=== PATIENT | male | born 1995 | race Caucasian/White ===

== ENCOUNTER 2017-12-13 14:23 | Emergency (ER) | payer OTHER ==
--- OUTSIDE RECORDS SUMMARY | 2017-12-13 14:25 | XMS REPORT ---
:1995 Author Organization eClinicalWorks Care Team Providers Name Role Phone Inna Herring Provider Role Unavailable Allergies No Known Allergies Problems Problem Type Condition Code Onset Dates Condition Status Problem Aspergers' syndrome F84.5 Active Problem Memory deficit R41.3 Active Medications Medication Code System Code Instructions Start End Date Status Dosage Date walking boot [facility] [place] [address] short walking December 12, Active as directed 04-03 boot for ankle 2018 foot fx while up Results No Known Results Summary Purpose [employer]D Submission
--- OUTSIDE RECORDS SUMMARY | 2017-12-13 14:25 | XMS REPORT ---
:1995 Author Organization eClinicalWorks Care Team Providers Name Role Phone Inna Herring Provider Role Unavailable Allergies, Adverse Reactions, Alerts Substance Reaction Event Type N.K.D.A. Info Not Available Non Drug Allergy Problems Problem Type Condition Code Onset Dates Condition Status Problem Aspergers' syndrome F84.5 Active Assessment Memory deficit R41.3 Active Problem Memory deficit R41.3 Active Assessment Arthralgia, unspecified joint M25.50 Active Assessment Aspergers' syndrome F84.5 Active Medications Medication Code System Code Instructions Start End Date Status Dosage Date Benadryl [facility] [address] 25 MG Orally Active 1 tablet Allergy 8-25 every 8 hrs as needed Results No Known Results Summary Purpose eClinicalWorks Submission
--- OUTSIDE RECORDS SUMMARY | 2017-12-13 14:25 | XMS REPORT ---
:1995 Author Organization eClinicalWorks Care Team Providers Name Role Phone Inna Herring Provider Role Unavailable Allergies, Adverse Reactions, Alerts Substance Reaction Event Type N.K.D.A. Info Not Available Non Drug Allergy Problems Problem Type Condition Code Onset Dates Condition Status Assessment Pain in right hand M79.641 Active Problem Aspergers' syndrome F84.5 Active Assessment Memory deficit R41.3 Active Problem Memory deficit R41.3 Active Assessment Pain in right foot M79.671 Active Assessment Pain of left hand M79.642 Active Assessment Aspergers' syndrome F84.5 Active Assessment Pain of left foot M79.672 Active Medications Medication Code Code Instructions Start End Status Dosage System Date Date Benadryl [facility] 57574222112 25 MG Orally Active 1 tablet Allergy every 8 hrs as needed Gabapentin ND 24043742884 300 MG Orally December 05, Active 1 capsule Twice a day 2018 before bedtime Results No Known Results Summary Purpose eClinicalWorks Submission
--- NOTE | 2017-12-13 16:47 | RAD REPORT ---
EXAM DESCRIPTION: RAD - Abdomen 1 View (KUB) - 12/13/2017 4:37 pm CLINICAL HISTORY: Abdominal pain. COMPARISON: None. FINDINGS: The bowel gas pattern is non-obstructive. No evidence of free air or pneumatosis. No suspi cious calcifications. No significant bony findings. Fecal retention in the transverse colon noted. IMPRESSION: Fecal retention in the transverse colon noted.
--- NOTE | 2017-12-13 16:49 | ER ---
Nurse's Notes [facility] Name: iWcho Adams Age: 22 yrs Sex: Male : 1995 Arrival Date: 12/13/2017 Time: 14:27 Bed 27 Private MD: Diagnosis: Constipation Presentation: 12/13 14:28 Presenting complaint: Patient states: i had constipation for days and i had series of hj diarrhea; now my tummy hurts, reports nausea and denies vomiting;. Transition of care: patient was not received from another setting of care. Onset of symptoms was December 13, 2017. Initial Sepsis Screen: Does the patient meet any 2 criteria? No. Patient's initial sepsis screen is negative. Does the patient have a suspected source of infection? No. Patient's initial sepsis screen is negative. Care prior to arrival: None. 14:28 Method Of Arrival: Ambulatory 14:28 Acuity: TAN 3 hj Triage Assessment: 14:31 General: Appears in no apparent distress. uncomfortable, Behavior is calm, cooperative, hj appropriate for age. Pain: Complains of pain in abdomen. GI: Reports lower abdominal pain, upper abdominal pain, nausea. Historical: - Allergies: 14:30 No Known Allergies; hj - Home Meds: 14:30 None [Active]; hj - PMHx: 14:30 None; hj - PSHx: 14:30 None; hj - Immunization history:: Adult Immunizations up to date. - Social history:: Smoking status: Patient/guardian denies using tobacco. Screenin:40 Abuse screen: Denies threats or abuse. Denies injuries from another. Nutritional lk1 screening: No deficits noted. Tuberculosis screening: No symptoms or risk factors identified. Fall Risk None identified. Assessment: 14:31 GI: Bowel sounds present X 4 quads. Abd is soft Abdomen is tender to palpation. hj 16:00 General: Appears in no apparent distress. Behavior is calm, cooperative, appropriate lk1 for age. Pain: Complains of pain in abdomen Pain currently is 4 out of 10 on a pain scale. GI: Bowel sounds present X 4 quads. Abd is soft and non tender. Vital Signs: 14:31 BP 111 / 76; Pulse 104; Resp 18; Temp 97.9(O); Pulse Ox 96% on R/A; Weight 96.16 kg; hj Height 5 ft. 10 in. (177.80 cm); Pain 3/10; 16:00 BP 117 / 72; Pulse 92; Resp 15; Pulse Ox 100% on R/A; lk1 17:00 BP 114 / 72; Pulse 88; Resp 16; Pulse Ox 99% on R/A; lk1 14:31 Body Mass Index 30.42 (96.16 kg, 177.80 cm) ED Course: 14:27 Patient arrived in ED. mr 14:30 Triage completed. hj 14:31 Arm band placed on right wrist. hj 14:52 En Muñoz PA is PHCP. jr8 14:52 Luisito Perdue MD is Attending Physician. jr8 15:17 Lakesha Reeder, RN is Primary Nurse. lk1 15:34 EKG done, by ordnance engineering technician. reviewed by En DIAS. dt2 16:37 XRAY KUB In Process Unspecified. EDMS 17:41 Placed in gown. Bed in low position. Call light in reach. lk1 17:41 No provider procedures requiring assistance completed. Patient did not have IV access lk1 during this emergency room visit. Administered Medications: No medications were administered Outcome: 16:49 Discharge ordered by . jr8 17:41 Discharged to home ambulatory. lk1 17:41 Condition: good 17:41 Discharge instructions given to patient, Instructed on discharge instructions, follow up and referral plans. medication usage, safety practices, Demonstrated understanding of instructions, follow-up care, medications, Prescriptions given X 1. 17:42 Patient left the ED. lk1 Signatures: Dispatcher [employer] EDOK ShyamRadha mr En Muñoz PA PA jr8 Santino Medrano RN RN Lakesha Reeder, RN RN lk1 Karyn Snowden dt2 Corrections: (The following items were deleted from the chart) 14:33 14:31 Pulse 110bpm; Resp 18bpm; Pulse Ox 96% RA; Temp 97.9F Oral; 96.16 kg; Height 5 hj ft. 10 in.; BMI: 30.4; Pain 3/10; hj
--- NOTE | 2017-12-13 16:50 | EDPHYS ---
Physician Documentation [facility] Name: Wicho Adams Age: 22 yrs Sex: Male : 1995 Arrival Date: 12/13/2017 Time: 14:27 Bed 27 Private MD: ED Physician Luisito Perdue HPI: 12/13 15:25 This 22 yrs old Male presents to ER via Ambulatory with complaints of jr8 Constipation. 15:25 Onset: The symptoms/episode began/occurred acutely, 4 day(s) ago. Associated signs and jr8 symptoms: The patient has no apparent associated signs or symptoms. Modifying factors: The patient symptoms are alleviated by nothing, the patient symptoms are aggravated by nothing. The patient has not experienced similar symptoms in the past. The patient has not recently seen a physician. Historical: - Allergies: 14:30 No Known Allergies; hj - Home Meds: 14:30 None [Active]; hj - PMHx: 14:30 None; hj - PSHx: 14:30 None; hj - Immunization history:: Adult Immunizations up to date. - Social history:: Smoking status: Patient/guardian denies using tobacco. ROS: 15:25 Eyes: Negative for injury, pain, redness, and discharge, ENT: Negative for injury, jr8 pain, and discharge, Neck: Negative for injury, pain, and swelling, Cardiovascular: Negative for chest pain, palpitations, and edema, Respiratory: Negative for shortness of breath, cough, wheezing, and pleuritic chest pain, Back: Negative for injury and pain, MS/Extremity: Negative for injury and deformity, Skin: Negative for injury, rash, and discoloration, Neuro: Negative for headache, weakness, numbness, tingling, and seizure. 15:25 Abdomen/GI: Positive for constipation, abdominal cramps, Negative for nausea and vomiting, abdominal distension, anorexia, dysphagia, hematemesis, black/tarry stool, rectal pain, rectal bleeding, bowel incontinence, flatulence. Exam: 15:25 Eyes: Pupils equal round and reactive to light, extra-ocular motions intact. Lids and jr8 lashes normal. Conjunctiva and sclera are non-icteric and not injected. Cornea within normal limits. Periorbital areas with no swelling, redness, or edema. ENT: Nares patent. No nasal discharge, no septal abnormalities noted. Tympanic membranes are normal and external auditory canals are clear. Oropharynx with no redness, swelling, or masses, exudates, or evidence of obstruction, uvula midline. Mucous membranes moist. Neck: Trachea midline, no thyromegaly or masses palpated, and no cervical lymphadenopathy. Supple, full range of motion without nuchal rigidity, or vertebral point tenderness. No Meningismus. Cardiovascular: Regular rate and rhythm with a normal S1 and S2. No gallops, murmurs, or rubs. Normal PMI, no JVD. No pulse deficits. Respiratory: Lungs have equal breath sounds bilaterally, clear to auscultation and percussion. No rales, rhonchi or wheezes noted. No increased work of breathing, no retractions or nasal flaring. Abdomen/GI: Soft, non-tender, with normal bowel sounds. No distension or tympany. No guarding or rebound. No evidence of tenderness throughout. Back: No spinal tenderness. No costovertebral tenderness. Full range of motion. Skin: Warm, dry with normal turgor. Normal color with no rashes, no lesions, and no evidence of cellulitis. MS/ Extremity: Pulses equal, no cyanosis. Neurovascular intact. Full, normal range of motion. Neuro: Awake and alert, GCS 15, oriented to person, place, time, and situation. Cranial nerves II-XII grossly intact. Motor strength 5/5 in all extremities. Sensory grossly intact. Cerebellar exam normal. Normal gait. Vital Signs: 14:31 BP 111 / 76; Pulse 104; Resp 18; Temp 97.9(O); Pulse Ox 96% on R/A; Weight 96.16 kg; hj Height 5 ft. 10 in. (177.80 cm); Pain 3/10; 16:00 BP 117 / 72; Pulse 92; Resp 15; Pulse Ox 100% on R/A; lk1 17:00 BP 114 / 72; Pulse 88; Resp 16; Pulse Ox 99% on R/A; lk1 14:31 Body Mass Index 30.42 (96.16 kg, 177.80 cm) MDM: 14:52 Patient medically screened. jr8 16:48 Data reviewed: vital signs, nurses notes, radiologic studies, plain films, and as a jr8 result, I will discharge patient. Data interpreted: Pulse oximetry: on room air is 96 %. Interpretation: normal. Counseling: I had a detailed discussion with the patient and/or guardian regarding: the historical points, exam findings, and any diagnostic results supporting the discharge/admit diagnosis, radiology results, the need for outpatient follow up, a family practitioner, to return to the emergency department if symptoms worsen or persist or if there are any questions or concerns that arise at home. 12/13 15:13 Order name: LINDY HO; Complete Time: 16:48 jr8 12/13 16:38 Order name: EKG Electrocardiogram EDMS Administered Medications: No medications were administered Disposition: 12/14 06:49 Co-signature as Attending Physician, Luisito Perdue MD I agree with the assessment and wa plan of care. Disposition: 12/13/17 16:49 Discharged to Home. Impression: Constipation. - Condition is Stable. - Discharge Instructions: Constipation, Adult. - Prescriptions for Miralax 17 gram/dose Oral - take 1 packet by ORAL route once daily dilute powder in 8 ounces of water or juice; 1 box. - Medication Reconciliation Form, Thank You Letter, Antibiotic Education, Prescription Opioid Use form. - Follow up: Private Physician; When: 2 - 3 days; Reason: Recheck today's complaints, Continuance of care, Re-evaluation by your physician. - Problem is new. - Symptoms have improved. Signatures: Dispatcher [employer] EDMS En Muñoz PA PA jr8 Santino Medrano RN RN Lakesha Reeder RN RN lk1 Luisito Perdue MD MD wa Corrections: (The following items were deleted from the chart) 12/13 17:42 16:49 12/13/2017 16:49 Discharged to Home. Impression: Constipation. Condition is lk1 Stable. Forms are Medication Reconciliation Form, Thank You Letter, Antibiotic Education, Prescription Opioid Use. Follow up: Private Physician; When: 2 - 3 days; Reason: Recheck today's complaints, Continuance of care, Re-evaluation by your physician. Problem is new. Symptoms have improved. jr8
--- NOTE | 2017-12-14 06:46 | EKG ---
Test Date: 2017-12-13 Test Time: 15:06:27 Podiatric Medicine Professor: NEELAM MEASUREMENT RESULTS: Intervals: Rate: 81 AK: 142 QRSD: 90 QT: 366 QTc: 425 [place]: P: 54 AK: 142 QRS: 46 T: 29 INTERPRETIVE STATEMENTS: Normal sinus rhythm with sinus arrhythmia Normal ECG No previous ECG available for comparison Electronically Signed On 12-14-17 06:45:34 CDT by Pete Butt
== END 2017-12-13 17:42 | disposition home or self-care (01) ==
LOC: ER 14:23
DX: K59.00 Constipation, unspecified (principal)
CPT/HCPCS: 74018; 93005; 99283

== ENCOUNTER 2018-04-22 13:13 | Emergency (ER) | payer OTHER ==
--- OUTSIDE RECORDS SUMMARY | 2018-04-22 13:18 | XMS REPORT ---
[...] Start End Date Status Dosage Date Benadryl [facility] [address] 25 MG Orally Active 1 tablet Allergy 8-25 every 8 hrs as needed Results No Known Results Summary Purpose eClinicalWorks Submission
--- OUTSIDE RECORDS SUMMARY | 2018-04-22 13:18 | XMS REPORT ---
:1995 Author Organization eClinicalWorks Care Team Providers Name Role Phone Inna Herring Provider Role Unavailable Allergies No Known Allergies Problems Problem Type Condition Code Onset Dates Condition Status Problem Aspergers' syndrome F84.5 Active Problem Memory deficit R41.3 Active Medications No Known Medications Results No Known Results Summary Purpose eClinicalWorks Submission
--- OUTSIDE RECORDS SUMMARY | 2018-04-22 13:18 | XMS REPORT ---
:1995 Author Organization eClinicalWorks Care Team Providers Name Role Phone Inna Herring Provider Role Unavailable Allergies No Known Allergies Problems Problem Type Condition Code Onset Dates Condition Status Problem Aspergers' syndrome F84.5 Active Problem Memory deficit R41.3 Active Medications Medication Code System Code Instructions Start End Date Status Dosage Date walking boot [facility] [address] short walking December 12, Active as directed 04-03 boot for ankle 2018 foot fx while up Results No Known Results Summary Purpose [employer] Submission
--- OUTSIDE RECORDS SUMMARY | 2018-04-22 13:18 | XMS REPORT ---
[...] End Status Dosage System Date Date Benadryl [facility] 17445983944 25 MG Orally Active 1 tablet Allergy every 8 hrs as needed Gabapentin ND 53107981935 300 MG Orally December 05, Active 1 capsule Twice a day 2018 before bedtime Results No Known Results Summary Purpose eClinicalWorks Submission
[2018-04-22 14:06] LABS: Absolute Lymphocytes (CBC) 1.4 K/uL (0.7-4.9); Absolute Monocytes 0.5 K/uL (0.1-1.3); Basophils % 0.1 % (0-1.3); Eosinophils % 0.7 % (0-4.4); Lymphocytes % 10.1 % (15.3-44.8); MCH 28.1 pg (27.0-35.0); MCV 81.7 fL (80-100); Monocytes % 3.4 % (3.3-12.3); RBC Red Blood Cell Count 5.62 M/uL (4.33-5.43)
--- NOTE | 2018-04-22 14:29 | RAD REPORT ---
EXAM DESCRIPTION: US - Extremity Venous Uni Ltd - 04/22/2018 2:10 pm CLINICAL HISTORY: SWELLING Leg swelling and edema. COMPARISON: No comparisons FINDINGS: There is excessive skin or subcutaneous tissue shadowing seen throughout the right lower e xtremity, cause uncertain, with nonvisualization of the vessels. Air could be present in the subcutan eous tissues. The submitted study is considered nondiagnostic.
[2018-04-22 14:43] LABS: C-Reactive Protein 27.3 mg/L (<3.00); Potassium 3.6 mmol/L (3.5-5.1)
--- NOTE | 2018-04-22 14:46 | RAD REPORT ---
EXAM DESCRIPTION: RAD - Chest Pa And Lat (2 Views) - 04/22/2018 2:36 pm CLINICAL HISTORY: DYSPNEA Chest pain. COMPARISON: Abdomen 1 View (KUB) dated 12/13/2017 FINDINGS: Significant subcutaneous emphysema is present in the chest. Pneumomediastinum is also pres ent. Pneumoperitoneum is also likely present. No pneumothorax. The heart is normal in size. No displa matt fractures. The findings were discussed with Dr. Upton in the ER 2:42 p.m. 04/22/2018 by telephone.
[2018-04-22] MEDS ORDERED: PIPER/TAZO/NS 3.375gm 3.375 GM/100 ML BAG ONE (15:21)
--- NOTE | 2018-04-22 16:03 | RAD REPORT ---
EXAM DESCRIPTION: CT - Lower Extremity W/ Cont - 04/22/2018 3:52 pm CLINICAL HISTORY: Leg pain and swelling. Subcutaneous air. COMPARISON: Chest Abdomen Pelvis W Cont dated 04/22/2018 FINDINGS: Air is present within the retroperitoneum as well as along the fascial planes of the right lower extremity extending throughout the subcutaneous fat along the soft tissues of the entire right lower including the foot. No vascular compromise is seen. No soft tissue mass or hematoma seen. No s kin thickening or seen. No overt findings of an soft tissue infection are present. No bony abnormalit y discerned. No localized fluid collections. All CT scans are performed using dose optimization technique as appropriate and may include automated exposure control or mA/KV adjustment according to patient size. IMPRESSION: A large amount of subcutaneous and intrafascial air is seen throughout the right lower e xtremity. Air is seen extending into the right retroperitoneal cyst spaces as well. There is no clear evidence of soft tissue infection or other readily identifiable etiology for this abnormality.
--- NOTE | 2018-04-22 16:09 | RAD REPORT ---
EXAM DESCRIPTION: CT - Chest Abdomen Pelvis W Cont - 04/22/2018 3:52 pm CLINICAL HISTORY: Chest and abdomen pain. subcutaneous air COMPARISON: No comparisons TECHNIQUE: Approximately 100 mL nonionic IV contrast was administered to the patient. All CT scans are performed using dose optimization technique as appropriate and may include automated exposure control or mA/KV adjustment according to patient size. FINDINGS: A large amount of subcutaneous emphysema is seen bilaterally in the neck as well as in the right aspect of the chest.Moderate pneumomediastinum is present. A small to moderate inferior left p neumothorax is seen estimated at 20% of lung volume. Mild pneumoperitoneum is present along with a re troperitoneal air. Air seen tracking inferiorly into the right lower extremity. No acute solid organ finding is identified. No bowel obstruction, free fluid or abscess. No worrisome bony finding. IMPRESSION: Extensive subcutaneous emphysema, pneumomediastinum, left inferior pneumothorax (20% of lung volume), pneumoperitoneum, retroperitoneal air and right lower extremity soft tissue air as deta iled.No clear identifiable etiology for this finding is identified. Findings were discussed with Dr. Upton in the emergency room 4:05 p.m. 04/22/2018 by telephone.
[2018-04-22] MEDS ORDERED: D5 0.45 NS 1,000 ML IV ONE (16:17)
[2018-04-22 16:31] LABS: Blood Morphology Comment NOT SEEN (NOT SEEN); Platelet Estimate ADEQ; Platelets, Giant FEW; Urine White Blood Cell Casts OK
--- NOTE | 2018-04-22 17:01 | ER ---
Nurse's Notes [facility] Name: Wicho Adams Age: 22 yrs Sex: Male : 1995 Arrival Date: 04/22/2018 Time: 13:19 Bed 5 Private MD: Diagnosis: Pneumomediastinum;Pneumoperitoneum;Pneumothorax, unspecified Presentation: 04/22 13:22 Presenting complaint: Patient states: right thigh swelling that began last night. Pt aa5 states "my leg was hurting but it quit a few hours ago". Pt also reports SOB. Transition of care: patient was not received from another setting of care. Onset of symptoms was April 2018. Risk Assessment: Do you want to hurt yourself or someone else? Patient reports no desire to harm self or others. Initial Sepsis Screen: Does the patient meet any 2 criteria? No. Patient's initial sepsis screen is negative. Does the patient have a suspected source of infection? No. Patient's initial sepsis screen is negative. Care prior to arrival: None. 13:22 Method Of Arrival: Ambulatory aa5 13:22 Acuity: TAN 2 aa5 Historical: - Allergies: 13:24 No Known Allergies; aa5 - Home Meds: 13:24 None [Active]; aa5 - PMHx: 13:24 None; aa5 - PSHx: 13:24 None; aa5 - Immunization history:: Adult Immunizations up to date. - Social history:: Smoking status: Patient/guardian denies using tobacco. - Ebola Screening: : No symptoms or risks identified at this time. - Family history:: not pertinent. - Hospitalizations: : No recent hospitalization is reported. Screenin:40 Abuse screen: Denies threats or abuse. Denies injuries from another. Nutritional sv screening: No deficits noted. Tuberculosis screening: No symptoms or risk factors identified. Fall Risk No fall in past 12 months (0 pts). No secondary diagnosis (0 pts). IV access (20 points). Ambulatory Aid- None/Bed Rest/Nurse Assist (0 pts). Gait- Normal/Bed Rest/Wheelchair (0 pts) Mental Status- Oriented to own ability (0 pts). Total Barnes Fall Scale indicates No Risk (0-24 pts). Assessment: 13:40 General: Appears in no apparent distress. uncomfortable, well developed, Behavior is sv calm, cooperative, appropriate for age. Pain: Denies pain. Neuro: Level of Consciousness is awake, alert, obeys commands, Oriented to person, place, time, situation, Moves all extremities. Cardiovascular: Patient's skin is warm and dry. Respiratory: Reports shortness of breath on exertion cough that is dry, Airway is patent Respiratory effort is even, unlabored, Respiratory pattern is regular, symmetrical. Derm: Skin is pink, warm \\T\\ dry. Musculoskeletal: Range of motion: intact in all extremities, Swelling present in right leg Crepitus present in right leg and right side of neck. 15:00 Reassessment: Patient appears in no apparent distress at this time. No changes from sv previously documented assessment. Patient and/or family updated on plan of care and expected duration. Pain level reassessed. Patient is alert, oriented x 3, equal unlabored respirations, skin warm/dry/pink. 16:08 Reassessment: Patient appears in no apparent distress at this time. No changes from sv previously documented assessment. Patient and/or family updated on plan of care and expected duration. Pain level reassessed. Patient is alert, oriented x 3, equal unlabored respirations, skin warm/dry/pink. 17:26 Reassessment: report given to ALEXIA Lee of [facility]. mg2 Vital Signs: 13:24 BP 131 / 90; Pulse 133; Resp 18 S; Temp 98.2(TE); Pulse Ox 96% on R/A; Weight 96.16 kg aa5 (R); Height 5 ft. 11 in. (180.34 cm) (R); Pain 0/10; 15:00 BP 129 / 94; Pulse 118; Resp 25; Pulse Ox 99% ; sv 16:07 BP 124 / 82; Pulse 110; Resp 25; Pulse Ox 96% ; sv 16:16 Pulse Ox 100% on Non-rebreather mask; sv 17:00 BP 119 / 94; Pulse 103; Resp 20; Pulse Ox 100% on 10% Non-rebreather mask; mg2 18:32 BP 128 / 84; Pulse 93; Resp 18; Pulse Ox 100% on Non-rebreather mask; mg2 13:24 Body Mass Index 29.57 (96.16 kg, 180.34 cm) aa5 ED Course: 13:19 Patient arrived in ED. mr 13:23 Triage completed. aa5 13:23 Arm band placed on. aa5 13:27 Charisma Ruth RN is Primary Nurse. sv 13:27 Jae Upton MD is Attending Physician. rn 13:40 Patient has correct armband on for positive identification. Placed in gown. Bed in low sv position. Call light in reach. ekg monitor on. Pulse ox on. NIBP on. Door closed. Warm blanket given. Head of bed elevated. 13:40 Initial lab(s) drawn, by me, sent to lab. Inserted saline lock: 20 gauge in right sv antecubital area, using aseptic technique. Blood collected. Flushed right antecubital with 5 ml normal saline. 13:50 Patient taken to ultrasound. via wheelchair. sv 14:10 Ultrasound completed. Patient tolerated well. Patient moved back from ultrasound. aa4 14:10 Extremity Venous Uni Ltd US In Process Unspecified. EDMS 14:21 EKG done, by medical technologist clinical. reviewed by Jae Upton MD. sm3 14:36 XRAY Chest Pa And Lat (2 Views) In Process Unspecified. EDMS 15:[address] sw 15:54 CT Chest, Abdomen, Pelvis - W/Contrast In Process Unspecified. EDMS 15:54 Lower Extremity W/ Cont In Process Unspecified. EDMS 16:32 transfer approval from receiving facility. sv 16:46 Primary Nurse role handed off by Charisma Ruth RN sv 16:46 Report given to Yulissa HALE. sv 16:47 Junior Landrum, ALEXIA is Primary Nurse. mg2 18:33 No provider procedures requiring assistance completed. Patient transferred, IV remains mg2 in place. Administered Medications: 16:07 Drug: Zosyn 3.375 grams Route: IVPB; Infused Over: 60 mins; Site: right antecubital; sv 16:16 Drug: D5-1/2 NS 1000 ml Route: IV; Rate: 125 ml/hr; Site: right antecubital; sv Outcome: 17:00 ER care complete, transfer ordered by . rn 18:33 Transferred by ground EMS to [facility]. mg2 18:33 Condition: stable 18:33 Instructed on the need for transfer, Demonstrated understanding of instructions. 18:34 Patient left the ED. mg2 Signatures: Dispatcher [employer] EDMS Faraz, CharismaALEXIA antoine RN, Maria mr Sharma, Lauren aa4 Jae Upton MD MD rn Calderon, Audri, RN RN aa5 Joy Corbin Michele, RN RN mg2 Montes, Shakira 3 Corrections: (The following items were deleted from the chart) 15:36 13:22 Acuity: TAN 3 aa5 aa5
--- NOTE | 2018-04-22 17:01 | EDPHYS ---
Physician Documentation [facility] Name: Wicho Adams Age: 22 yrs Sex: Male : 1995 Arrival Date: 04/22/2018 Time: 13:19 Bed 5 Private MD: ED Physician Jae Upton HPI: 04/22 14:31 This 22 yrs old Male presents to ER via Ambulatory with complaints of rn Swelling of Lower Extremity. 14:31 The patient presents with swelling. The complaints affect the right leg. Onset: The rn symptoms/episode began/occurred this morning. Severity of symptoms: At their worst the symptoms were mild, in the emergency department the symptoms are unchanged. The patient has not experienced similar symptoms in the past. Reports noticed RLE swelling this AM, no trauma, no fever, had calf pain last night but no current pain, no hx of DVT/PE, + brief period of sob, but no longer has sob. No cough. No chest pain. No abd pain.. Historical: - Allergies: 13:24 No Known Allergies; aa5 - Home Meds: 13:24 None [Active]; aa5 - PMHx: 13:24 None; aa5 - PSHx: 13:24 None; aa5 - Immunization history:: Adult Immunizations up to date. - Social history:: Smoking status: Patient/guardian denies using tobacco. - Ebola Screening: : No symptoms or risks identified at this time. - Family history:: not pertinent. - Hospitalizations: : No recent hospitalization is reported. ROS: 14:31 Constitutional: Negative for fever, chills, and weight loss, Eyes: Negative for injury, rn pain, redness, and discharge, Neck: Negative for injury, pain, and swelling, Cardiovascular: Negative for chest pain, palpitations, and edema, Respiratory: Negative for shortness of breath, cough, wheezing, and pleuritic chest pain, Abdomen/GI: Negative for abdominal pain, nausea, vomiting, diarrhea, and constipation, Back: Negative for injury and pain, MS/Extremity: + swelling to RLE Skin: Negative for injury, rash, and discoloration, Neuro: Negative for headache, weakness, numbness, tingling, and seizure. Exam: 14:31 Constitutional: This is a well developed, well nourished patient who is awake, alert, rn and in no acute distress. Head/Face: Normocephalic, atraumatic. Eyes: Pupils equal round and reactive to light, extra-ocular motions intact. Lids and lashes normal. Conjunctiva and sclera are non-icteric and not injected. Cornea within normal limits. Periorbital areas with no swelling, redness, or edema. Neck: Trachea midline, no thyromegaly or masses palpated, and no cervical lymphadenopathy. Supple, full range of motion without nuchal rigidity, or vertebral point tenderness. No Meningismus. Chest/axilla: Normal chest wall appearance and motion. Nontender with no deformity. No lesions are appreciated. + mild crepitus palpated right chest wall Cardiovascular: Regular rate and rhythm with a normal S1 and S2. No gallops, murmurs, or rubs. Normal PMI, no JVD. No pulse deficits. Respiratory: Lungs have equal breath sounds bilaterally, clear to auscultation and percussion. No rales, rhonchi or wheezes noted. No increased work of breathing, no retractions or nasal flaring. Abdomen/GI: Soft, non-tender, with normal bowel sounds. No distension or tympany. No guarding or rebound. No evidence of tenderness throughout. Back: No spinal tenderness. No costovertebral tenderness. Full range of motion. MS/ Extremity: Pulses equal, no cyanosis. Neurovascular intact. Full, normal range of motion. RLE with 2cm greater circumference than LLE, + crepitus from RLE knee to right groin, no fluctuance, FROM. Neuro: Awake and alert, GCS 15, oriented to person, place, time, and situation. Cranial nerves II-XII grossly intact. Motor strength 5/5 in all extremities. Sensory grossly intact. Cerebellar exam normal. Normal gait. Vital Signs: 13:24 BP 131 / 90; Pulse 133; Resp 18 S; Temp 98.2(TE); Pulse Ox 96% on R/A; Weight 96.16 kg aa5 (R); Height 5 ft. 11 in. (180.34 cm) (R); Pain 0/10; 15:00 BP 129 / 94; Pulse 118; Resp 25; Pulse Ox 99% ; sv 16:07 BP 124 / 82; Pulse 110; Resp 25; Pulse Ox 96% ; sv 16:16 Pulse Ox 100% on Non-rebreather mask; sv 17:00 BP 119 / 94; Pulse 103; Resp 20; Pulse Ox 100% on 10% Non-rebreather mask; mg2 18:32 BP 128 / 84; Pulse 93; Resp 18; Pulse Ox 100% on Non-rebreather mask; mg2 13:24 Body Mass Index 29.57 (96.16 kg, 180.34 cm) aa5 MDM: 13:27 Patient medically screened. rn 16:57 Differential diagnosis: pneumomediastinum, pneumoperitoneum, myositis, infection. Data rn reviewed: vital signs, nurses notes, lab test result(s), EKG, radiologic studies, CT scan, doppler, plain films, and as a result, I will admit patient. Counseling: I had a detailed discussion with the patient and/or guardian regarding: the historical points, exam findings, and any diagnostic results supporting the discharge/admit diagnosis, lab results, radiology results, the need for further work-up and treatment in the hospital. Admission orders: after a detailed discussion of the patient's condition and case, the admit orders are written by me. ED course: Accepted for transfer to [facility] for higher level of care, given pneumomediastinum and pneumoperitoneum, zosyn given, no sob and small PTX that he was placed on non-rebreather. . 04/22 13:39 Order name: CBC with Diff; Complete Time: 16:32 rn 04/22 13:39 Order name: Basic Metabolic Panel; Complete Time: 14:48 rn 04/22 13:39 Order name: ESR; Complete Time: 16:32 rn 04/22 13:39 Order name: CRP; Complete Time: 14:48 rn 04/22 13:39 Order name: Procalcitonin; Complete Time: 14:38 rn 04/22 13:39 Order name: Blood Culture Adult (2) rn 04/22 13:39 Order name: Extremity Venous Uni Ltd US; Complete Time: 14:37 rn 04/22 13:39 Order name: XRAY Chest Pa And Lat (2 Views); Complete Time: 14:48 rn 04/22 13:39 Order name: CK; Complete Time: 14:48 rn 04/22 14:38 Order name: CT Chest, Abdomen, Pelvis - W/Contrast; Complete Time: 16:27 rn 04/22 14:46 Order name: Lower Extremity W/ Cont; Complete Time: 16:27 [facility] 04/22 16:31 Order name: CBC Smear Scan; Complete Time: 16:32 [facility] 04/22 13:39 Order name: IV Start; Complete Time: 13:47 rn 04/22 13:39 Order name: EKG; Complete Time: 13:40 rn 04/22 13:39 Order name: EKG - Nurse/Tech; Complete Time: 14:25 rn 04/22 16:10 Order name: Oxygen; Complete Time: 16:15 rn Administered Medications: 16:07 Drug: Zosyn 3.375 grams Route: IVPB; Infused Over: 60 mins; Site: right antecubital; sv 16:16 Drug: D5-1/2 NS 1000 ml Route: IV; Rate: 125 ml/hr; Site: right antecubital; sv Disposition: 04/22/18 17:00 Transfer ordered to [facility]. Diagnosis are Pneumomediastinum, Pneumoperitoneum, Pneumothorax, unspecified. - Reason for transfer: Higher level of care. - Accepting physician is . - Condition is Stable. - Problem is new. - Symptoms have improved. Signatures: Dispatcher [employer] [facility] Charisma Ruth RN RN sv Jae Upton MD MD rn Calderon, Audri, RN RN aa5 Junior Landrum RN RN mg2 Corrections: (The following items were deleted from the chart) 14:45 14:38 Chest Abdomen W/ Con+CT.RAD.BRZ ordered. [facility] 17:00 17:00 04/22/2018 17:00 Transfer ordered to [facility]. Diagnosis is rn Pneumomediastinum; Pneumoperitoneum. Reason for transfer: Higher level of care. Accepting physician is . Condition is Stable. Problem is new. Symptoms have improved. rn 18:34 17:00 04/22/2018 17:00 Transfer ordered to [facility]. Diagnosis is mg2 Pneumomediastinum; Pneumoperitoneum; Pneumothorax, unspecified. Reason for transfer: Higher level of care. Accepting physician is . Condition is Stable. Problem is new. Symptoms have improved. rn
--- NOTE | 2018-04-23 00:34 | EKG ---
Test Date: 2018-04-22 Test Time: 14:09:01 [employer] Director: MAKSIM MEASUREMENT RESULTS: Intervals: Rate: 104 RI: 146 QRSD: 94 QT: 320 QTc: 420 [place]: P: 52 RI: 146 QRS: 55 T: 37 INTERPRETIVE STATEMENTS: Sinus tachycardia Otherwise normal ECG Compared to ECG 12/13/2017 15:06:27 Sinus rhythm no longer present Sinus arrhythmia no longer present Electronically Signed On 04-23-18 00:32:09 CDT by Jose David Vitale
== END 2018-04-22 18:34 | disposition short-term general hospital (02) ==
LOC: ER 13:13
DX: J98.2 Interstitial emphysema (principal); J93.9 Pneumothorax, unspecified; K66.8 Other specified disorders of peritoneum
CPT/HCPCS: 36415; 71046; 71260; 73701; 74177; 80048; 82550; 84145; 85025; 85652; 86140; 87040; 93005; 93971; 96374; 99285; J2543; Q9967

== ENCOUNTER 2019-01-01 01:05 | Emergency (ER) | payer OTHER ==
--- OUTSIDE RECORDS SUMMARY | 2019-01-01 01:09 | XMS REPORT ---
[...] Start End Date Status Dosage Date Benadryl [facility] [address]772 25 MG Orally Active 1 tablet Allergy 8-25 every 8 hrs as needed Results No Known Results Summary Purpose [employer] Submission
--- OUTSIDE RECORDS SUMMARY | 2019-01-01 01:09 | XMS REPORT ---
:1995 Author Organization e[employer] Care Team Providers Name Role Phone Inna Herring Provider Role Unavailable Allergies No Known Allergies Problems Problem Type Condition Code Onset Dates Condition Status Problem Aspergers' syndrome F84.5 Active Problem Memory deficit R41.3 Active Medications Medication Code System Code Instructions Start End Date Status Dosage Date walking boot [facility] [address] short walking December 12, Active as directed 04-03 boot for ankle 2018 foot fx while up Results No Known Results Summary Purpose [employer] Submission
--- OUTSIDE RECORDS SUMMARY | 2019-01-01 01:09 | XMS REPORT ---
[...] End Status Dosage System Date Date Benadryl [facility] 49116025285 25 MG Orally Active 1 tablet Allergy every 8 hrs as needed Gabapentin ND 48804536509 300 MG Orally December 05, Active 1 capsule Twice a day 2018 before bedtime Results No Known Results Summary Purpose [employer] Submission
--- OUTSIDE RECORDS SUMMARY | 2019-01-01 01:09 | XMS REPORT ---
:1995 [facility] Address [address] [place] [address] Care Team Providers Name Role Phone ELSI MARTINEZ Unavailable Unavailable Problems This patient has no known problems. Allergies, Adverse Reactions, Alerts This patient has no known allergies or adverse reactions. Medications This patient has no known medications. Results Test Description Test Time Test Comments Text Results Atomic Results Result Comments RAD, CHEST, 2018-04-25 Reason for FINAL REPORT PATIENT ID: 1 VIEW, NON 09:24:00 exam:->pneumothoraxShould this [id number] Chest one view DEPT be performed at the INDICATION: Pneumothorax bedside?->Yes COMPARISON: 04/24/2018 IMPRESSION: Two frontal images of the chest are provided. Neck chest and abdominal wall subcutaneous emphysema, pneumomediastinum, and pneumopericardium are again noted. A small volume left pneumothorax appears mildly larger. Along with pleural fluid this is in keeping with a hydropneumothorax. There is upper abdominal pneumoretroperitoneum as on CT. There are low lung volumes with pulmonary vascular congestion and basilar lung opacities that may reflect atelectasis. Pneumonitis or aspiration cannot be excluded. Heart size is within normal limits. The bones appear intact. Signed: [facility] Verified Date/Time: 04/25/2018 09:24:12 Reading Location: [facility] Radiology Reading Room MIN B12 AND FOLATE 2018-04-25 02:48:00 Test Item Value Reference Range Comments VITAMIN B12 (BEAKER) (test yrak=340) < pg/mL 213-816 FOLATE (BEAKER) (test rulc=350) 2.4 ng/mL >=7.0 VANCOMYCIN LEVEL, [id number] 02:10:00 Test Item Value Reference Range Comments VANCOMYCIN TROUGH (DENNIS) (test qtcm=779) 8.6 ug/mL 10.0-20.0 CT, CHEST, WITH [id number] 12:29:00Left pneumothorax and pneumediastinum with pneumoperitoneum and air extending to RLE by outside CT, please f/u with repeat eval 04/24/18 in AM please eval with CT thorax/abd/ pelvisFINAL REPORT TECHNIQUE: CT of the chest, abdomen, and pelvis WITH intravenouscontrast and WITHOUT oral contrast. Dose modulation, iterative reconstruction, and/or weight-based adjustment of the mA/kV was utilized to reduce the radiation dose to as low as reasonably achievable. INDICATION: 22-year-old man with pneumothorax, pneumomediastinum, and pneumoperitoneum. COMPARISON: Chest radiograph from earlier same date. FINDINGS : LINES/TUBES: None. LUNGS AND AIRWAYS: Central airways are patent. Mild atelectasis in the left lung base. No consolidation or suspicious pulmonary nodule.PLEURA: Small basilar predominant hydropneumothorax on the left. Trace right pleural effusion.HEART AND MEDIASTINUM: The visualized thyroid gland is normal. No significant mediastinal, hilar, or axillary lymphadenopathy. The heart and pericardium are within normal limits. Pneumomediastinum. HEPATOBILIARY : No focal hepatic lesions. Gallbladder is unremarkable. No biliary ductal dilatation.SPLEEN: Nosplenomegaly.PANCREAS: No focal masses or ductal dilatation. ADRENALS: No adrenal nodules.KIDNEYS/URETERS: No hydronephrosis, stones, or solid mass lesions.PELVIC ORGANS/BLADDER: The bladder is underdistended, limiting its evaluation. Prostate and seminal vesicles are grossly unremarkable. PERITONEUM/RETROPERITONEUM: Moderate amount of free air in the retroperitoneum, particularly on the right. Small-moderate amount of intraperitoneal air, also concentrated on the right.LYMPH NODES: No lymphadenopathy.VESSELS: Unremarkable. GI TRACT: No distention or wall thickening. Normal appendix. BONES AND SOFTTISSUES: Bones are unremarkable. Air in the soft tissues of the lower neck right chest and abdominalwall, right groin , and visualized right thigh. IMPRESSION:Small left hydropneumothorax. Pneumomediastinum. Pneumoperitoneum and pneumoretroperitoneum, predominantly on the right. Subcutaneous emphysema in the lower neck and along the right side of the chest, abdomen, and visualized right thigh. Signed: Shemar Ramsey [facility] Verified Date/Time: 04/24/2018 12:29:48 Reading Location: [facility] B1 C013Y CT Body Reading Room CT, [id number] 12:29:00Left pneumothorax and pneumediastinum with pneumoperitoneum and air extending to RLE by outside CT, please f/u with repeat eval 04/24/18 in AM [address] thorax/abd/pelvisFINAL REPORT TECHNIQUE: CT of the chest, abdomen, and pelvis WITH intravenouscontrast and WITHOUT oral contrast. Dose modulation, iterative reconstruction, and/or weight-based adjustment of the mA/kV was utilized to reduce the radiation dose to as low as reasonably achievable. INDICATION: 22- year-old man with pneumothorax, pneumomediastinum, and pneumoperitoneum. COMPARISON: Chest radiograph from earlier same date. FINDINGS: LINES/TUBES: None. LUNGS AND AIRWAYS: Central airways are patent. Mild atelectasis in the left lung base. No consolidation or suspicious pulmonary nodule.PLEURA: Small basilar predominant hydropneumothorax on the left. Trace right pleural effusion.HEART AND MEDIASTINUM: The visualized thyroid gland is normal. No significant mediastinal, hilar, or axillary lymphadenopathy. The heart and pericardium are within normal limits. Pneumomediastinum. HEPATOBILIARY: No focal hepatic lesions. Gallbladder is unremarkable. No biliary ductal dilatation.SPLEEN: Nosplenomegaly.PANCREAS: No focal masses or ductal dilatation. ADRENALS: No adrenal nodules.KIDNEYS/URETERS: No hydronephrosis, stones, or solid mass lesions.PELVIC ORGANS/BLADDER: The bladder is underdistended, limiting its evaluation. Prostate and seminal vesicles are grossly unremarkable. PERITONEUM/RETROPERITONEUM: Moderate amount of free air in the retroperitoneum, particularly on the right. Small-moderate amount of intraperitoneal air, also concentrated on the right.LYMPH NODES: No lymphadenopathy.VESSELS: Unremarkable. GI TRACT: No distention or wall thickening. Normal appendix. BONES AND SOFTTISSUES: Bones are unremarkable. Air in the soft tissues of the lower neck right chest and abdominalwall, right groin , and visualized right thigh. IMPRESSION:Small left hydropneumothorax. Pneumomediastinum. Pneumoperitoneum and pneumoretroperitoneum, predominantly on the right. Subcutaneous emphysema in the lower neck and along the right side of the chest, abdomen, and visualized right thigh. Signed: Shemar Ramsey [facility] Verified Date/Time: 04/24/2018 12:29:48 Reading Location: [facility] B1 C013Y CT Body Reading Room RAD, CHEST, 1 VIEW, NON [id number] 07:33:00Reason for exam:->spontaneous PTX, pneumomediastinumShould this be performed at the bedside?->YesFINAL REPORT Chest one view INDICATION: Spontaneous pneumothorax, pneumomediastinum COMPARISON: 04/23/2018 IMPRESSION: Bilateral chest and lower neck subcutaneous emphysema, pneumomediastinum, and pneumopericardium are again noted. Small left apical pneumothorax appears decreased. Minimal right pneumothorax is suspected. Upper abdominal lucency is present which may reflect pneumoperitoneum or retroperitoneal gas. There are low lung volumes with pulmonary vascular prominent and basilar lung opacities that may reflect atelectasis. Pneumonitis or aspiration cannot be excluded, however. Heart size is within normal limits. The bones appear intact. Signed: Edvin Garcia [facility] Verified Date/Time: 04/24/2018 07:33:30 Reading Location: [facility] Radiology Reading Room HEPATIC FUNCTION [id number] 05:47:00 Test Item Value Reference Range Comments TOTAL PROTEIN (BEAKER) (test ifsd=380) 7.0 gm/dL 6.0-8.3 ALBUMIN (BEAKER) (test xdul=5284) 4.1 g/dL 3.5-5.0 BILIRUBIN TOTAL (BEAKER) (test fxte=375) 1.7 mg/dL 0.2-1.2 BILIRUBIN DIRECT (BEAKER) (test hmpe=823) 0.6 mg/dL 0.1-0.5 ALKALINE PHOSPHATASE (BEAKER) (test okgn=273) 46 U/L 40-150 AST (SGOT) (BEAKER) (test jstp=087) 12 U/L 5-34 ALT (SGPT) (BEAKER) (test bwoy=424) 15 U/L 6-55 BASIC METABOLIC [id number] 05:47:00 Test Item Value Reference Range Comments SODIUM (BEAKER) (test 137 meq/L 136-145 fivd=795) POTASSIUM (BEAKER) (test 4.1 meq/L 3.5-5.1 tkqr=501) CHLORIDE (BEAKER) (test 105 meq/L 98-107 gawc=615) CO2 (BEAKER) (test 25 meq/L 22-29 mjva=624) BLOOD UREA NITROGEN 8 mg/dL 7-21 (BEAKER) (test kgaa=877) CREATININE (BEAKER) (test 0.95 mg/dL 0.57-1.25 tjax=137) GLUCOSE RANDOM (BEAKER) 89 mg/dL 70-105 (test mpai=040) CALCIUM (BEAKER) (test 9.7 mg/dL 8.4-10.2 gcua=813) EGFR (BEAKER) (test 98 mL/min/1.73 sq m ESTIMATED GFR IS NOT vxxo=2644) ACCURATE CREATININE CLEARANCE IN PREDICTING GLOMERULAR FILTRATION RATE. ESTIMATED GFR IS NOT APPLICABLE FOR DIALYSIS PATIENTS. PROTHROMBIN TIME/[id number] 05:42:00 Test Item Value Reference Range Comments PROTIME (BEAKER) (test kqjs=510) 15.9 seconds 11.7-14.7 INR (BEAKER) (test ofhy=604) 1.3 <=5.9 RECOMMENDED COUMADIN/WARFARIN INR THERAPY RANGESSTANDARD DOSE: 2.0 - 3.0 Includes: PROPHYLAXIS forvenous thrombosis, systemic embolization; TREATMENT for venous thrombosis and/or pulmonary embolus.HIGH RISK: Target INR is 2.5-3.5 for patients with mechanical heart valves.CBC W/PLT COUNT & AUTO [id number] 05:28:00 Test Item Value Reference Range Comments WHITE BLOOD CELL COUNT (BEAKER) (test aycu=688) 7.7 K/ L 3.5-10.5 RED BLOOD CELL COUNT (BEAKER) (test jkby=732) 5.27 M/ L 4.63-6.08 HEMOGLOBIN (BEAKER) (test gksf=924) 14.5 GM/DL 13.7-17.5 HEMATOCRIT (BEAKER) (test tayj=803) 43.6 % 40.1-51.0 MEAN CORPUSCULAR VOLUME (BEAKER) (test jggi=822) 82.7 fL 79.0-92.2 MEAN CORPUSCULAR HEMOGLOBIN (BEAKER) (test 27.5 pg 25.7-32.2 rthk=397) MEAN CORPUSCULAR HEMOGLOBIN CONC (BEAKER) (test 33.3 GM/DL 32.3-36.5 mbkd=395) RED CELL DISTRIBUTION WIDTH (BEAKER) (test 13.1 % 11.6-14.4 ragw=799) PLATELET COUNT (BEAKER) (test ckhq=358) 216 K/CU MM 150-450 MEAN PLATELET VOLUME (BEAKER) (test rtms=775) 10.3 fL 9.4-12.4 NUCLEATED RED BLOOD CELLS (BEAKER) (test 0 /100 WBC 0-0 gypg=493) NEUTROPHILS RELATIVE PERCENT (BEAKER) (test 76 % lzml=543) LYMPHOCYTES RELATIVE PERCENT (BEAKER) (test 17 % kpbw=475) MONOCYTES RELATIVE PERCENT (BEAKER) (test 5 % nyzd=556) EOSINOPHILS RELATIVE PERCENT (BEAKER) (test 2 % fguj=213) BASOPHILS RELATIVE PERCENT (BEAKER) (test 0 % oegn=078) NEUTROPHILS ABSOLUTE COUNT (BEAKER) (test 5.83 K/ L 1.78-5.38 memm=144) LYMPHOCYTES ABSOLUTE COUNT (BEAKER) (test 1.30 K/ L 1.32-3.57 hvqd=837) MONOCYTES ABSOLUTE COUNT (BEAKER) (test 0.35 K/ L 0.30-0.82 glxa=084) EOSINOPHILS ABSOLUTE COUNT (BEAKER) (test 0.17 K/ L 0.04-0.54 hrcq=889) BASOPHILS ABSOLUTE COUNT (BEAKER) (test 0.02 K/ L 0.01-0.08 phlz=671) IMMATURE GRANULOCYTES-RELATIVE PERCENT (BEAKER) 0 % 0-1 (test dsci=1725) RAPID DRUG SCREEN, [id number] 13:53:00 Test Item Value Reference Range Comments BARBITURATE URINE (BEAKER) (test rxla=509) Negative Negative BENZODIAZEPINE SCREEN URINE (BEAKER) (test Negative Negative urjy=269) COCAINE (METAB.) SCREEN (BEAKER) (test ltje=9229) Negative Negative METHADONE SCREEN (BEAKER) (test qhut=9715) Negative Negative OPIATE SCREEN URINE (BEAKER) (test ctdw=517) Negative Negative CANNABINOID SCREEN URINE (BEAKER) (test ahbt=014) Negative Negative AMPH/METHAMPH SCREEN (BEAKER) (test cftm=7164) Negative Negative PHENCYCLIDINE SCREEN URINE (BEAKER) (test pvyi=850) Negative Negative OXYCODONE SCREEN URINE (BEAKER) (test eici=6448) Negative Negative DRUG CUTOFF CONC.Cocaine 300 ng/mL Cannabinoid 50 ng/mL Benzodiazepine 200 ng/mLBarbiturate 200 ng/ mLPhencyclidine 25 ng/mLOpiate 300 ng/mLMethadone 300 ng/mLAmphetamine/ 1000 ng/mL MethamphetamineOxycodone 300 ng/mLThis assay provides an unconfirmed qualitative test result for the clinical management of patients in emergency situations. Chain of custody not maintained. Some apos-bme-znpmqzj medications, as well as adulterants, may cause inaccurate results. Clinical correlation should be applied. A more comprehensive drug screen or confirmation of a detected drug may be performed upon request.[id number] 13:27:00 Test Item Value Reference Range Comments ALPHA-1 ANTITRYPSIN (BEAKER) 169.80 mg/dL 90.00-200.00 Specimen slightly hemolyzed (test pssi=734) [id number] 12:53:00 Test Item Value Reference Range Comments HOMOCYSTEINE (BEAKER) (test xabj=427) 40.2 umol/L 5.1-15.4 HEPATIC FUNCTION [id number] 12:38:00 Test Item Value Reference Range Comments TOTAL PROTEIN (BEAKER) (test oppk=431) 7.5 gm/dL 6.0-8.3 ALBUMIN (BEAKER) (test vxrs=6323) 4.5 g/dL 3.5-5.0 BILIRUBIN TOTAL (BEAKER) (test frqt=965) 1.8 mg/dL 0.2-1.2 BILIRUBIN DIRECT (BEAKER) (test kvbc=189) 0.8 mg/dL 0.1-0.5 ALKALINE PHOSPHATASE (BEAKER) (test ogbh=503) 52 U/L 40-150 AST (SGOT) (BEAKER) (test hhzf=780) 12 U/L 5-34 ALT (SGPT) (BEAKER) (test ekno=552) 14 U/L 6-55 RAD, CHEST, 1 VIEW, NON [id number] 09:53:00Reason for exam:-> pneumothoraxShould this be performed at the bedside?->YesFINAL REPORT Chest one view INDICATION: Pneumothorax COMPARISON: None available IMPRESSION: There is right greater than left chest and bilateral lower neck subcutaneous emphysemawith pneumomediastinum and pneumopericardium. A small volume left pneumothorax is present with apical pleural separation of 1.8 cm. Minimal right pneumothorax is suspected. Upper abdominal lucency is present for which pneumoperitoneum or retroperitoneal gas cannot be excluded. Advise abdominal series or CT as clinically warranted. Findings discussed with ALEXIA Valero for this patient on 10T at 9:50 AM. The above findings have been described on outside imaging studies. The physician will be notified.There are low lung volumes with pulmonary vascular congestion and central and basilar lung opacitieswith right sided asymmetry, most likely atelectasis although pneumonitis or aspiration cannot be excluded. Heart size is within normal limits. No acute osseous abnormality is identified. Signed: Edvin Garcia [facility] Verified Date/Time: 04/23/2018 09:53:45 Reading Location: [facility] Radiology Reading Room BASIC METABOLIC [id number] 05:54:00 Test Item Value Reference Range Comments SODIUM (BEAKER) (test 139 meq/L 136-145 rlpj=773) POTASSIUM (BEAKER) (test 4.0 meq/L 3.5-5.1 jutv=615) CHLORIDE (BEAKER) (test 106 meq/L 98-107 jkzt=045) CO2 (BEAKER) (test 26 meq/L 22-29 ctun=041) BLOOD UREA NITROGEN 6 mg/dL 7-21 (BEAKER) (test jieq=794) CREATININE (BEAKER) (test 0.90 mg/dL 0.57-1.25 pudo=352) GLUCOSE RANDOM (BEAKER) 102 mg/dL 70-105 (test jyda=607) CALCIUM (BEAKER) (test 9.5 mg/dL 8.4-10.2 tajq=954) EGFR (BEAKER) (test 105 mL/min/1.73 sq m ESTIMATED GFR IS NOT gvhu=2730) ACCURATE CREATININE CLEARANCE IN PREDICTING GLOMERULAR FILTRATION RATE. ESTIMATED GFR IS NOT APPLICABLE FOR DIALYSIS PATIENTS. CBC W/PLT COUNT & AUTO [id number] 23:44:00 Test Item Value Reference Range Comments WHITE BLOOD CELL COUNT (BEAKER) (test eiba=098) 10.3 K/ L 3.5-10.5 RED BLOOD CELL COUNT (BEAKER) (test fplt=403) 4.94 M/ L 4.63-6.08 HEMOGLOBIN (BEAKER) (test bkqn=243) 13.9 GM/DL 13.7-17.5 HEMATOCRIT (BEAKER) (test qnaj=680) 40.9 % 40.1-51.0 MEAN CORPUSCULAR VOLUME (BEAKER) (test hsum=938) 82.8 fL 79.0-92.2 MEAN CORPUSCULAR HEMOGLOBIN (BEAKER) (test 28.1 pg 25.7-32.2 aevf=298) MEAN CORPUSCULAR HEMOGLOBIN CONC (BEAKER) (test 34.0 GM/DL 32.3-36.5 lewn=867) RED CELL DISTRIBUTION WIDTH (BEAKER) (test 13.2 % 11.6-14.4 pxrd=340) PLATELET COUNT (BEAKER) (test uxxz=769) 238 K/CU MM 150-450 MEAN PLATELET VOLUME (BEAKER) (test alvs=583) 10.6 fL 9.4-12.4 NUCLEATED RED BLOOD CELLS (BEAKER) (test 0 /100 WBC 0-0 elrl=253) NEUTROPHILS RELATIVE PERCENT (BEAKER) (test 75 % itma=828) LYMPHOCYTES RELATIVE PERCENT (BEAKER) (test 19 % laec=911) MONOCYTES RELATIVE PERCENT (BEAKER) (test 4 % pjds=888) EOSINOPHILS RELATIVE PERCENT (BEAKER) (test 2 % rrro=362) BASOPHILS RELATIVE PERCENT (BEAKER) (test 0 % frrl=512) NEUTROPHILS ABSOLUTE COUNT (BEAKER) (test 7.74 K/ L 1.78-5.38 iqln=717) LYMPHOCYTES ABSOLUTE COUNT (BEAKER) (test 1.95 K/ L 1.32-3.57 vzqc=685) MONOCYTES ABSOLUTE COUNT (BEAKER) (test 0.37 K/ L 0.30-0.82 cmcn=957) EOSINOPHILS ABSOLUTE COUNT (BEAKER) (test 0.16 K/ L 0.04-0.54 xxdp=439) BASOPHILS ABSOLUTE COUNT (BEAKER) (test 0.04 K/ L 0.01-0.08 hhcf=324) IMMATURE GRANULOCYTES-RELATIVE PERCENT (BEAKER) 1 % 0-1 (test cuoo=6840) POCT-GLUCOSE [id number] 21:08:00 Test Item Value Reference Range Comments POC-GLUCOSE METER (BEAKER) 133 mg/dL 70-110 TESTED AT [facility] [address] (test rksy=7809) [facility] [address]
--- OUTSIDE RECORDS SUMMARY | 2019-01-01 01:09 | XMS REPORT | Clinical Summary ---
:1995 Author Organization [facility] Address [address] [place] [address] Care Team Providers Name Role Phone Unavailable Primary Care Provider Unavailable Allergies No Known Allergies Medications Medication Sig Dispensed Refills Start Date End Date Status cyanocobalamin 1000 Take 1 30 tablet 0 04/26/2018 04/25/2018 Discontinued MCG tablet tablet (1,000 mcg total) by mouth daily for 30 days. folic acid (FOLVITE) Take 1 0 04/26/2018 04/25/2018 Discontinued 1 MG tablet tablet (1 mg total) by mouth daily for 30 days. cyanocobalamin 1000 Take 1 30 tablet 0 04/26/2018 05/26/2018 MCG tablet tablet (1,000 mcg total) by mouth daily for 30 days. folic acid (FOLVITE) Take 1 30 tablet 0 04/26/2018 05/26/2018 1 MG tablet tablet (1 mg total) by mouth daily for 30 days. Active Problems Problem Noted Date Pneumothorax 04/22/2018 Encounters Date Type Specialty Care Team Description 04/22/2018 - Hospital Encounter Cardiology Wilberto Swann MD Primary spontaneous pneumothorax; 04/25/[address] Subcutaneous emphysema, subsequent encounter MD Isauro Freeman Titilola R., MD after 12/31/2017 Family History Medical History Relation Name Comments Arthritis Maternal Grandmother Cancer Maternal Grandmother Diabetes Maternal Grandmother Hypertension Maternal Grandmother Liver disease Maternal Grandmother Arthritis Mother Hypertension Mother Relation Name Status Comments Maternal Grandmother Mother Social History Tobacco Use Types Packs/Day Years Used Date Never Smoker Smokeless Tobacco: Never Used Alcohol Use Drinks/Week oz/Week Comments No Sex Assigned at Date Recorded Not on file Job Start Date Occupation Industry Not on file Not on file Not on file Travel History Travel Start Travel End No recent travel history available. Last Filed Vital Signs Vital Sign Reading Time Taken Blood Pressure 134/74 04/25/2018 7:37 AM CDT Pulse 96 04/25/2018 11:32 AM CDT Temperature 36.9 C (98.4 F) 04/25/2018 7:37 AM CDT Respiratory Rate 18 04/25/2018 11:32 AM CDT Oxygen Saturation 98% 04/25/2018 11:32 AM CDT Inhaled Oxygen Concentration - - Weight 95 kg (209 lb 8 oz) 04/22/2018 7:50 PM CDT Height 180.3 cm (5' 11") 04/22/2018 7:50 PM CDT Body Mass Index 29.22 04/22/2018 7:50 PM CDT Plan of Treatment Not on file Procedures Procedure Name Priority Date/Time Associated Comments Diagnosis RHYTHM STRIP - SCAN 12/12/2018 10:41 AM CDT RHYTHM STRIP - SCAN 04/26/2018 1:11 PM CDT XR CHEST 1 VIEW Routine 04/25/2018 8:57 Results for this PORTABLE/BEDSIDE AM CDT procedure are in the results section. VITAMIN B12 AND FOLATE Routine 04/25/2018 1:37 Results for this AM CDT procedure are in the results section. VANCOMYCIN LEVEL, Timed 04/25/2018 1:37 Results for this TROUGH AM CDT procedure are in the results section. MISCELLANEOUS LAB Routine 04/24/2018 2:[address] ABDOMEN/PELVIS WITH Routine 04/24/2018 10:23 Results for this IV CONTRAST AM CDT procedure are in the results section. CT CHEST WITH IV Routine 04/24/2018 10:23 Results for this CONTRAST AM CDT procedure are in the results section. XR CHEST 1 VIEW Routine 04/24/2018 7:09 Results for this PORTABLE/BEDSIDE AM CDT procedure are in the results section. CBC W/PLT COUNT & AUTO Routine 04/24/2018 5:19 Results for this DIFFERENTIAL AM CDT procedure are in the results section. PROTHROMBIN TIME/INR Routine 04/24/2018 5:19 Results for this AM CDT procedure are in the results section. BASIC METABOLIC PANEL Routine 04/24/2018 5:19 Results for this (7) AM CDT procedure are in the results section. CBC W/PLT COUNT & AUTO Routine 04/24/2018 5:19 Results for this DIFFERENTIAL AM CDT procedure are in the results section. HEPATIC FUNCTION PANEL Routine 04/24/2018 5:19 Results for this AM CDT procedure are in the results section. RAPID DRUG SCREEN, Routine 04/23/2018 1:12 Results for this URINE PM CDT procedure are in the results section. HEPATIC FUNCTION PANEL Routine 04/23/2018 11:59 Results for this AM CDT procedure are in the results section. [id number]\\, Routine 04/23/2018 11:59 Results for this SERUM AM CDT procedure are in the results section. HOMOCYSTEINE Routine 04/23/2018 11:59 Results for this AM CDT procedure are in the results section. XR CHEST 1 VIEW STAT 04/23/2018 9:32 Results for this PORTABLE/BEDSIDE AM CDT procedure are in the results section. BASIC METABOLIC PANEL Routine 04/23/2018 4:47 Results for this (7) AM CDT procedure are in the results section. CBC W/PLT COUNT & AUTO Routine 04/22/2018 11:36 Results for this DIFFERENTIAL PM CDT procedure are in the results section. CBC W/PLT COUNT & AUTO Routine 04/22/2018 11:36 Results for this DIFFERENTIAL PM CDT procedure are in the results section. POCT-GLUCOSE METER Routine 04/22/2018 9:03 Results for this PM CDT procedure are in the results section. after 12/31/2017 Results RHYTHM STRIP - SCAN (12/12/2018 10:41 AM CDT)Only the most recent of2 resultswithin the time period is included. Narrative Performed At XR chest 1 view portable / bedside (04/25/2018 8:57 AM CDT)Only the most recent of3 resultswithin the time period is included. Specimen Narrative Performed At FINAL REPORT [facility] Chest one view INDICATION: Pneumothorax COMPARISON: 04/24/2018 IMPRESSION: Two frontal images of [...] The bones appear intact. Signed: Edvin Garcia MD Report Verified Date/Time:04/25/2018 09:24:12 Reading Location: [facility] Radiology Reading Room Procedure Note Interface, External Ris In - 04/25/2018 9:46 AM CDT FINAL REPORT Chest one view INDICATION: Pneumothorax COMPARISON: 04/24/2018 IMPRESSION: Two frontal images of [...] The bones appear intact. Signed: Edvin Garcia MD Report Verified Date/Time: 04/25/2018 09:24:12 Reading Location: [facility] Radiology Reading Room Performing Organization Address City/[facility] Phone Number [facility] Vitamin B12 and Folate (04/25/2018 1:37 AM CDT) Vitamin B12 <146 (L) 213 - 816 pg/mL [facility] Folate 2.4 (L) >=7.0 ng/mL [facility] Specimen Blood Performing Organization Address City/[facility]/Zipcode Phone Number [address] [address] [phone] CENTER Vancomycin level, trough (04/25/2018 1:37 AM CDT) Vancomycin Tr 8.6 (L) 10.0 - 20.0 ug/mL [facility] Specimen Blood Performing Organization Address [facility] Phone Number [address] [address] CENTER urine homocysteine (04/24/2018 2:41 PM CDT) Scan Result [facility] Specimen Urine Narrative Performed At Performing Organization Address City/State/Zipcode Phone Number [facility] [address] [place], [place] CT abdomen/pelvis with IV contrast (04/24/2018 10:23 AM CDT) Specimen Narrative Performed At FINAL REPORT [facility] TECHNIQUE: CT of the chest, abdomen, and pelvis WITH intravenous contrast and WITHOUT oral contrast. Dose modulation, iterative [...] lung base. No consolidation or suspicious pulmonary nodule. PLEURA: Small basilar predominant hydropneumothorax on the left. Trace right pleural effusion. HEART AND MEDIASTINUM: The visualized thyroid gland is normal. No significant mediastinal, hilar, or axillary lymphadenopathy. The heart and pericardium are within normal limits. Pneumomediastinum. HEPATOBILIARY: No focal hepatic lesions. Gallbladder is unremarkable. No biliary ductal dilatation. SPLEEN: No splenomegaly. PANCREAS: No focal masses or ductal dilatation. ADRENALS: No adrenal nodules. KIDNEYS/URETERS: No hydronephrosis, stones, or solid mass lesions. PELVIC ORGANS/BLADDER: The bladder is underdistended, limiting its evaluation. Prostate and seminal vesicles are grossly unremarkable. PERITONEUM/RETROPERITONEUM: Moderate amount of free air in the retroperitoneum, particularly on the right. Small-moderate amount of intraperitoneal air, also concentrated on the right. LYMPH NODES: No lymphadenopathy. VESSELS: Unremarkable. GI TRACT: No distention or wall thickening. Normal appendix. BONES AND SOFT TISSUES: Bones are unremarkable. Air in the soft tissues of the lower neck right chest and abdominal wall, right groin, and visualized right thigh. IMPRESSION: Small left hydropneumothorax. Pneumomediastinum. Pneumoperitoneum and pneumoretroperitoneum, predominantly on the right. Subcutaneous emphysema in the lower neck and along the right side of the chest, abdomen, and visualized right thigh. Signed: Shemar Ramsey MD Report Verified Date/Time:04/24/2018 12:29:48 Reading Location: [facility] B1 C013Y CT Body Reading Room Procedure Note Interface, External Ris In - 04/24/2018 12:31 PM CDT FINAL REPORT TECHNIQUE: CT of the chest, abdomen, and pelvis WITH intravenous contrast and WITHOUT oral contrast. Dose modulation, iterative [...] lung base. No consolidation or suspicious pulmonary nodule. PLEURA: Small basilar predominant hydropneumothorax on the left. Trace right pleural effusion. HEART AND MEDIASTINUM: The visualized thyroid gland is normal. No significant mediastinal, hilar, or axillary lymphadenopathy. The heart and pericardium are within normal limits. Pneumomediastinum. HEPATOBILIARY: No focal hepatic lesions. Gallbladder is unremarkable. No biliary ductal dilatation. SPLEEN: No splenomegaly. PANCREAS: No focal masses or ductal dilatation. ADRENALS: No adrenal nodules. KIDNEYS/URETERS: No hydronephrosis, stones, or solid mass lesions. PELVIC ORGANS/BLADDER: The bladder is underdistended, limiting its evaluation. Prostate and seminal vesicles are grossly unremarkable. PERITONEUM/RETROPERITONEUM: Moderate amount of free air in the retroperitoneum, particularly on the right. Small-moderate amount of intraperitoneal air, also concentrated on the right. LYMPH NODES: No lymphadenopathy. VESSELS: Unremarkable. GI TRACT: No distention or wall thickening. Normal appendix. BONES AND SOFT TISSUES: Bones are unremarkable. Air in the soft tissues of the lower neck right chest and abdominal wall, right groin, and visualized right thigh. IMPRESSION: Small left hydropneumothorax. Pneumomediastinum. Pneumoperitoneum and pneumoretroperitoneum, predominantly on the right. Subcutaneous emphysema in the lower neck and along the right side of the chest, abdomen, and visualized right thigh. Signed: Shemar Ramsey MD Report Verified Date/Time: 04/24/2018 12:29:48 Reading Location: [facility] B1 C013Y CT Body Reading Room Performing Organization Address City/State/Zipcode Phone Number Be Spotted CT chest with IV contrast (04/24/2018 10:23 AM CDT) Specimen Narrative Performed At FINAL REPORT Be Spotted TECHNIQUE: CT of the chest, abdomen, and pelvis WITH intravenous contrast and WITHOUT oral contrast. Dose modulation, iterative [...] lung base. No consolidation or suspicious pulmonary nodule. PLEURA: Small basilar predominant hydropneumothorax on the left. Trace right pleural effusion. HEART AND MEDIASTINUM: The visualized thyroid gland is normal. No significant mediastinal, hilar, or axillary lymphadenopathy. The heart and pericardium are within normal limits. Pneumomediastinum. HEPATOBILIARY: No focal hepatic lesions. Gallbladder is unremarkable. No biliary ductal dilatation. SPLEEN: No splenomegaly. PANCREAS: No focal masses or ductal dilatation. ADRENALS: No adrenal nodules. KIDNEYS/URETERS: No hydronephrosis, stones, or solid mass lesions. PELVIC ORGANS/BLADDER: The bladder is underdistended, limiting its evaluation. Prostate and seminal vesicles are grossly unremarkable. PERITONEUM/RETROPERITONEUM: Moderate amount of free air in the retroperitoneum, particularly on the right. Small-moderate amount of intraperitoneal air, also concentrated on the right. LYMPH NODES: No lymphadenopathy. VESSELS: Unremarkable. GI TRACT: No distention or wall thickening. Normal appendix. BONES AND SOFT TISSUES: Bones are unremarkable. Air in the soft tissues of the lower neck right chest and abdominal wall, right groin, and visualized right thigh. IMPRESSION: Small left hydropneumothorax. Pneumomediastinum. Pneumoperitoneum and pneumoretroperitoneum, predominantly on the right. Subcutaneous emphysema in the lower neck and along the right side of the chest, abdomen, and visualized right thigh. Signed: Shemar Ramsey MD Report Verified Date/Time:04/24/2018 12:29:48 Reading Location: [facility] B1 C013Y CT Body Reading Room Procedure Note Interface, External Ris In - 04/24/2018 12:31 PM CDT FINAL REPORT TECHNIQUE: CT of the chest, abdomen, and pelvis WITH intravenous contrast and WITHOUT oral contrast. Dose modulation, iterative [...] lung base. No consolidation or suspicious pulmonary nodule. PLEURA: Small basilar predominant hydropneumothorax on the left. Trace right pleural effusion. HEART AND MEDIASTINUM: The visualized thyroid gland is normal. No significant mediastinal, hilar, or axillary lymphadenopathy. The heart and pericardium are within normal limits. Pneumomediastinum. HEPATOBILIARY: No focal hepatic lesions. Gallbladder is unremarkable. No biliary ductal dilatation. SPLEEN: No splenomegaly. PANCREAS: No focal masses or ductal dilatation. ADRENALS: No adrenal nodules. KIDNEYS/URETERS: No hydronephrosis, stones, or solid mass lesions. PELVIC ORGANS/BLADDER: The bladder is underdistended, limiting its evaluation. Prostate and seminal vesicles are grossly unremarkable. PERITONEUM/RETROPERITONEUM: Moderate amount of free air in the retroperitoneum, particularly on the right. Small-moderate amount of intraperitoneal air, also concentrated on the right. LYMPH NODES: No lymphadenopathy. VESSELS: Unremarkable. GI TRACT: No distention or wall thickening. Normal appendix. BONES AND SOFT TISSUES: Bones are unremarkable. Air in the soft tissues of the lower neck right chest and abdominal wall, right groin, and visualized right thigh. IMPRESSION: Small left hydropneumothorax. Pneumomediastinum. Pneumoperitoneum and pneumoretroperitoneum, predominantly on the right. Subcutaneous emphysema in the lower neck and along the right side of the chest, abdomen, and visualized right thigh. Signed: Shemar Ramsey MD Report Verified Date/Time: 04/24/2018 12:29:48 Reading Location: [facility] B1 C013Y CT Body Reading Room Performing Organization Address City/State/Zipcode Phone Number [facility] CBC with platelet count + automated diff (04/24/2018 5:19 AM CDT)Only the most recent of2 resultswithin the time period is included. WBC 7.7 3.5 - 10.5 K/L [facility] RBC 5.27 4.63 - 6.08 M/L [facility] Hemoglobin 14.5 13.7 - 17.5 GM/DL [facility] Hematocrit 43.6 40.1 - 51.0 % [facility] MCV 82.7 79.0 - 92.2 fL [facility] MCH 27.5 25.7 - 32.2 pg [facility] MCHC 33.3 32.3 - 36.5 GM/DL [facility] RDW 13.1 11.6 - 14.4 % [facility] Platelets 216 150 - 450 K/CU MM [facility] MPV 10.3 9.4 - 12.4 fL [facility] nRBC 0 0 - 0 /100 WBC [facility] % Neutros 76 % [facility] % Lymphs 17 % [facility] % Monos 5 % [facility] % Eos 2 % [facility] % Baso 0 % [facility] # Neutros 5.83 (H) 1.78 - 5.38 K/L [facility] # Lymphs 1.30 (L) 1.32 - 3.57 K/L [facility] # Monos 0.35 0.30 - 0.82 K/L [facility] # Eos 0.17 0.04 - 0.54 K/L [facility] # Baso 0.02 0.01 - 0.08 K/L [facility] Immature Granulocytes-Relative 0 0 - 1 % [facility] Specimen Blood Performing Organization Address City/[facility]/Zipcode Phone Number [address] [address] [place] Prothrombin time/INR (04/24/2018 5:19 AM CDT) Protime 15.9 (H) 11.7 - 14.7 seconds [facility] INR 1.3 <=5.9 [facility] Specimen Blood Narrative Performed At [facility] RECOMMENDED COUMADIN/WARFARIN INR THERAPY RANGES STANDARD DOSE: 2.0 - 3.0 Includes: PROPHYLAXIS for venous thrombosis, systemic embolization; TREATMENT for venous thrombosis and/or pulmonary embolus. HIGH RISK: Target INR is 2.5-3.5 for patients with mechanical heart valves. Performing Organization Address City/State/[facility] Phone Number [address] [address] [place] Hepatic function panel (04/24/2018 5:19 AM CDT)Only the most recent of2 resultswithin the time period is included. Protein, Total 7.0 6.0 - 8.3 gm/dL [facility] Albumin 4.1 3.5 - 5.0 g/dL [facility] Total Bilirubin 1.7 (H) 0.2 - 1.2 mg/dL [facility] Bilirubin, Direct 0.6 (H) 0.1 - 0.5 mg/dL [facility] Alkaline Phosphatase 46 40 - 150 U/L [facility] AST 12 5 - 34 U/L [facility] ALT 15 6 - 55 U/L [facility] Specimen Blood Performing Organization Address [facility]/Zipcode Phone Number [facility] [address] [place] [address] [place] Basic Metabolic Panel (04/24/2018 5:19 AM CDT)Only the most recent of2 resultswithin the time period is included. Sodium 137 136 - 145 meq/L [facility] Potassium 4.1 3.5 - 5.1 meq/L [facility] Chloride 105 98 - 107 meq/L [facility] CO2 25 22 - 29 meq/L [facility] BUN 8 7 - 21 mg/dL [facility] Creatinine 0.95 0.57 - 1.25 mg/dL [facility] Glucose 89 70 - 105 mg/dL [facility] Calcium 9.7 8.4 - 10.2 mg/dL [facility] EGFR 98Comment: ESTIMATED GFR IS mL/min/1.[address] [facility] NOT ACCURATE [facility] CLEARANCE IN PREDICTING GLOMERULAR FILTRATION RATE. ESTIMATED GFR IS NOT APPLICABLE FOR DIALYSIS PATIENTS. Specimen Blood Performing Organization Address City/[facility] Phone Number [facility] [address] [place] [address] [place] Rapid drug screen, urine (04/23/2018 1:12 PM CDT) Barbiturate Screen Negative Negative [facility] Benzodiazepine Screen Negative Negative [facility] Cocaine (Metab.) Screen Negative Negative [facility] Methadone Screen Negative Negative [facility] Opiate Screen Negative Negative [facility] Cannabinoid Screen Negative Negative [facility] Amph/Methamph Screen Negative Negative [facility] Phencyclidine Screen Negative Negative [facility] Oxycodone Screen Negative Negative [facility] Specimen Urine Narrative Performed At [facility] DRUGCUTOFF CONC. Cocaine 300 ng/mL Cnrkfdfodwh74 ng/mL Woheynclqttinb871 ng/mL Barbiturate 200 ng/mL Dvpsvpjnlpdxr21 ng/mL Qpuump007 ng/mL Methadone 300 ng/mL Amphetamine/ 1000 ng/mL Methamphetamine Oxycodone 300 ng/mL This assay provides an unconfirmed qualitative test result for the clinical management of patients in emergency situations. Chain of custody not maintained. Some [id number] medications, as well as adulterants, may cause inaccurate results. Clinical correlation should be applied. A more comprehensive drug screen or confirmation of a detected drug may be performed upon request. Performing Organization Address City/[facility] Phone Number [address] [address] CENTER [id number] (04/23/2018 11:59 AM CDT) A-1 Antitrypsin 169.80Comment: Specimen 90.00 - 200.00 mg/dL [facility] slightly hemolyzed [facility] Specimen Blood Performing Organization Address [facility] Phone Number [address] [address] [phone] CENTER Homocysteine (04/23/2018 11:59 AM CDT) Homocysteine 40.2 (H) 5.1 - 15.4 umol/L [facility] Specimen Blood Performing Organization Address [facility] Phone Number [address] [phone] CENTER POC-Glucose meter (04/22/2018 9:03 PM CDT) POC-Glucose Meter 133 (H)Comment: TESTED AT 70 - 110 mg/dL [facility] [address] [facility] [address] Specimen Blood Performing Organization Address City/State/Zipcode Phone Number [facility] [address] [place] [address] CENTER after 12/31/2017 Insurance Payer Benefit Plan / Subscriber ID Type Phone Address Group MEDICAID - MEDICAID [facility] [employer] xxxxxxxxx Medicaid Contracted MGD CARE PLAN Advance Directives For more information, please contact:[facility] [place] [address] [phone] Code Status Date Activated Date Inactivated Comments Full Code 04/22/2018 10:44 PM 04/25/2018 4:40 PM This code status was determined by: Patient
--- OUTSIDE RECORDS SUMMARY | 2019-01-01 01:10 | XMS REPORT ---
:1995 Author Organization [employer] Care Team Providers Name Role Phone Neha Herringy Provider Role Unavailable Allergies, Adverse Reactions, Alerts Substance Reaction Event Type N.K.D.A. Info Not Available Non Drug Allergy Problems Problem Type Condition Code Onset Dates Condition Status Problem Aspergers' syndrome F84.5 Active Problem Memory deficit R41.3 Active Assessment Pain in left hip M25.552 Active Assessment Aspergers' syndrome F84.5 Active Assessment Pain in right hip M25.551 Active Medications Medication Code Code Instructions Start End Status Dosage System Date Date Meloxicam [facility] [id number] 15 MG Orally Apr 30, Aug 28, Active 1 tablet Once a day 2017 2018 Gabapentin [place] [id number] 300 MG Orally November Active 1 capsule Twice a day 2017 before bedtime Benadryl [facility] [id number] 25 MG Orally Active 1 tablet as Allergy every 8 hrs needed walking boot [facility] [id number] short walking December 12, Active as directed boot for ankle 2018 foot fx while up Results No Known Results Summary Purpose eClinicalWorks Submission
--- NOTE | 2019-01-01 01:31 | ER ---
Nurse's Notes [facility] Name: Wicho Adams Age: 23 yrs Sex: Male : 1995 Arrival Date: 01/01/2019 Time: 01:10 Bed 24 Private MD: Diagnosis: Periapical abscess without sinus Presentation: 01/01 01:23 Presenting complaint: Patient states: tooth pain for 5 hours [employer] to right top back ak1 tooth. pt stated he has an appointment Sunday for the dentist. pt had 500mg tylenol at 2200 and 400mg Ibuprofen at 0020. Transition of care: patient was not received from another setting of care. Onset of symptoms is unknown. Risk Assessment: Do you want to hurt yourself or someone else? Patient reports no desire to harm self or others. Initial Sepsis Screen: Does the patient have a suspected source of infection?. Care prior to arrival: None. 01:23 Method Of Arrival: Ambulatory ak1 01:23 Acuity: TAN 4 ak1 01:27 Initial Sepsis Screen: Does the patient meet any 2 criteria? No. Patient's initial ak1 sepsis screen is negative. Triage Assessment: 01:25 General: Appears in no apparent distress. Behavior is cooperative, appropriate for age. ak1 Pain: Complains of pain in upper right first molar. 01:27 EENT: Reports pain right top back tooth for 5 hours [employer]. Neuro: No deficits noted. ak1 Cardiovascular: No deficits noted. Respiratory: No deficits noted. GI: No signs and/or symptoms were reported involving the gastrointestinal system. : No signs and/or symptoms were reported regarding the genitourinary system. Derm: No signs and/or symptoms reported regarding the dermatologic system. Musculoskeletal: No signs and/or symptoms reported regarding the musculoskeletal system. Historical: - Allergies: 01:25 No Known Allergies; ak1 - Home Meds: 01:25 meloxicam oral oral [Active]; ak1 - PMHx: 01:25 joint issues; asperger syndrome; ak1 - PSHx: 01:25 None; ak1 - Immunization history:: Adult Immunizations up to date. - Social history:: Smoking status: Patient/guardian denies using tobacco. - Ebola Screening: : No symptoms or risks identified at this time. Screenin:27 Abuse screen: Denies threats or abuse. Denies injuries from another. Nutritional ak1 screening: No deficits noted. Tuberculosis screening: No symptoms or risk factors identified. Fall Risk None identified. Assessment: 01:28 Reassessment: Patient appears in no apparent distress at this time. No changes from ak1 previously documented assessment. Patient is alert, oriented x 3, equal unlabored respirations, skin warm/dry/pink. see triage assessment. 01:39 EENT: Reports pain in upper right first molar. mg2 Vital Signs: 01:25 BP 132 / 87; Pulse 65; Resp 20; Temp 98.0; Pulse Ox 99% on R/A; Weight 90.72 kg (R); ak1 Height 5 ft. 11 in. (180.34 cm) (R); Pain 8/10; 01:25 Body Mass Index 27.89 (90.72 kg, 180.34 cm) ak1 ED Course: 01:10 Patient arrived in ED. es 01:16 En Muñoz PA is PHCP. jr8 01:16 Carlos Negrete MD is Attending Physician. jr8 01:24 Triage completed. ak1 01:25 Arm band placed on Patient placed in an exam room, on a stretcher, on pulse oximetry, ak1 Patient notified of wait time. 01:26 Patient has correct armband on for positive identification. Bed in low position. Call ak1 light in reach. Side rails up X 1. Pulse ox on. NIBP on. 01:31 Junior Landrum RN is Primary Nurse. mg2 01:39 No provider procedures requiring assistance completed. Patient did not have IV access mg2 during this emergency room visit. Administered Medications: 01:39 Drug: TORadol - Ketorolac 15 mg Route: IM; Site: left gluteus; mg2 01:39 Follow up: Response: No adverse reaction; Medication administered at discharge. mg2 Outcome: :31 Discharge ordered by . jr8 01:40 Discharged to home ambulatory. mg2 01:40 Condition: stable 01:40 Discharge instructions given to patient, Instructed on discharge instructions, follow up and referral plans. medication usage, Demonstrated understanding of instructions, follow-up care, medications, Prescriptions given X 2. 01:40 Patient left the ED. mg2 Signatures: Marita Al es En Muñoz PA PA jr8 Andreea Hall RN RN ak1 Junior Landrum, RN RN mg2
--- NOTE | 2019-01-01 01:31 | EDPHYS ---
Physician Documentation [facility] Name: Wicho Adams Age: 23 yrs Sex: Male : 1995 Arrival Date: 01/01/2019 Time: 01:10 Bed 24 Private MD: ED Physician Carlos Negrete HPI: 01/01 01:28 This 23 yrs old Male presents to ER via Ambulatory with complaints of jr8 Toothache. 01:28 Onset: The symptoms/episode began/occurred acutely, today. Duration: The symptoms are jr8 continuous. Modifying factors: The symptoms are alleviated by nothing, the symptoms are aggravated by air, chewing, talking. Associated signs and symptoms: The patient has no apparent associated signs or symptoms. Severity of symptoms: At their worst the symptoms were mild, in the emergency department the symptoms are unchanged. The patient has experienced a previous episode. The patient has not recently seen a physician. Historical: - Allergies: 01:25 No Known Allergies; ak1 - Home Meds: 01:25 meloxicam oral oral [Active]; ak1 - PMHx: 01:25 joint issues; asperger syndrome; ak1 - PSHx: 01:25 None; ak1 - Immunization history:: Adult Immunizations up to date. - Social history:: Smoking status: Patient/guardian denies using tobacco. - Ebola Screening: : No symptoms or risks identified at this time. ROS: 01:28 Eyes: Negative for injury, pain, redness, and discharge, Neck: Negative for injury, jr8 pain, and swelling, Cardiovascular: Negative for chest pain, palpitations, and edema, Respiratory: Negative for shortness of breath, cough, wheezing, and pleuritic chest pain, Abdomen/GI: Negative for abdominal pain, nausea, vomiting, diarrhea, and constipation, Back: Negative for injury and pain, Skin: Negative for injury, rash, and discoloration, Neuro: Negative for headache, weakness, numbness, tingling, and seizure. 01:28 ENT: Positive for dental pain, Gum pain Exam: :28 Eyes: Pupils equal round and reactive to light, extra-ocular motions intact. Lids and jr8 lashes normal. Conjunctiva and sclera are non-icteric and not injected. Cornea within normal limits. Periorbital areas with no swelling, redness, or edema. Neck: Trachea midline, no thyromegaly or masses palpated, and no cervical lymphadenopathy. Supple, full range of motion without nuchal rigidity, or vertebral point tenderness. No Meningismus. Cardiovascular: Regular rate and rhythm with a normal S1 and S2. No gallops, murmurs, or rubs. Normal PMI, no JVD. No pulse deficits. Respiratory: Lungs have equal breath sounds bilaterally, clear to auscultation and percussion. No rales, rhonchi or wheezes noted. No increased work of breathing, no retractions or nasal flaring. Abdomen/GI: Soft, non-tender, with normal bowel sounds. No distension or tympany. No guarding or rebound. No evidence of tenderness throughout. Back: No spinal tenderness. No costovertebral tenderness. Full range of motion. Skin: Warm, dry with normal turgor. Normal color with no rashes, no lesions, and no evidence of cellulitis. MS/ Extremity: Pulses equal, no cyanosis. Neurovascular intact. Full, normal range of motion. Neuro: Awake and alert, GCS 15, oriented to person, place, time, and situation. Cranial nerves II-XII grossly intact. Motor strength 5/5 in all extremities. Sensory grossly intact. Cerebellar exam normal. Normal gait. 01:28 ENT: Exam is negative for earache, ear discharge, TM abnormalities, nasal discharge, pharyngitis, exudate, Mouth: Lips: moist, Oral mucosa: pink and intact, moist, Gums: pink, reddened, on the right buccal mucosa, Tongue: is moist, Posterior pharynx: Airway: patent, Tonsils: are normal in appearance, Uvula: midline, non-edematous, no erythema, swelling, is not appreciated, erythema, is not appreciated, exudate, is not appreciated, Dental exam: pain, that is moderate, specifically in the upper right second bicuspid (#4). Vital Signs: 01:25 BP 132 / 87; Pulse 65; Resp 20; Temp 98.0; Pulse Ox 99% on R/A; Weight 90.72 kg (R); ak1 Height 5 ft. 11 in. (180.34 cm) (R); Pain 8/10; 01:25 Body Mass Index 27.89 (90.72 kg, 180.34 cm) ak1 MDM: 01:16 Patient medically screened. jr8 01:30 Data reviewed: vital signs, nurses notes, and as a result, I will discharge patient. jr8 Data interpreted: Pulse oximetry: on room air is 99 %. Interpretation: normal. Counseling: I had a detailed discussion with the patient and/or guardian regarding: the historical points, exam findings, and any diagnostic results supporting the discharge/admit diagnosis, the need for outpatient follow up, a dentist, to return to the emergency department if symptoms worsen or persist or if there are any questions or concerns that arise at home. Administered Medications: 01:39 Drug: TORadol - Ketorolac 15 mg Route: IM; Site: left gluteus; mg2 01:39 Follow up: Response: No adverse reaction; Medication administered at discharge. mg2 Disposition: 06:41 Co-signature as Attending Physician, Carlos Negrete MD I agree with the assessment and evelina plan of care. Disposition: 01/01/19 01:31 Discharged to Home. Impression: Periapical abscess without sinus. - Condition is Stable. - Discharge Instructions: Dental Abscess, Dental Pain. - Prescriptions for Augmentin 875- 125 mg Oral Tablet - take 1 tablet by ORAL route every 12 hours for 10 days; 20 tablet. Tylenol- Codeine #3 300-30 mg Oral Tablet - take 2 tablets by ORAL route every 6 hours As needed; 12 tablet. - Medication Reconciliation Form, Thank You Letter, Antibiotic Education, Prescription Opioid Use form. - Follow up: Private Physician; When: Tomorrow; Reason: Recheck today's complaints, Continuance of care, Re-evaluation by your physician. - Problem is new. - Symptoms have improved. Signatures: Carlos Negrete MD MD cha Roszak, Josh, PA PA jr8 Andreea Hall RN RN ak1 Junior Landrum RN RN mg2 Corrections: (The following items were deleted from the chart) 01:40 01:31 01/01/2019 01:31 Discharged to Home. Impression: Periapical abscess without mg2 sinus. Condition is Stable. Forms are Medication Reconciliation Form, Thank You Letter, Antibiotic Education, Prescription Opioid Use. Follow up: Private Physician; When: Tomorrow; Reason: Recheck today's complaints, Continuance of care, Re-evaluation by your physician. Problem is new. Symptoms have improved. jr8
[2019-01-01] MEDS ORDERED: KETOROLAC 30 MG/ML INJ ONE (01:46)
== END 2019-01-01 01:40 | disposition home or self-care (01) ==
LOC: ER 01:05
DX: K04.7 Periapical abscess without sinus (principal)
CPT/HCPCS: 96372; 99283

== ENCOUNTER 2019-01-28 06:24 | Emergency (ER) | payer OTHER ==
--- OUTSIDE RECORDS SUMMARY | 2019-01-28 06:28 | XMS REPORT ---
:1995 [facility] Address [address] [place] [address] Care Team Providers Name Role Phone ELSI [...] ID: 1 VIEW, NON 09:24:00 exam:->pneumothoraxShould this [id number] Chest one view DEPT be performed at [...] The bones appear intact. Signed: Edvin Garcia [facility] Verified Date/Time: 04/25/2018 09:24:12 Reading Location: [facility] Radiology Reading Room MIN B12 AND FOLATE 2018-04-25 02:48:00 Test Item Value Reference Range Comments VITAMIN B12 (BEAKER) (test myuo=972) < pg/mL 213-816 FOLATE (BEAKER) (test xqsi=690) 2.4 ng/mL >=7.0 VANCOMYCIN LEVEL, [id number] 02:10:00 Test Item Value Reference Range Comments VANCOMYCIN TROUGH (DENNIS) (test gxkq=494) 8.6 ug/mL 10.0-20.0 CT, CHEST, WITH [id number] 12:29:00Left pneumothorax and pneumediastinum with pneumoperitoneum and [...] 04/24/2018 12:29:48 Reading Location: [facility] B1 C013Y CT Body Reading Room CT, [id number] 12:29:00Left pneumothorax and pneumediastinum with pneumoperitoneum and [...] 04/24/2018 12:29:48 Reading Location: [facility] B1 C013Y CT Body Reading Room RAD, CHEST, 1 VIEW, NON [id number] 07:33:00Reason for exam:->spontaneous PTX, pneumomediastinumShould this be [...] MDReport Verified Date/Time: 04/24/2018 07:33:30 Reading Location: [facility] Radiology Reading Room HEPATIC FUNCTION [id number] 05:47:00 Test Item Value Reference Range Comments TOTAL PROTEIN (BEAKER) (test karv=875) 7.0 gm/dL 6.0-8.3 ALBUMIN (BEAKER) (test vbfd=5539) 4.1 g/dL 3.5-5.0 BILIRUBIN TOTAL (BEAKER) (test odej=015) 1.7 mg/dL 0.2-1.2 BILIRUBIN DIRECT (BEAKER) (test yzbn=691) 0.6 mg/dL 0.1-0.5 ALKALINE PHOSPHATASE (BEAKER) (test bqwq=965) 46 U/L 40-150 AST (SGOT) (BEAKER) (test fxxs=179) 12 U/L 5-34 ALT (SGPT) (BEAKER) (test naex=558) 15 U/L 6-55 BASIC METABOLIC [id number] 05:47:00 Test Item Value Reference Range Comments SODIUM (BEAKER) (test 137 meq/L 136-145 hhcv=862) POTASSIUM (BEAKER) (test 4.1 meq/L 3.5-5.1 rvei=138) CHLORIDE (BEAKER) (test 105 meq/L 98-107 xjcn=070) CO2 (BEAKER) (test 25 meq/L 22-29 kotl=233) BLOOD UREA NITROGEN 8 mg/dL 7-21 (BEAKER) (test azqu=060) CREATININE (BEAKER) (test 0.95 mg/dL 0.57-1.25 xuhl=972) GLUCOSE RANDOM (BEAKER) 89 mg/dL 70-105 (test dvdo=555) CALCIUM (BEAKER) (test 9.7 mg/dL 8.4-10.2 ydmb=578) EGFR (BEAKER) (test 98 mL/min/1.73 sq m ESTIMATED GFR IS NOT hfvz=6309) ACCURATE CREATININE CLEARANCE IN PREDICTING GLOMERULAR FILTRATION RATE. ESTIMATED GFR IS NOT APPLICABLE FOR DIALYSIS PATIENTS. PROTHROMBIN TIME/[id number] 05:42:00 Test Item Value Reference Range Comments PROTIME (BEAKER) (test ohyb=973) 15.9 seconds 11.7-14.7 INR (BEAKER) (test dryt=150) 1.3 <=5.9 RECOMMENDED COUMADIN/WARFARIN INR THERAPY RANGESSTANDARD DOSE: 2.0 - 3.0 Includes: PROPHYLAXIS forvenous thrombosis, systemic embolization; TREATMENT for venous thrombosis and/or pulmonary embolus.HIGH RISK: Target INR is 2.5-3.5 for patients with mechanical heart valves.CBC W/PLT COUNT & AUTO [id number] 05:28:00 Test Item Value Reference Range Comments WHITE BLOOD CELL COUNT (BEAKER) (test jlmo=690) 7.7 K/ L 3.5-10.5 RED BLOOD CELL COUNT (BEAKER) (test ixma=190) 5.27 M/ L 4.63-6.08 HEMOGLOBIN (BEAKER) (test kyrq=856) 14.5 GM/DL 13.7-17.5 HEMATOCRIT (BEAKER) (test bktm=513) 43.6 % 40.1-51.0 MEAN CORPUSCULAR VOLUME (BEAKER) (test okmc=182) 82.7 fL 79.0-92.2 MEAN CORPUSCULAR HEMOGLOBIN (BEAKER) (test 27.5 pg 25.7-32.2 kgqv=590) MEAN CORPUSCULAR HEMOGLOBIN CONC (BEAKER) (test 33.3 GM/DL 32.3-36.5 ftkq=167) RED CELL DISTRIBUTION WIDTH (BEAKER) (test 13.1 % 11.6-14.4 ykox=084) PLATELET COUNT (BEAKER) (test tmpm=529) 216 K/CU MM 150-450 MEAN PLATELET VOLUME (BEAKER) (test bxmo=790) 10.3 fL 9.4-12.4 NUCLEATED RED BLOOD CELLS (BEAKER) (test 0 /100 WBC 0-0 jryn=421) NEUTROPHILS RELATIVE PERCENT (BEAKER) (test 76 % opoh=448) LYMPHOCYTES RELATIVE PERCENT (BEAKER) (test 17 % ylyj=781) MONOCYTES RELATIVE PERCENT (BEAKER) (test 5 % egxa=050) EOSINOPHILS RELATIVE PERCENT (BEAKER) (test 2 % yvsf=919) BASOPHILS RELATIVE PERCENT (BEAKER) (test 0 % cmgc=879) NEUTROPHILS ABSOLUTE COUNT (BEAKER) (test 5.83 K/ L 1.78-5.38 acts=121) LYMPHOCYTES ABSOLUTE COUNT (BEAKER) (test 1.30 K/ L 1.32-3.57 qhoj=772) MONOCYTES ABSOLUTE COUNT (BEAKER) (test 0.35 K/ L 0.30-0.82 ihdn=420) EOSINOPHILS ABSOLUTE COUNT (BEAKER) (test 0.17 K/ L 0.04-0.54 zluy=806) BASOPHILS ABSOLUTE COUNT (BEAKER) (test 0.02 K/ L 0.01-0.08 zxtp=052) IMMATURE GRANULOCYTES-RELATIVE PERCENT (BEAKER) 0 % 0-1 (test oxzk=2313) RAPID DRUG SCREEN, [id number] 13:53:00 Test Item Value Reference Range Comments BARBITURATE URINE (BEAKER) (test solz=963) Negative Negative BENZODIAZEPINE SCREEN URINE (BEAKER) (test Negative Negative atif=592) COCAINE (METAB.) SCREEN (BEAKER) (test nokp=6296) Negative Negative METHADONE SCREEN (BEAKER) (test nvvp=5663) Negative Negative OPIATE SCREEN URINE (BEAKER) (test gumj=033) Negative Negative CANNABINOID SCREEN URINE (BEAKER) (test zzdm=027) Negative Negative AMPH/METHAMPH SCREEN (BEAKER) (test iupg=0434) Negative Negative PHENCYCLIDINE SCREEN URINE (BEAKER) (test lrjl=154) Negative Negative OXYCODONE SCREEN URINE (BEAKER) (test mlql=5639) Negative Negative DRUG CUTOFF CONC.Cocaine 300 ng/mL Cannabinoid 50 ng/mL Benzodiazepine 200 ng/mLBarbiturate 200 ng/ mLPhencyclidine 25 ng/mLOpiate 300 ng/mLMethadone 300 ng/mLAmphetamine/ 1000 ng/mL MethamphetamineOxycodone 300 ng/mLThis assay provides an unconfirmed qualitative test result for the clinical management of patients in emergency situations. Chain of custody not maintained. Some imsd-lmr-evalaxd medications, as well as adulterants, may cause inaccurate results. Clinical correlation should be applied. A more comprehensive drug screen or confirmation of a detected drug may be performed upon request.[id number] 13:27:00 Test Item Value Reference Range Comments ALPHA-1 ANTITRYPSIN (BEAKER) 169.80 mg/dL 90.00-200.00 Specimen slightly hemolyzed (test mxve=686) [id number] 12:53:00 Test Item Value Reference Range Comments HOMOCYSTEINE (BEAKER) (test gsqb=012) 40.2 umol/L 5.1-15.4 HEPATIC FUNCTION [id number] 12:38:00 Test Item Value Reference Range Comments TOTAL PROTEIN (BEAKER) (test hvmn=269) 7.5 gm/dL 6.0-8.3 ALBUMIN (BEAKER) (test unmj=3144) 4.5 g/dL 3.5-5.0 BILIRUBIN TOTAL (BEAKER) (test wxxv=946) 1.8 mg/dL 0.2-1.2 BILIRUBIN DIRECT (BEAKER) (test xudg=143) 0.8 mg/dL 0.1-0.5 ALKALINE PHOSPHATASE (BEAKER) (test krnu=217) 52 U/L 40-150 AST (SGOT) (BEAKER) (test hspj=165) 12 U/L 5-34 ALT (SGPT) (BEAKER) (test qgwq=211) 14 U/L 6-55 RAD, CHEST, 1 VIEW, NON [id number] 09:53:00Reason for exam:-> pneumothoraxShould this be performed [...] osseous abnormality is identified. Signed: Edvin Garcia [facility] Verified Date/Time: 04/23/2018 09:53:45 Reading Location: [facility] Radiology Reading Room BASIC METABOLIC [id number] 05:54:00 Test Item Value Reference Range Comments SODIUM (BEAKER) (test 139 meq/L 136-145 eesw=293) POTASSIUM (BEAKER) (test 4.0 meq/L 3.5-5.1 spfj=878) CHLORIDE (BEAKER) (test 106 meq/L 98-107 xznb=354) CO2 (BEAKER) (test 26 meq/L 22-29 tnjl=083) BLOOD UREA NITROGEN 6 mg/dL 7-21 (BEAKER) (test ixcp=006) CREATININE (BEAKER) (test 0.90 mg/dL 0.57-1.25 mkkb=523) GLUCOSE RANDOM (BEAKER) 102 mg/dL 70-105 (test kmfs=932) CALCIUM (BEAKER) (test 9.5 mg/dL 8.4-10.2 gnty=446) EGFR (BEAKER) (test 105 mL/min/1.73 sq m ESTIMATED GFR IS NOT ztpm=8181) ACCURATE CREATININE CLEARANCE IN PREDICTING GLOMERULAR FILTRATION RATE. ESTIMATED GFR IS NOT APPLICABLE FOR DIALYSIS PATIENTS. CBC W/PLT COUNT & AUTO [id number] 23:44:00 Test Item Value Reference Range Comments WHITE BLOOD CELL COUNT (BEAKER) (test pshb=215) 10.3 K/ L 3.5-10.5 RED BLOOD CELL COUNT (BEAKER) (test rqqm=758) 4.94 M/ L 4.63-6.08 HEMOGLOBIN (BEAKER) (test ouul=223) 13.9 GM/DL 13.7-17.5 HEMATOCRIT (BEAKER) (test rvgm=892) 40.9 % 40.1-51.0 MEAN CORPUSCULAR VOLUME (BEAKER) (test nnfd=005) 82.8 fL 79.0-92.2 MEAN CORPUSCULAR HEMOGLOBIN (BEAKER) (test 28.1 pg 25.7-32.2 uemp=949) MEAN CORPUSCULAR HEMOGLOBIN CONC (BEAKER) (test 34.0 GM/DL 32.3-36.5 fiha=745) RED CELL DISTRIBUTION WIDTH (BEAKER) (test 13.2 % 11.6-14.4 qlgv=187) PLATELET COUNT (BEAKER) (test cxwn=952) 238 K/CU MM 150-450 MEAN PLATELET VOLUME (BEAKER) (test avsm=238) 10.6 fL 9.4-12.4 NUCLEATED RED BLOOD CELLS (BEAKER) (test 0 /100 WBC 0-0 bbpu=612) NEUTROPHILS RELATIVE PERCENT (BEAKER) (test 75 % vdek=513) LYMPHOCYTES RELATIVE PERCENT (BEAKER) (test 19 % oymd=629) MONOCYTES RELATIVE PERCENT (BEAKER) (test 4 % dlqq=446) EOSINOPHILS RELATIVE PERCENT (BEAKER) (test 2 % hecl=318) BASOPHILS RELATIVE PERCENT (BEAKER) (test 0 % ohsn=317) NEUTROPHILS ABSOLUTE COUNT (BEAKER) (test 7.74 K/ L 1.78-5.38 drfa=599) LYMPHOCYTES ABSOLUTE COUNT (BEAKER) (test 1.95 K/ L 1.32-3.57 vqmc=915) MONOCYTES ABSOLUTE COUNT (BEAKER) (test 0.37 K/ L 0.30-0.82 mbzy=559) EOSINOPHILS ABSOLUTE COUNT (BEAKER) (test 0.16 K/ L 0.04-0.54 xbsp=466) BASOPHILS ABSOLUTE COUNT (BEAKER) (test 0.04 K/ L 0.01-0.08 mker=132) IMMATURE GRANULOCYTES-RELATIVE PERCENT (BEAKER) 1 % 0-1 (test vifh=1235) POCT-GLUCOSE [id number] 21:08:00 Test Item Value Reference Range Comments POC-GLUCOSE METER (BEAKER) 133 mg/dL 70-110 TESTED AT [facility] [address] (test xykf=1627) [facility] [id number]
--- OUTSIDE RECORDS SUMMARY | 2019-01-28 06:28 | XMS REPORT | Clinical Summary ---
:1995 Author Organization [facility] Address [address] [place] [address] Care Team Providers Name Role Phone Unavailable [...] MD Isauro Freeman Titilola R., MD after 01/27/2018 Family History Medical History Relation Name Comments [...] CDT procedure are in the results section. [id number]\\, Routine 04/23/2018 11:59 Results for this SERUM [...] procedure are in the results section. after 01/27/2018 Results RHYTHM STRIP - SCAN (12/12/2018 10:41 AM CDT)Only the most recent of2 resultswithin the time period is included. Narrative Performed At XR chest 1 view portable / bedside (04/25/2018 8:57 AM CDT)Only the most recent of3 resultswithin the time period is included. Specimen Narrative Performed At FINAL REPORT [facility] Chest one view INDICATION: Pneumothorax COMPARISON: [...] MD Report Verified Date/Time:04/25/2018 09:24:12 Reading Location: [facility] Radiology Reading Room Procedure Note Interface, External [...] Verified Date/Time: 04/25/2018 09:24:12 Reading Location: [facility] Radiology Reading Room Performing Organization Address City/[facility] Phone Number [facility] Vitamin B12 and Folate (04/25/2018 1:37 AM CDT) Vitamin B12 <146 (L) 213 - 816 pg/mL [facility] Folate 2.4 (L) >=7.0 ng/mL [facility] Specimen Blood Performing Organization Address City/[facility]/Zipcode Phone Number [address] [address] [phone] CENTER Vancomycin level, trough (04/25/2018 1:37 AM CDT) Vancomycin Tr 8.6 (L) 10.0 - 20.0 ug/mL [facility] Specimen Blood Performing Organization Address [facility] Phone Number [address] [address] CENTER urine homocysteine (04/24/2018 2:41 PM CDT) Scan Result [facility] Specimen Urine Narrative Performed At Performing Organization Address City/State/Zipcode Phone Number [facility] [address] [place], [place] CT abdomen/pelvis with IV contrast (04/24/2018 10:23 AM CDT) Specimen Narrative Performed At FINAL REPORT [facility] TECHNIQUE: CT of the chest, abdomen, and [...] MD Report Verified Date/Time:04/24/2018 12:29:48 Reading Location: [facility] Body Reading Room [...] Report Verified Date/Time: 04/24/2018 12:29:48 Reading Location: [facility] Body Reading Room Performing Organization Address City/State/Zipcode Phone Number [facility] CT chest with IV contrast (04/24/2018 10:23 AM CDT) Specimen Narrative Performed At FINAL REPORT [facility] TECHNIQUE: CT of the chest, abdomen, and [...] MD Report Verified Date/Time:04/24/2018 12:29:48 Reading Location: [facility] Body Reading Room [...] Report Verified Date/Time: 04/24/2018 12:29:48 Reading Location: [facility] Body Reading Room Performing Organization Address City/State/Zipcode Phone Number [facility] CBC with platelet count + automated diff (04/24/2018 5:19 AM CDT)Only the most recent of2 resultswithin the time period is included. WBC 7.7 3.5 - 10.5 K/L [facility] RBC 5.27 4.63 - 6.08 M/L [facility] Hemoglobin 14.5 13.7 - 17.5 GM/DL [facility] Hematocrit 43.6 40.1 - 51.0 % [facility] MCV 82.7 79.0 - 92.2 fL [facility] MCH 27.5 25.7 - 32.2 pg [facility] MCHC 33.3 32.3 - 36.5 GM/DL [facility] RDW 13.1 11.6 - 14.4 % [facility] Platelets 216 150 - 450 K/CU MM [facility] MPV 10.3 9.4 - 12.4 fL [facility] nRBC 0 0 - 0 /100 WBC [facility] % Neutros 76 % [facility] % Lymphs 17 % [facility] % Monos 5 % [facility] % Eos 2 % [facility] % Baso 0 % [facility] # Neutros 5.83 (H) 1.78 - 5.38 K/L [facility] # Lymphs 1.30 (L) 1.32 - 3.57 K/L [facility] # Monos 0.35 0.30 - 0.82 K/L [facility] # Eos 0.17 0.04 - 0.54 K/L [facility] # Baso 0.02 0.01 - 0.08 K/L [facility] Immature Granulocytes-Relative 0 0 - 1 % [facility] Specimen Blood Performing Organization Address City/[facility]/Zipcode Phone Number [address] [address] [facility] Prothrombin time/INR (04/24/2018 5:19 AM CDT) Protime 15.9 (H) 11.7 - 14.7 seconds [facility] INR 1.3 <=5.9 [facility] Specimen Blood Narrative Performed At [facility] RECOMMENDED COUMADIN/WARFARIN INR THERAPY RANGES STANDARD DOSE: 2.0 - 3.0 Includes: PROPHYLAXIS for venous thrombosis, systemic embolization; TREATMENT for venous thrombosis and/or pulmonary embolus. HIGH RISK: Target INR is 2.5-3.5 for patients with mechanical heart valves. Performing Organization Address City/State/[facility] Phone Number [address] [address] [facility] Hepatic function panel (04/24/2018 5:19 AM CDT)Only the most recent of2 resultswithin the time period is included. Protein, Total 7.0 6.0 - 8.3 gm/dL [facility] Albumin 4.1 3.5 - 5.0 g/dL [facility] Total Bilirubin 1.7 (H) 0.2 - 1.2 mg/dL [facility] Bilirubin, Direct 0.6 (H) 0.1 - 0.5 mg/dL [facility] Alkaline Phosphatase 46 40 - 150 U/L [facility] AST 12 5 - 34 U/L [facility] ALT 15 6 - 55 U/L [facility] Specimen Blood Performing Organization Address [facility]/Zipcode Phone Number [facility] [address] [place] [address] [phone] [facility] Basic Metabolic Panel (04/24/2018 5:19 AM CDT)Only the most recent of2 resultswithin the time period is included. Sodium 137 136 - 145 meq/L [facility] Potassium 4.1 3.5 - 5.1 meq/L [facility] Chloride 105 98 - 107 meq/L [facility] CO2 25 22 - 29 meq/L [facility] BUN 8 7 - 21 mg/dL [facility] Creatinine 0.95 0.57 - 1.25 mg/dL [facility] Glucose 89 70 - 105 mg/dL [facility] Calcium 9.7 8.4 - 10.2 mg/dL [facility] EGFR 98Comment: ESTIMATED GFR IS mL/min/1.73 sq m [facility] NOT ACCURATE [facility] CLEARANCE IN PREDICTING GLOMERULAR FILTRATION RATE. ESTIMATED GFR IS NOT APPLICABLE FOR DIALYSIS PATIENTS. Specimen Blood Performing Organization Address City/[facility] Phone Number [facility] [address] [place] [address] [facility] Rapid drug screen, urine (04/23/2018 1:12 PM CDT) Barbiturate Screen Negative Negative [facility] Benzodiazepine Screen Negative Negative [facility] Cocaine (Metab.) Screen Negative Negative [facility] Methadone Screen Negative Negative [facility] Opiate Screen Negative Negative [facility] Cannabinoid Screen Negative Negative [facility] Amph/Methamph Screen Negative Negative [facility] Phencyclidine Screen Negative Negative [facility] Oxycodone Screen Negative Negative [facility] Specimen Urine Narrative Performed At [facility] DRUGCUTOFF CONC. Cocaine 300 ng/mL Qhhponnjxfd65 ng/mL Jaoxocrccksraq280 ng/mL Barbiturate 200 ng/mL Nxnsvonoktsgc49 ng/mL Dtyoqa590 ng/mL Methadone 300 ng/mL Amphetamine/ 1000 ng/mL Methamphetamine Oxycodone 300 ng/mL This assay provides an unconfirmed qualitative test result for the clinical management of patients in emergency situations. Chain of custody not maintained. Some aplv-iet-lubtmap medications, as well as adulterants, may cause inaccurate results. Clinical correlation should be applied. A more comprehensive drug screen or confirmation of a detected drug may be performed upon request. Performing Organization Address City/[facility] Phone Number [address] [address] C[place] Iraih-0-npniysvqfvs (04/23/2018 11:59 AM CDT) A-1 Antitrypsin 169.80Comment: Specimen 90.00 - 200.00 mg/dL [facility] slightly hemolyzed [facility] Specimen Blood Performing Organization Address [facility] Phone Number [address] [address] [facility] Homocysteine (04/23/2018 11:59 AM CDT) Homocysteine 40.2 (H) 5.1 - 15.4 umol/L [facility] Specimen Blood Performing Organization Address [facility] Phone Number [address] [phone] [facility] POC-Glucose meter (04/22/2018 9:03 PM CDT) POC-Glucose Meter 133 (H)Comment: TESTED AT 70 - 110 mg/dL [facility] BSC [address] [facility] [place] [address] Specimen Blood Performing Organization Address City/State/Zipcode Phone Number [facility] MEDICAL [address] [place] [address] [phone] CENTER after 01/27/2018 Insurance Payer Benefit Plan / Subscriber ID Type Phone Address Group MEDICAID - MEDICAID [facility] xxxxxxxxx Medicaid Contracted MGD CARE PLAN Advance Directives For more information, please contact:[facility] [place] [address] [phone] Code Status Date Activated Date Inactivated Comments Full Code 04/22/2018 10:44 PM 04/25/2018 4:40 PM This code status was determined by: Patient
--- OUTSIDE RECORDS SUMMARY | 2019-01-28 06:28 | XMS REPORT ---
[...] End Status Dosage System Date Date Benadryl [facility] 16298550722 25 MG Orally Active 1 tablet Allergy every 8 hrs as needed Gabapentin ND 74280484186 300 MG Orally December 05, Active 1 capsule Twice a day 2018 before bedtime Results No Known Results Summary Purpose eClinicalWorks Submission
--- OUTSIDE RECORDS SUMMARY | 2019-01-28 06:28 | XMS REPORT ---
:1995 Author Organization eClinicalWorks Care Team Providers Name Role Phone Inna Herring Provider Role Unavailable Allergies No Known Allergies Problems Problem Type Condition Code Onset Dates Condition Status Problem Aspergers' syndrome F84.5 Active Problem Memory deficit R41.3 Active Medications Medication Code System Code Instructions Start End Date Status Dosage Date walking boot [facility] [address] short walking December 12, Active as directed 04-03 boot for ankle 2018 foot fx while up Results No Known Results Summary Purpose Vitals [email or web address])inicalActive Media Submission
--- OUTSIDE RECORDS SUMMARY | 2019-01-28 06:28 | XMS REPORT ---
[...] Start End Date Status Dosage Date Benadryl [facility] [address] 25 MG Orally Active 1 tablet Allergy 8-25 every 8 hrs as needed Results No Known Results Summary Purpose eClinicalWorks Submission
--- OUTSIDE RECORDS SUMMARY | 2019-01-28 06:29 | XMS REPORT ---
[...] End Status Dosage System Date Date Meloxicam [facility] 48671152093 15 MG Orally Apr 30, Aug 28, Active 1 tablet Once a day 2017 2018 Gabapentin ND 61760240008 300 MG Orally November Active 1 capsule Twice a day 2017 before bedtime Benadryl [facility] 80866340386 25 MG Orally Active 1 tablet as Allergy every 8 hrs needed walking boot [facility] [address]-10 short walking December 12, Active as directed boot for ankle 2018 foot fx while up Results No Known Results Summary Purpose eClinicalWorks Submission
--- NOTE | 2019-01-28 06:53 | ER ---
Nurse's Notes [facility] Name: Wicho Adams Age: 23 yrs Sex: Male : 1995 Arrival Date: 01/28/2019 Time: 06:25 Bed 5 Private MD: Claudia Herring Diagnosis: Jaw pain-right upper Presentation: 01/28 06:40 Presenting complaint: Patient states: Toothache to right upper tooth for the past lp1 several months; States waiting for insurance coverage for dental appt, but pain was severe today; No relief with 2 tablets of Codeine that was previously prescribed by this ED. Transition of care: patient was not received from another setting of care. Onset of symptoms was January 28, 2019. Risk Assessment: Do you want to hurt yourself or someone else? Patient reports no desire to harm self or others. Initial Sepsis Screen: Does the patient meet any 2 criteria? No. Patient's initial sepsis screen is negative. Does the patient have a suspected source of infection? No. Patient's initial sepsis screen is negative. Care prior to arrival: None. 06:40 Method Of Arrival: Ambulatory lp1 06:40 Acuity: TAN 5 lp1 Historical: - Allergies: 06:43 No Known Allergies; lp1 - Home Meds: 06:43 meloxicam Oral [Active]; lp1 - PMHx: 06:43 Asperger syndrome; joint issues; lp1 - PSHx: 06:43 None; lp1 - Immunization history:: Adult Immunizations up to date. - Social history:: Smoking status: Patient/guardian denies using tobacco. - Ebola Screening: : No symptoms or risks identified at this time. Screenin:46 Abuse screen: Denies threats or abuse. Denies injuries from another. Nutritional lp1 screening: No deficits noted. Tuberculosis screening: No symptoms or risk factors identified. Fall Risk None identified. Assessment: 06:44 General: Appears in no apparent distress. Behavior is appropriate for age. Pain: lp1 Complains of pain in upper right first molar Pain currently is 8 out of 10 on a pain scale. Neuro: No deficits noted. Cardiovascular: No deficits noted. Respiratory: No deficits noted. GI: No signs and/or symptoms were reported involving the gastrointestinal system. : No signs and/or symptoms were reported regarding the genitourinary system. EENT: Dental caries noted in upper right first molar (#3). Derm: Skin is pink, warm \T\ dry. Musculoskeletal: No deficits noted. 07:45 Reassessment: Patient is alert, oriented x 3, equal unlabored respirations, skin aa5 warm/dry/pink. Pt refused Tylenol and Ibuprofen, PA was notified . 08:14 Reassessment: Patient is alert, oriented x 3, equal unlabored respirations, skin aa5 warm/dry/pink. General: Appears comfortable. Vital Signs: 06:43 BP 123 / 86; Pulse 64; Resp 16; Temp 97.6(TE); Pulse Ox 99% on R/A; Weight 90.72 kg; lp1 Height 5 ft. 11 in. (180.34 cm); Pain 8/10; 06:43 Body Mass Index 27.89 (90.72 kg, 180.34 cm) lp1 ED Course: 06:25 Patient arrived in ED. am2 06:27 Claudia Herring FNP-C is Private Physician. am2 06:36 [facility] cp 06:36 Cali Farooq MD is Attending Physician. cp 06:40 Elisa Gonsalez RN is Primary Nurse. lp1 06:42 Triage completed. lp1 06:44 Arm band placed on right wrist. lp1 06:46 Patient has correct armband on for positive identification. lp1 06:46 No provider procedures requiring assistance completed. Patient did not have IV access lp1 during this emergency room visit. 06:51 [facility] D[facility] is Referral Physician. cp Administered Medications: 07:47 Not Given (Patient Refused): Tylenol 650 mg PO once cp 07:48 Not Given (Patient Refused): Ibuprofen 800 mg PO once cp 07:52 Drug: TORadol 60 mg Route: IM; Site: right gluteus; aa5 08:14 Follow up: Response: No adverse reaction aa5 Outcome: 06:53 Discharge ordered by . cp 08:14 Discharged to home ambulatory. aa5 08:14 Condition: good 08:14 Discharge instructions given to patient, Instructed on discharge instructions, follow up and referral plans. medication usage, Demonstrated understanding of instructions, follow-up care, medications, Prescriptions given X 2. 08:15 Patient left the ED. aa5 Signatures: Ania Durham RN RN aa5 Elisa Gonsalez RN RN lp1 Carlos Morse PA PA cp Moreno, Amanda am2 Corrections: (The following items were deleted from the chart) 06:46 06:44 Pain: Complains of pain in upper right first molar Pain currently is 8 out of 10 lp1 on a pain scale. lp1
--- NOTE | 2019-01-28 06:53 | EDPHYS ---
Physician Documentation [facility] Name: Wicho Adams Age: 23 yrs Sex: Male : 1995 Arrival Date: 01/28/2019 Time: 06:25 Bed 5 Private MD: Clauida Herring ED Physician Cali Farooq HPI: 01/28 06:41 This 23 yrs old Male presents to ER via Unassigned with complaints of cp Toothache, Abscess. 06:41 The patient presents with broken tooth/teeth, pain. The problem is located in the right cp upper jaw. Onset: The symptoms/episode began/occurred 2 day(s) ago. Duration: The symptoms are continuous. Associated signs and symptoms: Pertinent negatives: anorexia, dysphagia, fever, inability to eat, swelling, facial. Severity of symptoms: in the emergency department the symptoms are unchanged, despite home interventions. The patient has experienced similar episodes in the past, with the last episode occurring 1 month(s) ago. Historical: - Allergies: 06:43 No Known Allergies; lp1 - Home Meds: 06:43 meloxicam Oral [Active]; lp1 - PMHx: 06:43 Asperger syndrome; joint issues; lp1 - PSHx: 06:43 None; lp1 - Immunization history:: Adult Immunizations up to date. - Social history:: Smoking status: Patient/guardian denies using tobacco. - Ebola Screening: : No symptoms or risks identified at this time. ROS: 06:44 Eyes: Negative for injury, pain, redness, and discharge. cp 06:44 Constitutional: Negative for body aches, chills, fever, poor PO intake. 06:44 ENT: Positive for dental pain, Negative for drainage from ear(s), ear pain, sore throat, difficulty swallowing, difficulty handling secretions. 06:44 Cardiovascular: Negative for chest pain. 06:44 Respiratory: Negative for cough. 06:44 Abdomen/GI: Negative for vomiting, diarrhea. 06:44 Skin: Negative for rash. 06:44 Neuro: Negative for altered mental status, headache. 06:44 All other systems are negative. Exam: 06:45 Head/Face: Normocephalic, atraumatic. cp 06:45 Constitutional: The patient appears in no acute distress, alert, awake, non-toxic, well developed, well nourished. 06:45 Eyes: Periorbital structures: appear normal, Conjunctiva: normal, no exudate, no injection, Sclera: no appreciated abnormality, Lids and lashes: appear normal, bilaterally. 06:45 ENT: External ear(s): are unremarkable, Ear canal(s): are normal, clear, TM's: are normal, no evidence of bulging, no erythema, Nose: is normal, Mouth: Lips: moist, Oral mucosa: pink and intact, moist, Gums: normal with healthy appearance, Tongue: is normal, abscess, is not appreciated, Posterior pharynx: Airway: no evidence of obstruction, patent, Tonsils: are normal in appearance, swelling, is not appreciated, erythema, is not appreciated, exudate, is not appreciated, Dental exam: abscess, is not appreciated, dental caries, that is mild, diffusely, fractured teeth are noted, specifically the upper right second bicuspid (#4) and lower left second molar (#18), pain, that is moderate, specifically in the upper right second bicuspid (#4). 06:45 Neck: ROM/movement: is normal, is supple, without pain, no range of motions limitations, no nuchal rigidity, Lymph nodes: no appreciated lymphadenopathy. 06:45 Chest/axilla: Inspection: normal. 06:45 Cardiovascular: Rate: normal. 06:45 Respiratory: the patient does not display signs of respiratory distress, Respirations: normal. 06:45 Skin: no rash present. Vital Signs: 06:43 BP 123 / 86; Pulse 64; Resp 16; Temp 97.6(TE); Pulse Ox 99% on R/A; Weight 90.72 kg; lp1 Height 5 ft. 11 in. (180.34 cm); Pain 8/10; 06:43 Body Mass Index 27.89 (90.72 kg, 180.34 cm) lp1 MDM: 06:37 Patient medically screened. cp 06:50 Differential diagnosis: dental caries, dental abscess, pericoronitis, acute necrotizing cp ulcerative gingivitis, gingivostomatitis. 06:53 Data reviewed: vital signs, nurses notes, and as a result, I will discharge patient. cp Administered Medications: 07:47 Not Given (Patient Refused): Tylenol 650 mg PO once cp 07:48 Not Given (Patient Refused): Ibuprofen 800 mg PO once cp 07:52 Drug: TORadol 60 mg Route: IM; Site: right gluteus; aa5 08:14 Follow up: Response: No adverse reaction aa5 Disposition: 01/29 03:33 Co-signature as Attending Physician, Cali Farooq MD. Disposition: 01/28/19 06:53 Discharged to Home. Impression: Jaw pain - right upper. - Condition is Stable. - Discharge Instructions: Dental Pain. - Prescriptions for Amoxicillin 875 mg Oral Tablet - take 1 tablet by ORAL route every 12 hours for 10 days; 20 tablet. Tramadol 50 mg Oral Tablet - take 1 tablet by ORAL route every 8 hours as needed; 12 tablet. - Medication Reconciliation Form, Thank You Letter, Antibiotic Education, Prescription Opioid Use form. - Follow up: [facility]; When: 2 - 3 days; Reason: Recheck today's complaints. - Problem is new. - Symptoms have improved. Signatures: Ania Durham RN RN aa5 Elisa Gonsalez RN RN lp1 Carlos Morse PA PA cp Cali Farooq MD MD Corrections: (The following items were deleted from the chart) 01/28 08:15 06:53 01/28/2019 06:53 Discharged to Home. Impression: Jaw pain - right upper. aa5 Condition is Stable. Forms are Medication Reconciliation Form, Thank You Letter, Antibiotic Education, Prescription Opioid Use. Follow up: [facility]; When: 2 - 3 days; Reason: Recheck today's complaints. Problem is new. Symptoms have improved. cp
[2019-01-28] MEDS ORDERED: ACETAMINOPHEN 325 MG TABLET ONE (07:59)
[2019-01-28] MEDS ORDERED: IBUPROFEN 400 MG TAB ONE (08:00)
[2019-01-28] MEDS ORDERED: KETOROLAC 30 MG/ML INJ ONE ×2 (08:05→08:06)
== END 2019-01-28 08:15 | disposition home or self-care (01) ==
LOC: ER 06:24
DX: R68.84 Jaw pain (principal)
CPT/HCPCS: 96372; 99283

== ENCOUNTER 2019-04-26 14:26 | Emergency (ER) | payer OTHER ==
--- OUTSIDE RECORDS SUMMARY | 2019-04-26 14:28 | XMS REPORT ---
[...] End Status Dosage System Date Date Meloxicam [facility] 45092190597 15 MG Orally Apr 30, Aug 28, Active 1 tablet Once a day 2017 2018 Gabapentin ND 49193252480 300 MG Orally November Active 1 capsule Twice a day 2017 before bedtime Benadryl [facility] 25461166086 25 MG Orally Active 1 tablet as Allergy every 8 hrs needed walking boot [facility] [address]-71 short walking December 12, Active as directed boot for ankle 2018 foot fx while up Results No Known Results Summary Purpose eClinicalWorks Submission
--- OUTSIDE RECORDS SUMMARY | 2019-04-26 14:28 | XMS REPORT | Clinical Summary ---
:1995 Author Organization [facility] Address [address] [place] [address] Care Team Providers Name Role Phone Unavailable [...] MD Isauro Freeman Titilola R., MD after 04/25/2018 Family History Medical History Relation Name Comments [...] CDT Inhaled Oxygen Concentration - - Weight - - Height - - Body Mass Index - - Plan of Treatment Not on file Procedures Procedure Name Priority Date/Time Associated Comments Diagnosis RHYTHM STRIP - SCAN 12/12/2018 10:41 AM CDT RHYTHM STRIP - SCAN 04/26/2018 1:11 PM CDT XR CHEST 1 VIEW Routine 04/25/2018 8:57 AM Results for this PORTABLE/BEDSIDE CDT procedure are in the results section. VITAMIN B12 AND Routine 04/25/2018 1:37 AM Results for this FOLATE CDT procedure are in the results section. VANCOMYCIN LEVEL, Timed 04/25/2018 1:37 AM Results for this TROUGH CDT procedure are in the results section. after 04/25/2018 Results RHYTHM STRIP - SCAN (12/12/2018 10:41 AM CDT)Only the most recent of2 resultswithin the time period is included. Narrative Performed At XR chest 1 view portable / bedside (04/25/2018 8:57 AM CDT) Specimen Narrative Performed At FINAL REPORT [facility] Chest one view INDICATION: Pneumothorax COMPARISON: [...] MD Report Verified Date/Time:04/25/2018 09:24:12 Reading Location: [facility] Radiology Reading Room Procedure Note Interface, External [...] Report Verified Date/Time: 04/25/2018 09:24:12 Reading Location: [facility] Radiology Reading Room Performing Organization Address City/[facility] Phone Number RIS Vitamin B12 and Folate (04/25/2018 1:37 AM CDT) Vitamin B12 <146 (L) 213 - 816 pg/mL [facility] Folate 2.4 (L) >=7.0 ng/mL [facility] Specimen Blood Performing Organization Address [facility] Phone Number [place] [phone] [place] [address] CENTER Vancomycin level, trough (04/25/2018 1:37 AM CDT) Vancomycin Tr 8.6 (L) 10.0 - 20.0 ug/mL [facility] Specimen Blood Performing Organization Address [facility] Phone Number [facility] [address] [place] [address] CENTER after 04/25/2018 Insurance Payer Benefit Plan / Subscriber ID Type Phone Address Group MEDICAID - MEDICAID DAMI COMM STAR xxxxxxxxx Medicaid Contracted MGD CARE PLAN Advance Directives For more information, please contact:[address] [phone] Code Status Date Activated Date Inactivated Comments Full Code 04/22/2018 10:44 PM 04/25/2018 4:40 PM This code status was determined by: Patient
--- OUTSIDE RECORDS SUMMARY | 2019-04-26 14:28 | XMS REPORT ---
:1995 [facility] Address [address] [place] [address] Care Team Providers Name Role Phone ELSI [...] ID: 1 VIEW, NON 09:24:00 exam:->pneumothoraxShould this [id number] Chest one view DEPT be performed at [...] The bones appear intact. Signed: Edvin Garcia [facility] Verified Date/Time: 04/25/2018 09:24:12 Reading Location: [facility] Radiology Reading Room MIN B12 AND FOLATE 2018-04-25 02:48:00 Test Item Value Reference Range Comments VITAMIN B12 (BEAKER) (test rabm=812) < pg/mL 213-816 FOLATE (BEAKER) (test wvir=134) 2.4 ng/mL >=7.0 VANCOMYCIN LEVEL, [id number] 02:10:00 Test Item Value Reference Range Comments VANCOMYCIN TROUGH (DENNIS) (test rvgr=651) 8.6 ug/mL 10.0-20.0 CT, CHEST, WITH [id number] 12:29:00Left pneumothorax and pneumediastinum with pneumoperitoneum and [...] MDReport Verified Date/Time: 04/24/2018 12:29:48 Reading Location: [facility] B[facility] C[address] CT Body Reading Room CT, [id number] 12:29:00Left pneumothorax and pneumediastinum with pneumoperitoneum and [...] MDReport Verified Date/Time: 04/24/2018 12:29:48 Reading Location: [facility] B[facility] C[address] CT Body Reading Room RAD, CHEST, 1 VIEW, NON [id number] 07:33:00Reason for exam:->spontaneous PTX, pneumomediastinumShould this be [...] MDReport Verified Date/Time: 04/24/2018 07:33:30 Reading Location: [facility] Radiology Reading Room HEPATIC FUNCTION [id number] 05:47:00 Test Item Value Reference Range Comments TOTAL PROTEIN (BEAKER) (test rcoq=331) 7.0 gm/dL 6.0-8.3 ALBUMIN (BEAKER) (test ucmy=3418) 4.1 g/dL 3.5-5.0 BILIRUBIN TOTAL (BEAKER) (test ptlz=838) 1.7 mg/dL 0.2-1.2 BILIRUBIN DIRECT (BEAKER) (test jgdv=261) 0.6 mg/dL 0.1-0.5 ALKALINE PHOSPHATASE (BEAKER) (test rlts=237) 46 U/L 40-150 AST (SGOT) (BEAKER) (test cjtw=703) 12 U/L 5-34 ALT (SGPT) (BEAKER) (test hgph=442) 15 U/L 6-55 BASIC METABOLIC [id number] 05:47:00 Test Item Value Reference Range Comments SODIUM (BEAKER) (test 137 meq/L 136-145 ixvd=060) POTASSIUM (BEAKER) (test 4.1 meq/L 3.5-5.1 zptg=826) CHLORIDE (BEAKER) (test 105 meq/L 98-107 tmkn=120) CO2 (BEAKER) (test 25 meq/L 22-29 rurl=217) BLOOD UREA NITROGEN 8 mg/dL 7-21 (BEAKER) (test daaf=355) CREATININE (BEAKER) (test 0.95 mg/dL 0.57-1.25 lslo=490) GLUCOSE RANDOM (BEAKER) 89 mg/dL 70-105 (test jkue=955) CALCIUM (BEAKER) (test 9.7 mg/dL 8.4-10.2 dhvs=632) EGFR (BEAKER) (test 98 mL/min/1.73 sq m ESTIMATED GFR IS NOT tgsz=8984) ACCURATE CREATININE CLEARANCE IN PREDICTING GLOMERULAR FILTRATION RATE. ESTIMATED GFR IS NOT APPLICABLE FOR DIALYSIS PATIENTS. PROTHROMBIN TIME/[id number] 05:42:00 Test Item Value Reference Range Comments PROTIME (BEAKER) (test hnsm=068) 15.9 seconds 11.7-14.7 INR (BEAKER) (test yuqa=914) 1.3 <=5.9 RECOMMENDED COUMADIN/WARFARIN INR THERAPY RANGESSTANDARD DOSE: 2.0 - 3.0 Includes: PROPHYLAXIS forvenous thrombosis, systemic embolization; TREATMENT for venous thrombosis and/or pulmonary embolus.HIGH RISK: Target INR is 2.5-3.5 for patients with mechanical heart valves.CBC W/PLT COUNT & AUTO [id number] 05:28:00 Test Item Value Reference Range Comments WHITE BLOOD CELL COUNT (BEAKER) (test skmf=854) 7.7 K/ L 3.5-10.5 RED BLOOD CELL COUNT (BEAKER) (test cipa=345) 5.27 M/ L 4.63-6.08 HEMOGLOBIN (BEAKER) (test bozo=821) 14.5 GM/DL 13.7-17.5 HEMATOCRIT (BEAKER) (test bgxv=971) 43.6 % 40.1-51.0 MEAN CORPUSCULAR VOLUME (BEAKER) (test npkb=330) 82.7 fL 79.0-92.2 MEAN CORPUSCULAR HEMOGLOBIN (BEAKER) (test 27.5 pg 25.7-32.2 tnkr=660) MEAN CORPUSCULAR HEMOGLOBIN CONC (BEAKER) (test 33.3 GM/DL 32.3-36.5 lorc=023) RED CELL DISTRIBUTION WIDTH (BEAKER) (test 13.1 % 11.6-14.4 ywgp=914) PLATELET COUNT (BEAKER) (test jwen=706) 216 K/CU MM 150-450 MEAN PLATELET VOLUME (BEAKER) (test dgvm=330) 10.3 fL 9.4-12.4 NUCLEATED RED BLOOD CELLS (BEAKER) (test 0 /100 WBC 0-0 wnsi=584) NEUTROPHILS RELATIVE PERCENT (BEAKER) (test 76 % rons=007) LYMPHOCYTES RELATIVE PERCENT (BEAKER) (test 17 % tjbk=242) MONOCYTES RELATIVE PERCENT (BEAKER) (test 5 % hljd=445) EOSINOPHILS RELATIVE PERCENT (BEAKER) (test 2 % bnlg=365) BASOPHILS RELATIVE PERCENT (BEAKER) (test 0 % uwpf=381) NEUTROPHILS ABSOLUTE COUNT (BEAKER) (test 5.83 K/ L 1.78-5.38 cbsh=839) LYMPHOCYTES ABSOLUTE COUNT (BEAKER) (test 1.30 K/ L 1.32-3.57 xikg=066) MONOCYTES ABSOLUTE COUNT (BEAKER) (test 0.35 K/ L 0.30-0.82 ceov=076) EOSINOPHILS ABSOLUTE COUNT (BEAKER) (test 0.17 K/ L 0.04-0.54 jdda=453) BASOPHILS ABSOLUTE COUNT (BEAKER) (test 0.02 K/ L 0.01-0.08 dvot=860) IMMATURE GRANULOCYTES-RELATIVE PERCENT (BEAKER) 0 % 0-1 (test duhz=2208) RAPID DRUG SCREEN, [id number] 13:53:00 Test Item Value Reference Range Comments BARBITURATE URINE (BEAKER) (test wtej=960) Negative Negative BENZODIAZEPINE SCREEN URINE (BEAKER) (test Negative Negative skai=110) COCAINE (METAB.) SCREEN (BEAKER) (test awxw=7215) Negative Negative METHADONE SCREEN (BEAKER) (test tmin=6998) Negative Negative OPIATE SCREEN URINE (BEAKER) (test xqzo=899) Negative Negative CANNABINOID SCREEN URINE (BEAKER) (test guio=547) Negative Negative AMPH/METHAMPH SCREEN (BEAKER) (test pcen=2750) Negative Negative PHENCYCLIDINE SCREEN URINE (BEAKER) (test vfec=002) Negative Negative OXYCODONE SCREEN URINE (BEAKER) (test noat=2956) Negative Negative DRUG CUTOFF CONC.Cocaine 300 ng/mL Cannabinoid 50 ng/mL Benzodiazepine 200 ng/mLBarbiturate 200 ng/ mLPhencyclidine 25 ng/mLOpiate 300 ng/mLMethadone 300 ng/mLAmphetamine/ 1000 ng/mL MethamphetamineOxycodone 300 ng/mLThis assay provides an unconfirmed qualitative test result for the clinical management of patients in emergency situations. Chain of custody not maintained. Some qzfw-rsw-yzylkgb medications, as well as adulterants, may cause inaccurate results. Clinical correlation should be applied. A more comprehensive drug screen or confirmation of a detected drug may be performed upon request.[id number] 13:27:00 Test Item Value Reference Range Comments ALPHA-1 ANTITRYPSIN (BEAKER) 169.80 mg/dL 90.00-200.00 Specimen slightly hemolyzed (test svvk=363) [id number] 12:53:00 Test Item Value Reference Range Comments HOMOCYSTEINE (BEAKER) (test wvqx=870) 40.2 umol/L 5.1-15.4 HEPATIC FUNCTION [id number] 12:38:00 Test Item Value Reference Range Comments TOTAL PROTEIN (BEAKER) (test ehtf=726) 7.5 gm/dL 6.0-8.3 ALBUMIN (BEAKER) (test vjge=7283) 4.5 g/dL 3.5-5.0 BILIRUBIN TOTAL (BEAKER) (test zkil=700) 1.8 mg/dL 0.2-1.2 BILIRUBIN DIRECT (BEAKER) (test ahds=245) 0.8 mg/dL 0.1-0.5 ALKALINE PHOSPHATASE (BEAKER) (test fgbg=513) 52 U/L 40-150 AST (SGOT) (BEAKER) (test sqgv=983) 12 U/L 5-34 ALT (SGPT) (BEAKER) (test schl=667) 14 U/L 6-55 RAD, CHEST, 1 VIEW, NON [id number] 09:53:00Reason for exam:-> pneumothoraxShould this be performed [...] osseous abnormality is identified. Signed: Edvin Garcia [facility] Verified Date/Time: 04/23/2018 09:53:45 Reading Location: [facility] Radiology Reading Room BASIC METABOLIC [id number] 05:54:00 Test Item Value Reference Range Comments SODIUM (BEAKER) (test 139 meq/L 136-145 zqza=625) POTASSIUM (BEAKER) (test 4.0 meq/L 3.5-5.1 fyln=121) CHLORIDE (BEAKER) (test 106 meq/L 98-107 vjoh=886) CO2 (BEAKER) (test 26 meq/L 22-29 xbco=598) BLOOD UREA NITROGEN 6 mg/dL 7-21 (BEAKER) (test snan=502) CREATININE (BEAKER) (test 0.90 mg/dL 0.57-1.25 ottk=562) GLUCOSE RANDOM (BEAKER) 102 mg/dL 70-105 (test vkxb=658) CALCIUM (BEAKER) (test 9.5 mg/dL 8.4-10.2 xvsj=362) EGFR (BEAKER) (test 105 mL/min/1.73 sq m ESTIMATED GFR IS NOT vmzi=6660) ACCURATE CREATININE CLEARANCE IN PREDICTING GLOMERULAR FILTRATION RATE. ESTIMATED GFR IS NOT APPLICABLE FOR DIALYSIS PATIENTS. CBC W/PLT COUNT & AUTO [id number] 23:44:00 Test Item Value Reference Range Comments WHITE BLOOD CELL COUNT (BEAKER) (test rwmj=401) 10.3 K/ L 3.5-10.5 RED BLOOD CELL COUNT (BEAKER) (test qlyz=381) 4.94 M/ L 4.63-6.08 HEMOGLOBIN (BEAKER) (test auvo=653) 13.9 GM/DL 13.7-17.5 HEMATOCRIT (BEAKER) (test napp=727) 40.9 % 40.1-51.0 MEAN CORPUSCULAR VOLUME (BEAKER) (test fqvj=446) 82.8 fL 79.0-92.2 MEAN CORPUSCULAR HEMOGLOBIN (BEAKER) (test 28.1 pg 25.7-32.2 trpb=869) MEAN CORPUSCULAR HEMOGLOBIN CONC (BEAKER) (test 34.0 GM/DL 32.3-36.5 ycmu=910) RED CELL DISTRIBUTION WIDTH (BEAKER) (test 13.2 % 11.6-14.4 gapm=513) PLATELET COUNT (BEAKER) (test rmxb=393) 238 K/CU MM 150-450 MEAN PLATELET VOLUME (BEAKER) (test kvfu=319) 10.6 fL 9.4-12.4 NUCLEATED RED BLOOD CELLS (BEAKER) (test 0 /100 WBC 0-0 kelu=631) NEUTROPHILS RELATIVE PERCENT (BEAKER) (test 75 % infp=941) LYMPHOCYTES RELATIVE PERCENT (BEAKER) (test 19 % aqhp=002) MONOCYTES RELATIVE PERCENT (BEAKER) (test 4 % udbi=232) EOSINOPHILS RELATIVE PERCENT (BEAKER) (test 2 % opdz=273) BASOPHILS RELATIVE PERCENT (BEAKER) (test 0 % bwvq=492) NEUTROPHILS ABSOLUTE COUNT (BEAKER) (test 7.74 K/ L 1.78-5.38 sbps=321) LYMPHOCYTES ABSOLUTE COUNT (BEAKER) (test 1.95 K/ L 1.32-3.57 fmqv=023) MONOCYTES ABSOLUTE COUNT (BEAKER) (test 0.37 K/ L 0.30-0.82 flib=516) EOSINOPHILS ABSOLUTE COUNT (BEAKER) (test 0.16 K/ L 0.04-0.54 fzsz=376) BASOPHILS ABSOLUTE COUNT (BEAKER) (test 0.04 K/ L 0.01-0.08 jsih=564) IMMATURE GRANULOCYTES-RELATIVE PERCENT (BEAKER) 1 % 0-1 (test xxfi=6909) POCT-GLUCOSE [id number] 21:08:00 Test Item Value Reference Range Comments POC-GLUCOSE METER (BEAKER) 133 mg/dL 70-110 TESTED AT [facility] [address] (test ywxa=6045) [facility] [address]
--- OUTSIDE RECORDS SUMMARY | 2019-04-26 14:28 | XMS REPORT ---
[...] End Status Dosage System Date Date Benadryl [facility] [id number] 25 MG Orally Active 1 tablet Allergy every 8 hrs as needed Gabapentin ND [id number] 300 MG Orally December 05, Active 1 capsule Twice a day 2018 before bedtime Results No Known Results Summary Purpose eClinicalWorks Submission
--- OUTSIDE RECORDS SUMMARY | 2019-04-26 14:28 | XMS REPORT ---
:1995 Author Organization eClinicalWorks Care Team Providers Name Role Phone Inna Herring Provider Role Unavailable Allergies No Known Allergies Problems Problem Type Condition Code Onset Dates Condition Status Problem Aspergers' syndrome F84.5 Active Problem Memory deficit R41.3 Active Medications Medication Code System Code Instructions Start End Date Status Dosage Date walking boot [facility] [address] short walking December 12, Active as directed 04-03 boot for ankle 2018 foot fx while up Results No Known Results Summary Purpose [employer] [place] Submission
--- OUTSIDE RECORDS SUMMARY | 2019-04-26 14:28 | XMS REPORT ---
[...] Start End Date Status Dosage Date Benadryl [facility] [address] 25 MG Orally Active 1 tablet Allergy 8-25 every 8 hrs as needed Results No Known Results Summary Purpose eClinicalWorks Submission
[2019-04-26] MEDS ORDERED: TETANUS & DIPHTHERIA TOX,ADULT 0.5 ML VIAL ONE (16:41)
--- NOTE | 2019-04-26 17:40 | RAD REPORT ---
EXAM DESCRIPTION: RAD - Wrist Left 3 View - 04/26/2019 5:30 pm CLINICAL HISTORY: Left wrist pain status post injury FINDINGS: No fracture or dislocation is seen.
--- NOTE | 2019-04-26 18:48 | ER ---
Nurse's Notes [facility] Name: Wicho Adams Age: 23 yrs Sex: Male : 1995 Arrival Date: 04/26/2019 Time: 14:27 Bed 12 Private MD: Diagnosis: Left Arm Laceration Presentation: 04/26 14:41 Presenting complaint: Patient states: I was working on my care last night and had my sg hand slip and be cut on something, pt complaining of pain and swelling with bleeding to the left forearm and wrist. Transition of care: patient was not received from another setting of care. Onset of symptoms was April 26, 2019. Risk Assessment: Do you want to hurt yourself or someone else? Patient reports no desire to harm self or others. Initial Sepsis Screen: Does the patient meet any 2 criteria? No. Patient's initial sepsis screen is negative. Does the patient have a suspected source of infection? No. Patient's initial sepsis screen is negative. Care prior to arrival: None. 14:41 Method Of Arrival: Ambulatory 14:41 Acuity: TAN 4 sg Historical: - Allergies: 14:43 No Known Allergies; sg - PMHx: 14:43 Asperger syndrome; joint issues; sg - PSHx: 14:43 None; sg - Immunization history:: Adult Immunizations up to date. - Social history:: Smoking status: Patient/guardian denies using tobacco. - Ebola Screening: : Patient negative for fever greater than or equal to 101.5 degrees Fahrenheit, and additional compatible Ebola Virus Disease symptoms Patient denies exposure to infectious person Patient denies travel to an Ebola-affected area in the 21 days before illness onset No symptoms or risks identified at this time. Screenin:09 Abuse screen: Denies threats or abuse. Denies injuries from another. Nutritional hb screening: No deficits noted. Tuberculosis screening: No symptoms or risk factors identified. Fall Risk None identified. Assessment: 16:30 General: Appears in no apparent distress. Behavior is calm, cooperative. Pain: Pain hb currently is 4 out of 10 on a pain scale. Neuro: Level of Consciousness is awake, alert, obeys commands, Oriented to person, place, time, situation. Cardiovascular: Capillary refill < 3 seconds Patient's skin is warm and dry. Respiratory: Airway is patent Respiratory effort is even, unlabored, Respiratory pattern is regular, symmetrical. GI: No signs and/or symptoms were reported involving the gastrointestinal system. : No signs and/or symptoms were reported regarding the genitourinary system. EENT: No signs and/or symptoms were reported regarding the EENT system. Derm: multiple superficial abrasions to top of right hand, weeping small amount of serosanguinous fluid. 17:30 Reassessment: Patient appears in no apparent distress at this time. Patient and/or hb family updated on plan of care and expected duration. Pain level reassessed. Patient is alert, oriented x 3, equal unlabored respirations, skin warm/dry/pink. 18:30 Reassessment: Patient appears in no apparent distress at this time. Patient and/or hb family updated on plan of care and expected duration. Pain level reassessed. Patient is alert, oriented x 3, equal unlabored respirations, skin warm/dry/pink. Vital Signs: 14:43 BP 140 / 83; Pulse 87; Resp 16; Temp 97.3; Pulse Ox 97% on R/A; Pain 4/10; sg 16:45 BP 132 / 78; Pulse 88; Resp 15; Pulse Ox 100% on R/A; hb ED Course: 14:27 Patient arrived in ED. rg4 14:42 Triage completed. sg 14:42 Arm band placed on. sg 15:30 Patient has correct armband on for positive identification. Call light in reach. hb 16:23 Mohsen Fairchild PA is PHCP. [facility] 16:23 Cedrick Rees MD is Attending Physician. [facility] 16:43 Karina Hahn, ALEXIA is Primary Nurse. hb 18:37 No provider procedures requiring assistance completed. Patient did not have IV access hb during this emergency room visit. Wound care: to abrasion, located on left hand was cleaned with Hibiclens, dressed with nonstick pad, 4x4s, ROXANNA bandage. Administered Medications: 16:43 Drug: Tetanus-Diphtheria Toxoid Adult 0.5 ml {Rn Lpn Lvn: [employer]. Exp: hb 12/24/2020. Lot #: [id number]. } Route: IM; Site: right deltoid; 17:28 Follow up: Response: No adverse reaction hb Outcome: 18:47 Discharge ordered by . [facility] 18:51 Discharged to home ambulatory. hb 18:51 Condition: stable 18:51 Discharge instructions given to patient, Instructed on discharge instructions, follow up and referral plans. medication usage, wound care, Demonstrated understanding of instructions, follow-up care, medications, Prescriptions given X 2. 18:51 Patient left the ED. hb Signatures: Casimiro Aguilera, RN RN Mohsen Keane PA PA jmm Baxter, Heather, RN RN hb Garcia, Rubi rg4
--- NOTE | 2019-04-26 18:48 | EDPHYS ---
Physician Documentation [facility] Name: Wicho Adams Age: 23 yrs Sex: Male : 1995 Arrival Date: 04/26/2019 Time: 14:27 Bed 12 Private MD: ED Physician Cedirck Rees HPI: 04/26 16:33 This 23 yrs old Male presents to ER via Ambulatory with complaints of Wound jmm Check. 16:33 Patient presents to ED for recheck of: laceration. The affected area is on the left jmm wrist. This is a 23 year old male with a history of Asperger that presents to the ED with complaints of a laceration which occurred yesterday after working under his car. Patient is concerned because the wound continues to bleed. Denies weakness of fever. . Historical: - Allergies: 14:43 No Known Allergies; sg - PMHx: 14:43 Asperger syndrome; joint issues; sg - PSHx: 14:43 None; sg - Immunization history:: Adult Immunizations up to date. - Social history:: Smoking status: Patient/guardian denies using tobacco. - Ebola Screening: : Patient negative for fever greater than or equal to 101.5 degrees Fahrenheit, and additional compatible Ebola Virus Disease symptoms Patient denies exposure to infectious person Patient denies travel to an Ebola-affected area in the 21 days before illness onset No symptoms or risks identified at this time. ROS: 16:33 Constitutional: Negative for fever, chills, and weight loss, Cardiovascular: Negative jmm for chest pain, palpitations, and edema, Respiratory: Negative for shortness of breath, cough, wheezing, and pleuritic chest pain. 16:33 MS/extremity: Positive for injury or acute deformity, laceration. 16:33 All other systems are negative. Exam: 16:33 Constitutional: This is a well developed, well nourished patient who is awake, alert, jmm and in no acute distress. Head/Face: atraumatic. Eyes: EOMI, no conjunctival erythema appreciated ENT: Moist Mucus Membranes Neck: Trachea midline, Supple Chest/axilla: Normal chest wall appearance and motion. Cardiovascular: Regular rate and rhythm. No edema appreciated Respiratory: Normal respirations, no respiratory distress appreciated Abdomen/GI: Non distended, soft Back: Normal ROM 16:33 Musculoskeletal/extremity: patient has full rom of the left wrist, compartments are soft, mild erythema is noted. 16:33 Skin: laceration noted to the left wrist with serosanguinous drainage. There is mild erythema surrounding the laceration.. 16:33 Neuro: Orientation: is normal, Mentation: is normal, Memory: is normal. 16:33 Psych: Behavior/mood is pleasant, cooperative. Vital Signs: 14:43 BP 140 / 83; Pulse 87; Resp 16; Temp 97.3; Pulse Ox 97% on R/A; Pain 4/10; sg 16:45 BP 132 / 78; Pulse 88; Resp 15; Pulse Ox 100% on R/A; hb MDM: 16:33 Patient medically screened. [facility] 18:46 Data reviewed: vital signs, nurses notes. Counseling: I had a detailed discussion with [facility] the patient and/or guardian regarding: the historical points, exam findings, and any diagnostic results supporting the discharge/admit diagnosis, the need for outpatient follow up, to return to the emergency department if symptoms worsen or persist or if there are any questions or concerns that arise at home. 18:46 ED course: Patient is alert and non toxic in appearance in the ED. Due to erythema, [facility] patient is prescribed oral abx and advised to closely follow up with pcp. Patient is otherwise given strict return precautions. Patient understood and agrees with the plan of care. . 04/26 16:34 Order name: Wrist Left (3 View) XRAY [facility] 04/26 17:43 Order name: RAD; Complete Time: 17:58 [facility] 04/26 18:08 Order name: Misc. Order: pressure dressing; Complete Time: 18:36 [facility] Administered Medications: 16:43 Drug: Tetanus-Diphtheria Toxoid Adult 0.5 ml {Certified Coder: [email or web address]. Exp: hb 12/24/2020. Lot #: [id number]. } Route: IM; Site: right deltoid; 17:28 Follow up: Response: No adverse reaction Disposition: 04/26/19 18:47 Discharged to Home. Impression: Left Arm Laceration. - Condition is Stable. - Discharge Instructions: Nonsutured Laceration Care. - Prescriptions for Cephalexin 500 mg Oral Capsule - take 1 capsule by ORAL route every 6 hours for 10 days; 40 capsule. Bactrim DS 800- 160 mg Oral Tablet - take 1 tablet by ORAL route every 12 hours for 10 days; 20 tablet. - Medication Reconciliation Form, Thank You Letter, Antibiotic Education, Prescription Opioid Use form. - Follow up: Private Physician; When: 2 - 3 days; Reason: Recheck today's complaints, Continuance of care, Re-evaluation by your physician. Addendum: 04/28/2019 09:40 Co-signature as Attending Physician, Cedrick Rees MD I agree with the assessment and k dr plan of care. Signatures: Dispatcher [employer] EDMS Casimiro Aguilera, RN RN Cedrick Rees MD MD [facility] Mohsen Fairchild PA PA [facility] Karina Hahn, RN RN hb Corrections: (The following items were deleted from the chart) 04/26 18:51 18:47 04/26/2019 18:47 Discharged to Home. Impression: Left Arm Laceration. Condition hb is Stable. Forms are Medication Reconciliation Form, Thank You Letter, Antibiotic Education, Prescription Opioid Use. Follow up: Private Physician; When: 2 - 3 days; Reason: Recheck today's complaints, Continuance of care, Re-evaluation by your physician. monse
[2019-04-26 21:01] VITALS: TEMP 97.3
[2019-04-26 21:02] VITALS: BP 132/78; O2SAT 100
== END 2019-04-26 18:51 | disposition home or self-care (01) ==
LOC: ER 14:26
DX: S61.512D Laceration without foreign body of left wrist, subsequent encounter (principal); Z23 Encounter for immunization
CPT/HCPCS: 90471; 90714; 99283

== ENCOUNTER 2019-06-19 15:56 | Observation (INO) | payer OTHER ==
[2019-06-19 17:11] LABS: Absolute Lymphocytes (CBC) 1.5 K/uL (0.7-4.9); Basophils % 0.8 % (0-1.3); Hematocrit 42.2 % (39.6-49.0); Lymphocytes % 20.3 % (15.3-44.8); MPV 8.9 fL (7.6-11.3); RBC Red Blood Cell Count 5.15 M/uL (4.33-5.43)
[2019-06-19 17:25] LABS: ALT/SGPT 32 U/L (12-78); AST/SGOT 19 U/L (15-37); Albumin 4.3 g/dL (3.4-5.0); Alkaline Phosphatase 60 U/L (45-117); BUN Blood Urea Nitrogen 9 mg/dL (7-18); Bicarbonate 28 mmol/L (21-32); Bilirubin Direct 0.3 mg/dL (0-0.2); Bilirubin Total 1.3 mg/dL (0.2-1.0); Glucose Level 93 mg/dL (74-106); Protein, Total 7.9 g/dL (6.4-8.2); Sodium Level 140 mmol/L (136-145)
--- NOTE | 2019-06-19 19:02 | RAD REPORT ---
EXAM DESCRIPTION: CT - Abdomen Pelvis W Contrast - 06/19/2019 6:44 pm CLINICAL HISTORY: Abdominal pain. COMPARISON: 2018 TECHNIQUE: Computed axial tomography of the abdomen and pelvis was obtained. 100 cc Isovue-300 is ad ministered intravenously. Oral contrast was given. All CT scans are performed using dose optimization technique as appropriate and may include automated exposure control or mA/KV adjustment according to patient size. FINDINGS: Mild fatty liver The Spleen, pancreas, adrenals and kidneys appear unremarkable. There is no evidence of diverticulitis The appendix extends medially from the cecum. The appendix is thickened with stranding in the adjacen t fat. This is compatible with appendicitis. No free air IMPRESSION: Appendicitis
[2019-06-19] MEDS ORDERED: PIPER/TAZO/NS 3.375gm 3.375 GM/100 ML BAG ONE (19:13)
--- NOTE | 2019-06-19 19:14 | ER ---
Nurse's Notes [facility] Name: Wicho Adams Age: 23 yrs Sex: Male : 1995 Arrival Date: 06/19/2019 Time: 15:59 Bed 26 Private MD: None, None Diagnosis: Acute appendicitis with localized peritonitis Presentation: 06/19 16:01 Presenting complaint: Patient states: RLQ pain started last night. Transition of care: sv patient was not received from another setting of care. Onset of symptoms was June 18, 2019. Risk Assessment: Do you want to hurt yourself or someone else? Patient reports no desire to harm self or others. Care prior to arrival: None. 16:01 Method Of Arrival: Ambulatory sv 16:01 Acuity: TAN 3 sv 17:03 Initial Sepsis Screen: Does the patient meet any 2 criteria? No. Patient's initial js5 sepsis screen is negative. Does the patient have a suspected source of infection? No. Patient's initial sepsis screen is negative. Historical: - Allergies: 16:01 No Known Allergies; sv - Home Meds: 19:22 meloxicam Oral [Active]; mg2 - PMHx: 16:01 Asperger syndrome; joint issues; sv - PSHx: 16:01 None; sv - Immunization history:: Adult Immunizations unknown. - Ebola Screening: : Patient denies exposure to infectious person Patient denies travel to an Ebola-affected area in the 21 days before illness onset No symptoms or risks identified at this time. - Social history:: Smoking status: Patient/guardian denies using tobacco, never smoked. Screenin:01 Abuse screen: Denies threats or abuse. Denies injuries from another. Nutritional js5 screening: No deficits noted. Tuberculosis screening: No symptoms or risk factors identified. Fall Risk IV access (20 points). Assessment: 16:54 General: Appears in no apparent distress. comfortable, Behavior is calm, cooperative. js5 Pain: Complains of pain in abdomen RLQ Pain does not radiate. Pain level that patient reports is acceptable is 2 out of 10 on a pain scale. Quality of pain is described as aching, Pain began gradually, Is continuous. Neuro: Level of Consciousness is awake, alert, obeys commands, Oriented to person, place, time, situation, Appropriate for age. Cardiovascular: No deficits noted. Cardiovascular: Capillary refill < 3 seconds Patient's skin is warm and dry. Respiratory: Airway is patent Trachea midline Respiratory effort is even, unlabored, relaxed, Respiratory pattern is regular, symmetrical. GI: Abd is soft Abdomen is tender to palpation Guarding noted in right lower quadrant. : No signs and/or symptoms were reported regarding the genitourinary system. EENT: No signs and/or symptoms were reported regarding the EENT system. Derm: Skin is intact, is healthy with good turgor, Skin is moist, Skin is pink, warm \T\ dry. normal. Musculoskeletal: Circulation, motion, and sensation intact. 17:04 GI: Bowel sounds present X 4 quads. js5 17:51 Reassessment: No changes from previously documented assessment. Patient and/or family js5 updated on plan of care and expected duration. Pain level reassessed. Patient is alert, oriented x 3, equal unlabored respirations, skin warm/dry/pink. Patient denies pain at this time. 18:50 Reassessment: No changes from previously documented assessment. Patient and/or family js5 updated on plan of care and expected duration. Pain level reassessed. Patient is alert, oriented x 3, equal unlabored respirations, skin warm/dry/pink. pt came back from CT scan. 19:17 Reassessment: provider spoke to the patient about the plan for hospitalization. mg2 19:21 Reassessment: patient has mild pain and refused the medication. mg2 19:54 Reassessment: report called to ALEXIA Landry. OR Team are on their way. patient informed. mg2 Vital Signs: 16:01 BP 145 / 90; Pulse 82; Resp 18; Temp 98.7; Pulse Ox 98% ; Weight 90.72 kg; Height 5 ft. sv 10 in. (177.80 cm); Pain 3/10; 17:07 BP 118 / 82; Pulse 93; Resp 20; Pulse Ox 94% on R/A; js5 18:00 BP 125 / 78; Pulse 83; Resp 19; Pulse Ox 94% ; js5 19:22 BP 109 / 91; Pulse 76; Resp 18; Pulse Ox 97% on R/A; mg2 16:01 Body Mass Index 28.70 (90.72 kg, 177.80 cm) sv ED Course: 15:59 Patient arrived in ED. ag5 16:00 None, None is Private Physician. ag5 16:01 Triage completed. sv 16:02 Arm band placed on. sv 16:27 En Muñoz PA is PHCP. jr8 16:27 Cedrick Rees MD is Attending Physician. jr8 16:33 Junior Landrum, ALEXIA is Primary Nurse. mg2 17:02 Patient has correct armband on for positive identification. Placed in gown. Call light js5 in reach. Side rails up X2. Door closed. 17:02 No provider procedures requiring assistance completed. Inserted saline lock: 20 gauge js5 in right antecubital area, using aseptic technique. Blood collected. 18:44 CT Abd/Pelvis - IV Contrast Only In Process Unspecified. EDMS 19:13 Santino Sharma MD is Hospitalizing Provider. jr8 19:53 Patient admitted, IV remains in place. mg2 Administered Medications: 19:17 Drug: Zosyn 3.375 grams Route: IVPB; Infused Over: 60 mins; Site: right antecubital; mg2 20:06 Follow up: Response: No adverse reaction; IV Status: Infusion continued upon admission mg2 20:08 Not Given (Patient Refused): morphine 4 mg IVP once; RASS on ADMIN: Combtv4, Very mg2 Agttd3, Agttd2, Rstlss1, AlertClm0, Drwsy-1, Lt Sdtn-2, Mod Sdtn-3, Dp Sdtn-4, UnArsble-5 20:08 Not Given (Patient Refused): Zofran 4 mg IVP once; over 2 minutes mg2 Outcome: 19:13 Decision to Hospitalize by Provider. jr8 20:11 Admitted to OR accompanied by nurse, via wheelchair, with chart, Report called to [facility] ALEXIA Sanchez 20:11 Condition: stable 20:11 Instructed on the need for admit, Demonstrated understanding of instructions. 20:12 Patient left the ED. mg2 Signatures: Dispatcher [employer] EDMA Charisma Ruth RN RN En Muñoz PA PA jr8 Junior Landrum, ALEXIA RN [facility] Danie Landaverde ag5 Mary Strange js5 Corrections: (The following items were deleted from the chart) 19:56 19:54 Reassessment: report called to Gris, RN. mg2 mg2
--- NOTE | 2019-06-19 19:14 | EDPHYS ---
Physician Documentation [facility] Name: Wicho Adams Age: 23 yrs Sex: Male : 1995 Arrival Date: 06/19/2019 Time: 15:59 Bed 26 Private MD: None, None ED Physician Cedrick Rees HPI: 06/19 18:38 This 23 yrs old Male presents to ER via Ambulatory with complaints of jr8 Abdominal Pain. 18:38 The patient presents with abdominal pain right lower quadrant. Onset: The jr8 symptoms/episode began/occurred acutely, today. The symptoms do not radiate. Associated signs and symptoms: Pertinent positives: diarrhea. The symptoms are described as dull. Modifying factors: The symptoms are alleviated by nothing, the symptoms are aggravated by movement. Severity of pain: At its worst the pain was mild in the emergency department the pain is unchanged. The patient has not experienced similar symptoms in the past. The patient has not recently seen a physician. Historical: - Allergies: 16:01 No Known Allergies; sv - Home Meds: 19:22 meloxicam Oral [Active]; mg2 - PMHx: 16:01 Asperger syndrome; joint issues; sv - PSHx: 16:01 None; sv - Immunization history:: Adult Immunizations unknown. - Ebola Screening: : Patient denies exposure to infectious person Patient denies travel to an Ebola-affected area in the 21 days before illness onset No symptoms or risks identified at this time. - Social history:: Smoking status: Patient/guardian denies using tobacco, never smoked. ROS: 18:38 Eyes: Negative for injury, pain, redness, and discharge, ENT: Negative for injury, jr8 pain, and discharge, Neck: Negative for injury, pain, and swelling, Cardiovascular: Negative for chest pain, palpitations, and edema, Respiratory: Negative for shortness of breath, cough, wheezing, and pleuritic chest pain, Back: Negative for injury and pain, MS/Extremity: Negative for injury and deformity, Skin: Negative for injury, rash, and discoloration, Neuro: Negative for headache, weakness, numbness, tingling, and seizure. 18:38 Abdomen/GI: Positive for abdominal pain, diarrhea, Negative for nausea, vomiting, abdominal cramps, abdominal distension, anorexia, dysphagia, hematemesis, black/tarry stool, rectal pain, rectal bleeding, bowel incontinence, flatulence. Exam: 18:38 Eyes: Pupils equal round and reactive to light, extra-ocular motions intact. Lids and jr8 lashes normal. Conjunctiva and sclera are non-icteric and not injected. Cornea within normal limits. Periorbital areas with no swelling, redness, or edema. ENT: Nares patent. No nasal discharge, no septal abnormalities noted. Tympanic membranes are normal and external auditory canals are clear. Oropharynx with no redness, swelling, or masses, exudates, or evidence of obstruction, uvula midline. Mucous membranes moist. Neck: Trachea midline, no thyromegaly or masses palpated, and no cervical lymphadenopathy. Supple, full range of motion without nuchal rigidity, or vertebral point tenderness. No Meningismus. Cardiovascular: Regular rate and rhythm with a normal S1 and S2. No gallops, murmurs, or rubs. Normal PMI, no JVD. No pulse deficits. Respiratory: Lungs have equal breath sounds bilaterally, clear to auscultation and percussion. No rales, rhonchi or wheezes noted. No increased work of breathing, no retractions or nasal flaring. Back: No spinal tenderness. No costovertebral tenderness. Full range of motion. Skin: Warm, dry with normal turgor. Normal color with no rashes, no lesions, and no evidence of cellulitis. MS/ Extremity: Pulses equal, no cyanosis. Neurovascular intact. Full, normal range of motion. Neuro: Awake and alert, GCS 15, oriented to person, place, time, and situation. Cranial nerves II-XII grossly intact. Motor strength 5/5 in all extremities. Sensory grossly intact. Cerebellar exam normal. Normal gait. 18:38 Abdomen/GI: Inspection: abdomen appears normal, Bowel sounds: active, all quadrants, Palpation: soft, in all quadrants, mild abdominal tenderness, in the suprapubic area and right lower quadrant, mass, is not appreciated, rebound tenderness, is not appreciated, voluntary guarding, is not appreciated, involuntary guarding, is not appreciated, no appreciated organomegaly, Indicators: McBurney's point is not tender, Benson's sign is negative, Rovsing's sign is negative, Liver: tenderness, is not appreciated. Vital Signs: 16:01 BP 145 / 90; Pulse 82; Resp 18; Temp 98.7; Pulse Ox 98% ; Weight 90.72 kg; Height 5 ft. sv 10 in. (177.80 cm); Pain 3/10; 17:07 BP 118 / 82; Pulse 93; Resp 20; Pulse Ox 94% on R/A; js5 18:00 BP 125 / 78; Pulse 83; Resp 19; Pulse Ox 94% ; js5 19:22 BP 109 / 91; Pulse 76; Resp 18; Pulse Ox 97% on R/A; mg2 16:01 Body Mass Index 28.70 (90.72 kg, 177.80 cm) sv MDM: 16:47 Patient medically screened. jr8 19:12 Data reviewed: vital signs, nurses notes, lab test result(s), radiologic studies, CT jr8 scan. Data interpreted: Pulse oximetry: on room air is 95 %. Interpretation: normal. Counseling: I had a detailed discussion with the patient and/or guardian regarding: the historical points, exam findings, and any diagnostic results supporting the discharge/admit diagnosis, lab results, radiology results, the need for further work-up and treatment in the hospital. Physician consultation: Santino Sharma MD was called at 19:12, was contacted at 19:12, regarding admission, to the medical/surgical unit. to the operating room, and will see patient. 06/19 16:27 Order name: Basic Metabolic Panel; Complete Time: 17:33 8 06/19 16:27 Order name: CBC with Diff; Complete Time: 17:33 jr8 06/19 16:27 Order name: Creatinine for Radiology; Complete Time: 17:33 jr8 06/19 16:27 Order name: Hepatic Function; Complete Time: 17:33 jr8 06/19 16:47 Order name: CT Abd/Pelvis - IV Contrast Only; Complete Time: 19:05 jr8 06/19 16:27 Order name: IV Saline Lock; Complete Time: 17:15 jr8 06/19 16:27 Order name: Labs collected and sent; Complete Time: 17:15 jr8 Administered Medications: 19:17 Drug: Zosyn 3.375 grams Route: IVPB; Infused Over: 60 mins; Site: right antecubital; mg2 20:06 Follow up: Response: No adverse reaction; IV Status: Infusion continued upon admission mg2 20:08 Not Given (Patient Refused): morphine 4 mg IVP once; RASS on ADMIN: Combtv4, Very mg2 Agttd3, Agttd2, Rstlss1, AlertClm0, Drwsy-1, Lt Sdtn-2, Mod Sdtn-3, Dp Sdtn-4, UnArsble-5 20:08 Not Given (Patient Refused): Zofran 4 mg IVP once; over 2 minutes mg2 Disposition: 06/20 07:20 Co-signature as Attending Physician, Cedrick Rees MD I agree with the assessment and kdr plan of care. Disposition: 06/19/19 19:13 Hospitalization ordered by Santino Sharma for Observation. Preliminary diagnosis is Acute appendicitis with localized peritonitis. - Bed requested for Telemetry/MedSurg (observation). - Status is Observation. mg2 - Condition is Stable. - Problem is new. - Symptoms are unchanged. UTI on Admission? No Signatures: Dispatcher [employer] EDMS Charisma Ruth RN RN Karla Randall RN RN Cedrick Rees MD MD [facility] En Muñoz PA PA jr8 Junior Landrum RN RN mg2 Mary Strange js5 Corrections: (The following items were deleted from the chart) 06/19 19:44 19:13 Hospitalization Ordered by Santino Sharma MD for Observation. Preliminary dw diagnosis is Acute appendicitis with localized peritonitis. Bed requested for Telemetry/MedSurg (observation). Status is Observation. Condition is Stable. Problem is new. Symptoms are unchanged. UTI on Admission? No. jr8 20:12 19:44 06/19/2019 19:13 Hospitalization Ordered by Santino Sharma MD for Observation. mg2 Preliminary diagnosis is Acute appendicitis with localized peritonitis. Bed requested for Telemetry/MedSurg (observation). Status is Observation. Condition is Stable. Problem is new. Symptoms are unchanged. UTI on Admission? No. dw
[2019-06-19] MEDS ORDERED: ONDANSETRON 4 MG/2 ML VIAL ONE ×2 (19:20→20:19)
[2019-06-19] MEDS ORDERED: MORPHINE 4 MG/ML SYR ONE (19:20)
[2019-06-19] MEDS ORDERED: PROPOFOL 200 MG/20 ML VIAL IV ONE (20:08)
[2019-06-19] MEDS ORDERED: FENTANYL CITR 100 MCG/2 ML ONE (20:08)
[2019-06-19] MEDS ORDERED: ROCURONIUM 50 MG/5 ML VIAL IV ONE (20:08)
[2019-06-19] MEDS ORDERED: LIDOCAINE 2% MPF 5 ML VIAL ONE (20:08)
[2019-06-19] MEDS ORDERED: Ringers Lactate 1,000 ML IV ONE (20:13)
[2019-06-19] MEDS ORDERED: dexAMETHasone 10 MG/ML VIAL ONE (20:18)
[2019-06-19] MEDS ORDERED: KETOROLAC 30 MG/ML INJ ONE (20:19)
[2019-06-19] MEDS: D5 0.45 NS 1,000 ML IV SCH ×2 (20:41→22:40)
[2019-06-19] MEDS ORDERED: ONDANSETRON 4 MG/2 ML VIAL IV PRN (20:41)
[2019-06-19] MEDS ORDERED: MORPHINE 4 MG/ML SYR IV PRN (20:41)
[2019-06-19] MEDS ORDERED: GLYCOPYRROLATE 0.2 MG/ML SYR ONE (21:16)
[2019-06-19] MEDS ORDERED: NEOSTIGMINE 1 MG/ML -5 ML ONE (21:17)
--- NOTE | 2019-06-19 21:35 | P.BOP ---
Preoperative diagnosis: acute appendicitis Postoperative diagnosis: same Primary procedure: Laparoscopic appendectomy Estimated blood loss: <10cc Specimen: ryann Findings: as above Anesthesia: General Complications: None Transferred to: Recovery Room Condition: Good
[2019-06-19] MEDS ORDERED: HYDROCODONE/APAP 5/325 MG TAB PO PRN (21:36)
[2019-06-19] MEDS: HYDROMORPHONE HCL 1 MG/ML INJ ONE ×2 (22:05→22:10)
[2019-06-19] MEDS: MEPERIDINE HCL 25 MG/0.5 ML ONE ×2 (22:11→22:16)
[2019-06-19 23:03] VITALS: BMI 30.8
--- NOTE | 2019-06-20 00:30 | OP ---
Date of Procedure: 06/19/2019 Surgeon: Santino Sharma MD Digital Content Manager: None. Preoperative Diagnosis: Acute appendicitis. Postoperative Diagnosis: Acute appendicitis. Procedure: Laparoscopic appendectomy. Estimated Blood Loss: Less than 10 mL. Findings: Acute appendicitis. Indications: This is the case of a 23-year-old patient who comes to us with above diagnosis. Fully explained the benefits, alternatives, and risks of laparoscopic, possible open appendectomy, which in clude, but are not limited to infection, bleeding, damage to adjacent structures, anesthesia complica tions, MT, and even . He also understands this may not relieve any symptoms, he might need more than one surgical intervention. He understood and signed a consent. Description Of Procedure: Patient was brought to the operating room, placed in supine position. Ane sthesia was done without complication. Abdominal area was prepped and draped in a sterile fashion. Marcaine 0.5% was injected for local anesthetic, followed by sharp incision of the skin in the infrau mbilical region. Incision was carried down to fascia, which was opened under direct vision. Periton eum was encountered, opened under direct vision. Vicryl #1 placed inside of the fascia. Tamera troc ar was carefully introduced. No bleeding was obtained. I placed 2 more trocars, 5 mm each one of th em in the suprapubic left lower quadrant under direct visualization. This allowed me to visualize th e area of the appendix which was inflamed. The base of the appendix seems to be spared, so we create d a window in the base of the appendix, transected that with an Endo-NINA 45 mm 3.5, and the mesoappen miguel with an Endo-NINA 45 mm 2.5. Further hemostasis was obtained with the help of hemoclips. No gina l leak. No bleeding. Appendix removed from abdominal cavity using an EndoCatch through the umbilica l incision. The area was inspected once again after profuse irrigation and suction. No bleeding. N o bowel leak. At that moment, I proceeded to remove the trocars under direct vision. Deflated the p neumoperitoneum. Closed the fascia with #1 Vicryl. Irrigated subcutaneous tissue, closed that with 3-0 chromic, and the skin with romie. Sponge count and instrument counts were correct. Patient to lerated the procedure well. Patient was sent to recovery in stable condition. HM/MODL Voice ID: [id number] Report ID: [id number]
--- NOTE | 2019-06-20 01:00 | HP ---
Date of Admission: 06/19/2019 Diagnosis: Acute appendicitis. History: This is the case of a 23-year-old patient, who comes to us with periumbilical right lower q uadrant tenderness associated with nausea and vomiting. It has been about 1 day in duration. He den ies any recent travel out of the country. He denies any family members sick at home. Denies any dys uria, hematuria, hematochezia, or melena. He decided to come to the ER when he noticed the pain was not getting better. Past Medical History: Asperger, although he takes his own decisions. He has some joint issues on ex tremities. Past Surgical History: None. Medications: Meloxicam. Allergies: NONE. Family History: Noncontributory. Physical Examination: General: Patient is awake, alert, and oriented x3. Pupils are equal and reactive, anicteric. Neck: Supple. Chest: Clear. Abdomen: Right lower quadrant tenderness with guarding and rebound. Rovsing sign positive. Psoas s ign positive. Rectal: Deferred. Extremities: Good capillary refill. Neuro: Cranial nerves 2 through 12 grossly within normal limits. CAT scan of abdomen and pelvis shows as per Dr. Salcido radiologist, immediately from the cecum the a ppendix is thickening and stranding to adjacent fat compatible with acute appendicitis. No free air. Laboratory Data: WBC count of 7.4 with hemoglobin of 14.7, neutrophils 61.8. Sodium is 140, potassi um 4.0, total bilirubin of 1.3, albumin is 4.3. Assessment: 23 years old patient comes to us stating that he has pain in the right lower quadrant. A CAT scan was done showing acute appendicitis. He has also clinical symptoms for it. He is very co operative, he has answered all of the questions that we asked. Oriented to time, person, and place. He says he is able to sign all his documentations even though he suffers from mild Asperger as per t he clinical history. Right now he is in the emergency, OR was called since the patient will need ryann endectomy. He was fully explained the benefits, alternatives, and risks of laparoscopic, possible op en appendectomy, which include, but are not limited to infection, bleeding, damage to adjacent struct ures, anesthesia complication, negative appendix, VT, and even . He also understands this may n ot relieve any of his symptoms. He might need more than one surgical intervention. He understood, s igned a consent. JANI Voice ID: [id number]
[2019-06-20] MEDS ORDERED: PIPER/TAZO/NS 3.375gm 3.375 GM/100 ML BAG ONE (01:18)
[2019-06-20] MEDS: PIPER/TAZO/NS 3.375gm 3.375 GM/100 ML BAG IVPB SCH ×2 (02:06→10:00)
[2019-06-20 05:20] VITALS: O2SAT 97
[2019-06-20 05:59] LABS: Absolute Lymphocytes (CBC) 0.5 K/uL (0.7-4.9); Basophils % 0.1 % (0-1.3); Lymphocytes % 5.5 % (15.3-44.8); MPV 9.1 fL (7.6-11.3)
[2019-06-20] MEDS ORDERED: INFLUENZA VACCINE (for 3y+) 0.5 ML DOSE IMVAC ONE (06:00)
[2019-06-20] MEDS: D5 0.45 NS 1,000 ML IV SCH ×2 (06:19→12:00)
[2019-06-20 06:25] LABS: BUN Blood Urea Nitrogen 10 mg/dL (7-18); Bicarbonate 20 mmol/L (21-32); Glucose Level 152 mg/dL (74-106); Potassium 4.6 mmol/L (3.5-5.1); Sodium Level 137 mmol/L (136-145)
[2019-06-20] MEDS ORDERED: DIPHENHYDRAMINE 25 MG TAB/CAP PO ONE (07:00)
[2019-06-20 08:53] LABS: Platelet Estimate ADEQ; Urine White Blood Cell Casts OK
[2019-06-20 08:54] LABS: Blood Morphology Comment NOT SEEN (NOT SEEN)
[2019-06-20 13:17] LABS: Urine Appearance CLEAR; Urine Bilirubin NEGATIVE (NEG); Urine Blood NEGATIVE (NEG); Urine Color YELLOW; Urine Glucose NEGATIVE (NEG); Urine Protein NEGATIVE (NEG); Urine Specific Gravity <=1.005 (1.005-1.030); Urine Urobilinogen 0.2 mg/dL (0.2-1.0); Urine pH 6.5 (5.0-7.0)
[2019-06-20 13:53] LABS: Urine Bacteria <20 /HPF (NONE SEEN); Urine Culture Reflex Order NOT NEEDED; Urine RBC <5 /HPF (NONE SEEN)
[2019-06-20 14:04] VITALS: BP 108/58; TEMP 97.4
--- NOTE | 2019-06-20 18:07 | P.DS ---
Admission Date: 06/19/19 Discharge Date: 06/20/19 Disposition: ROUTINE DISCHARGE Discharge Condition: GOOD Vital Signs/Physical Exam: Temp Pulse Resp BP Pulse Ox 97.4 F 70 16 108/58 L 98 06/20/19 12:00 06/20/19 12:00 06/20/19 12:00 06/20/19 12:00 06/20/19 12:00 General: Alert, In no apparent distress, Oriented x3, Cooperative HEENT: PERRLA, EOMI Neck: Supple Respiratory: Normal air movement Cardiovascular: No edema Gastrointestinal: Soft and benign Musculoskeletal: No erythema, No tenderness, No warmth Integumentary: No rashes Laboratory Data at Discharge: WBC 9.9 K/uL (4.3-10.9) D 06/20/19 05:04 Hgb 14.4 g/dL (13.6-17.9) 06/20/19 05:04 Hct 41.0 % (39.6-49.0) 06/20/19 05:04 Plt Count 179 K/uL (152-406) 06/20/19 05:04 Sodium 137 mmol/L (136-145) 06/20/19 05:04 Potassium 4.6 mmol/L (3.5-5.1) 06/20/19 05:04 BUN 10 mg/dL (7-18) 06/20/19 05:04 Creatinine 1.01 mg/dL (0.55-1.3) 06/20/19 05:04 Glucose 152 mg/dL (74-106) H 06/20/19 05:04 Total Bilirubin 1.3 mg/dL (0.2-1.0) H 06/19/19 16:40 AST 19 U/L (15-37) 06/19/19 16:40 ALT 32 U/L (12-78) 06/19/19 16:40 Alkaline Phosphatase 60 U/L (45-117) 06/19/19 16:40 Home Medications: Diphenhydramine HCl [Benadryl Allergy] 25 mg PO DAILYPRN PRN 06/19/19 Codeine/APAP [Tylenol W/Codeine #3 tab] 1 tab PO Q4HP PRN #30 tab 06/20/19 Sulfamethoxazole/Trimethoprim [Bactrim Ds Tablet] 1 each PO BID #10 tablet 06/20 New Medications: Codeine/APAP [Tylenol W/Codeine #3 tab] 1 tab PO Q4HP PRN #30 tab PRN Reason: Pain Sulfamethoxazole/Trimethoprim [Bactrim Ds Tablet] 1 each PO BID #10 tablet Patient Discharge Instructions: keep area dry for 24h then may remove dressing and shower. Diet: AHA Activity: No lifting more than 10 lbs Followup: Santino Sharma MD [ACTIVE - CAN ADMIT] - 1 Week
--- OUTSIDE RECORDS SUMMARY | 2019-06-23 04:26 | XMS REPORT ---
:1995 Author Organization [employer] Care Team Providers Name Role Phone Inna Herring Provider Role Unavailable Allergies No Known Allergies Problems Problem Type Condition Code Onset Dates Condition Status Problem Aspergers' syndrome F84.5 Active Problem Memory deficit R41.3 Active Medications Medication Code System Code Instructions Start End Date Status Dosage Date walking boot [facility] [id number] short walking December 12, Active as directed 04-03 boot for ankle 2018 foot fx while up Results No Known Results Summary Purpose [employer] Submission
--- OUTSIDE RECORDS SUMMARY | 2019-06-23 04:26 | XMS REPORT ---
:1995 [facility] Address [address] [place] [address] Care Team Providers Name Role Phone ELSI [...] ID: 1 VIEW, NON 09:24:00 exam:->pneumothoraxShould this [phone] Chest one view DEPT be performed at [...] limits. The bones appear intact. Signed: [facility] Verified Date/Time: 04/25/2018 09:24:12 Reading Location: [facility] Radiology Reading Room MIN B12 AND FOLATE 2018-04-25 02:48:00 Test Item Value Reference Range Comments VITAMIN B12 (BEAKER) (test cqor=131) < pg/mL 213-816 FOLATE (BEAKER) (test bqtq=169) 2.4 ng/mL >=7.0 VANCOMYCIN LEVEL, [id number] 02:10:00 Test Item Value Reference Range Comments VANCOMYCIN TROUGH (BEAKER) (test weiw=470) 8.6 ug/mL 10.0-20.0 CT, CHEST, WITH [id number] 12:29:00Left pneumothorax and pneumediastinum with pneumoperitoneum and [...] abdomen, and visualized right thigh. Signed: Shemar Ramseyort Verified Date/Time: 04/24/2018 12:29:48 Reading Location: [facility] B1 C013Y CT Body Reading Room CT, [id number] 12:29:00Left pneumothorax and pneumediastinum with pneumoperitoneum and [...] MDReport Verified Date/Time: 04/24/2018 12:29:48 Reading Location: [facility] B1 C013Y CT Body Reading Room RAD, CHEST, 1 VIEW, NON [id number] 07:33:00Reason for exam:->spontaneous PTX, pneumomediastinumShould this be [...] MDReport Verified Date/Time: 04/24/2018 07:33:30 Reading Location: [facility] Radiology Reading Room HEPATIC FUNCTION [id number] 05:47:00 Test Item Value Reference Range Comments TOTAL PROTEIN (BEAKER) (test tyaf=008) 7.0 gm/dL 6.0-8.3 ALBUMIN (BEAKER) (test ehrg=0365) 4.1 g/dL 3.5-5.0 BILIRUBIN TOTAL (BEAKER) (test fgox=900) 1.7 mg/dL 0.2-1.2 BILIRUBIN DIRECT (BEAKER) (test njib=676) 0.6 mg/dL 0.1-0.5 ALKALINE PHOSPHATASE (BEAKER) (test jnjg=401) 46 U/L 40-150 AST (SGOT) (BEAKER) (test uxqe=852) 12 U/L 5-34 ALT (SGPT) (BEAKER) (test edjm=650) 15 U/L 6-55 BASIC METABOLIC [id number] 05:47:00 Test Item Value Reference Range Comments SODIUM (BEAKER) (test 137 meq/L 136-145 iwla=436) POTASSIUM (BEAKER) (test 4.1 meq/L 3.5-5.1 oquc=882) CHLORIDE (BEAKER) (test 105 meq/L 98-107 znkw=654) CO2 (BEAKER) (test 25 meq/L 22-29 ytsf=229) BLOOD UREA NITROGEN 8 mg/dL 7-21 (BEAKER) (test wvon=162) CREATININE (BEAKER) (test 0.95 mg/dL 0.57-1.25 fayw=891) GLUCOSE RANDOM (BEAKER) 89 mg/dL 70-105 (test wjwk=997) CALCIUM (BEAKER) (test 9.7 mg/dL 8.4-10.2 fjwi=441) EGFR (BEAKER) (test 98 mL/min/1.73 sq m ESTIMATED GFR IS NOT lrhz=7631) ACCURATE CREATININE CLEARANCE IN PREDICTING GLOMERULAR FILTRATION RATE. ESTIMATED GFR IS NOT APPLICABLE FOR DIALYSIS PATIENTS. PROTHROMBIN TIME/[id number] 05:42:00 Test Item Value Reference Range Comments PROTIME (BEAKER) (test uysv=590) 15.9 seconds 11.7-14.7 INR (BEAKER) (test fojj=849) 1.3 <=5.9 RECOMMENDED COUMADIN/WARFARIN INR THERAPY RANGESSTANDARD DOSE: 2.0 - 3.0 Includes: PROPHYLAXIS forvenous thrombosis, systemic embolization; TREATMENT for venous thrombosis and/or pulmonary embolus.HIGH RISK: Target INR is 2.5-3.5 for patients with mechanical heart valves.CBC W/PLT COUNT & AUTO [id number] 05:28:00 Test Item Value Reference Range Comments WHITE BLOOD CELL COUNT (BEAKER) (test vfqi=835) 7.7 K/ L 3.5-10.5 RED BLOOD CELL COUNT (BEAKER) (test solp=359) 5.27 M/ L 4.63-6.08 HEMOGLOBIN (BEAKER) (test ikwm=188) 14.5 GM/DL 13.7-17.5 HEMATOCRIT (BEAKER) (test rgzs=423) 43.6 % 40.1-51.0 MEAN CORPUSCULAR VOLUME (BEAKER) (test zujs=869) 82.7 fL 79.0-92.2 MEAN CORPUSCULAR HEMOGLOBIN (BEAKER) (test 27.5 pg 25.7-32.2 acfa=090) MEAN CORPUSCULAR HEMOGLOBIN CONC (BEAKER) (test 33.3 GM/DL 32.3-36.5 ilra=765) RED CELL DISTRIBUTION WIDTH (BEAKER) (test 13.1 % 11.6-14.4 awwr=132) PLATELET COUNT (BEAKER) (test bavr=217) 216 K/CU MM 150-450 MEAN PLATELET VOLUME (BEAKER) (test vtkd=655) 10.3 fL 9.4-12.4 NUCLEATED RED BLOOD CELLS (BEAKER) (test 0 /100 WBC 0-0 naxx=616) NEUTROPHILS RELATIVE PERCENT (BEAKER) (test 76 % ligy=781) LYMPHOCYTES RELATIVE PERCENT (BEAKER) (test 17 % ydnr=616) MONOCYTES RELATIVE PERCENT (BEAKER) (test 5 % wkpp=053) EOSINOPHILS RELATIVE PERCENT (BEAKER) (test 2 % jzhx=079) BASOPHILS RELATIVE PERCENT (BEAKER) (test 0 % edyk=118) NEUTROPHILS ABSOLUTE COUNT (BEAKER) (test 5.83 K/ L 1.78-5.38 plwu=973) LYMPHOCYTES ABSOLUTE COUNT (BEAKER) (test 1.30 K/ L 1.32-3.57 riid=231) MONOCYTES ABSOLUTE COUNT (BEAKER) (test 0.35 K/ L 0.30-0.82 kfpg=976) EOSINOPHILS ABSOLUTE COUNT (BEAKER) (test 0.17 K/ L 0.04-0.54 ngce=326) BASOPHILS ABSOLUTE COUNT (BEAKER) (test 0.02 K/ L 0.01-0.08 ahme=881) IMMATURE GRANULOCYTES-RELATIVE PERCENT (BEAKER) 0 % 0-1 (test orxk=0894) RAPID DRUG SCREEN, [id number] 13:53:00 Test Item Value Reference Range Comments BARBITURATE URINE (BEAKER) (test zlrl=933) Negative Negative BENZODIAZEPINE SCREEN URINE (BEAKER) (test Negative Negative iyrk=582) COCAINE (METAB.) SCREEN (BEAKER) (test siie=7497) Negative Negative METHADONE SCREEN (BEAKER) (test ljfp=1072) Negative Negative OPIATE SCREEN URINE (BEAKER) (test qoud=611) Negative Negative CANNABINOID SCREEN URINE (BEAKER) (test cjia=264) Negative Negative AMPH/METHAMPH SCREEN (BEAKER) (test wiwc=8804) Negative Negative PHENCYCLIDINE SCREEN URINE (BEAKER) (test vpsm=758) Negative Negative OXYCODONE SCREEN URINE (BEAKER) (test szis=6611) Negative Negative DRUG CUTOFF CONC.Cocaine 300 ng/mL Cannabinoid 50 ng/mL Benzodiazepine 200 ng/mLBarbiturate 200 ng/ mLPhencyclidine 25 ng/mLOpiate 300 ng/mLMethadone 300 ng/mLAmphetamine/ 1000 ng/mL MethamphetamineOxycodone 300 ng/mLThis assay provides an unconfirmed qualitative test result for the clinical management of patients in emergency situations. Chain of custody not maintained. Some ymsf-tpg-mwzrmxa medications, as well as adulterants, may cause inaccurate results. Clinical correlation should be applied. A more comprehensive drug screen or confirmation of a detected drug may be performed upon request.[id number] 13:27:00 Test Item Value Reference Range Comments ALPHA-1 ANTITRYPSIN (BEAKER) 169.80 mg/dL 90.00-200.00 Specimen slightly hemolyzed (test bkxl=644) [id number] 12:53:00 Test Item Value Reference Range Comments HOMOCYSTEINE (BEAKER) (test ecmi=580) 40.2 umol/L 5.1-15.4 HEPATIC FUNCTION [id number] 12:38:00 Test Item Value Reference Range Comments TOTAL PROTEIN (BEAKER) (test mllx=165) 7.5 gm/dL 6.0-8.3 ALBUMIN (BEAKER) (test kujp=8038) 4.5 g/dL 3.5-5.0 BILIRUBIN TOTAL (BEAKER) (test ohcb=688) 1.8 mg/dL 0.2-1.2 BILIRUBIN DIRECT (BEAKER) (test jded=772) 0.8 mg/dL 0.1-0.5 ALKALINE PHOSPHATASE (BEAKER) (test wtsv=983) 52 U/L 40-150 AST (SGOT) (BEAKER) (test xveu=556) 12 U/L 5-34 ALT (SGPT) (BEAKER) (test wjjd=272) 14 U/L 6-55 RAD, CHEST, 1 VIEW, NON [id number] 09:53:00Reason for exam:-> pneumothoraxShould this be performed [...] osseous abnormality is identified. Signed: Edvin Garcia MDReport Verified Date/Time: 04/23/2018 09:53:45 Reading Location: [facility] Radiology Reading Room BASIC METABOLIC [id number] 05:54:00 Test Item Value Reference Range Comments SODIUM (BEAKER) (test 139 meq/L 136-145 pttu=734) POTASSIUM (BEAKER) (test 4.0 meq/L 3.5-5.1 fbmn=733) CHLORIDE (BEAKER) (test 106 meq/L 98-107 zyfh=917) CO2 (BEAKER) (test 26 meq/L 22-29 hqoe=936) BLOOD UREA NITROGEN 6 mg/dL 7-21 (BEAKER) (test nmac=298) CREATININE (BEAKER) (test 0.90 mg/dL 0.57-1.25 husi=178) GLUCOSE RANDOM (BEAKER) 102 mg/dL 70-105 (test iqga=915) CALCIUM (BEAKER) (test 9.5 mg/dL 8.4-10.2 dkqq=264) EGFR (BEAKER) (test 105 mL/min/1.73 sq m ESTIMATED GFR IS NOT fvya=4456) ACCURATE CREATININE CLEARANCE IN PREDICTING GLOMERULAR FILTRATION RATE. ESTIMATED GFR IS NOT APPLICABLE FOR DIALYSIS PATIENTS. CBC W/PLT COUNT & AUTO [id number] 23:44:00 Test Item Value Reference Range Comments WHITE BLOOD CELL COUNT (BEAKER) (test cxsf=895) 10.3 K/ L 3.5-10.5 RED BLOOD CELL COUNT (BEAKER) (test wdky=222) 4.94 M/ L 4.63-6.08 HEMOGLOBIN (BEAKER) (test vjlk=023) 13.9 GM/DL 13.7-17.5 HEMATOCRIT (BEAKER) (test yxnz=386) 40.9 % 40.1-51.0 MEAN CORPUSCULAR VOLUME (BEAKER) (test mdzj=714) 82.8 fL 79.0-92.2 MEAN CORPUSCULAR HEMOGLOBIN (BEAKER) (test 28.1 pg 25.7-32.2 iajn=617) MEAN CORPUSCULAR HEMOGLOBIN CONC (BEAKER) (test 34.0 GM/DL 32.3-36.5 ftfq=250) RED CELL DISTRIBUTION WIDTH (BEAKER) (test 13.2 % 11.6-14.4 tzdh=690) PLATELET COUNT (BEAKER) (test vpih=836) 238 K/CU MM 150-450 MEAN PLATELET VOLUME (BEAKER) (test guiq=800) 10.6 fL 9.4-12.4 NUCLEATED RED BLOOD CELLS (BEAKER) (test 0 /100 WBC 0-0 umvj=644) NEUTROPHILS RELATIVE PERCENT (BEAKER) (test 75 % ttcq=867) LYMPHOCYTES RELATIVE PERCENT (BEAKER) (test 19 % zkai=459) MONOCYTES RELATIVE PERCENT (BEAKER) (test 4 % rexi=796) EOSINOPHILS RELATIVE PERCENT (BEAKER) (test 2 % eiiu=630) BASOPHILS RELATIVE PERCENT (BEAKER) (test 0 % eqqr=024) NEUTROPHILS ABSOLUTE COUNT (BEAKER) (test 7.74 K/ L 1.78-5.38 utfu=007) LYMPHOCYTES ABSOLUTE COUNT (BEAKER) (test 1.95 K/ L 1.32-3.57 lyin=823) MONOCYTES ABSOLUTE COUNT (BEAKER) (test 0.37 K/ L 0.30-0.82 cgcr=066) EOSINOPHILS ABSOLUTE COUNT (BEAKER) (test 0.16 K/ L 0.04-0.54 aylj=714) BASOPHILS ABSOLUTE COUNT (BEAKER) (test 0.04 K/ L 0.01-0.08 aiob=628) IMMATURE GRANULOCYTES-RELATIVE PERCENT (BEAKER) 1 % 0-1 (test aqgm=6176) POCT-GLUCOSE [id number] 21:08:00 Test Item Value Reference Range Comments POC-GLUCOSE METER (BEAKER) 133 mg/dL 70-110 TESTED AT [facility] [address] [facility] (test kbsw=1667) [facility] [address]
--- OUTSIDE RECORDS SUMMARY | 2019-06-23 04:26 | XMS REPORT ---
[...] Status Dosage Date Benadryl [facility] 165[address]23 25 MG Orally Active 1 tablet Allergy 8-25 every 8 hrs as needed Results No Known Results Summary Purpose eClinicalWorks Submission
--- OUTSIDE RECORDS SUMMARY | 2019-06-23 04:26 | XMS REPORT ---
[...] End Status Dosage System Date Date Meloxicam [facility] [id number] 15 MG Orally Apr 30, Aug 28, Active 1 tablet Once a day 2017 2018 Gabapentin ND 16140369136 300 MG Orally November Active 1 capsule Twice a day 2017 before bedtime Benadryl [facility] 63618022457 25 MG Orally Active 1 tablet as Allergy every 8 hrs needed walking boot [facility] [id number] short walking December 12, Active as directed boot for ankle 2018 foot fx while up Results No Known Results Summary Purpose eClinicalWorks Submission
--- OUTSIDE RECORDS SUMMARY | 2019-06-23 04:26 | XMS REPORT ---
[...] End Status Dosage System Date Date Benadryl [facility] 11970000308 25 MG Orally Active 1 tablet Allergy every 8 hrs as needed Gabapentin ND 61544085413 300 MG Orally December 05, Active 1 capsule Twice a day 2018 before bedtime Results No Known Results Summary Purpose eClinicalWorks Submission
== END 2019-06-20 17:20 | disposition home or self-care (01) ==
LOC: ER 15:56 → ERHOLD 19:58 → 2ND 19:59
PROVIDERS: ADMIT Surgery; ATTEND Surgery
PROC: 0DTJ4ZZ Resection of Appendix, Percutaneous Endoscopic Approach (ICD-10-PCS; principal; 2019-06-19 20:00)
DX: K35.80 Unspecified acute appendicitis (principal); F84.5 Asperger's syndrome; Z23 Encounter for immunization
CPT/HCPCS: 96365; 85025 ×2; 81001; 80048 ×2; 36415; 80076; 88304; 74177; 90471; 99285; 44970; Q9967; J2704; Q2035; J3010; J2543 ×2; J1100; J2175; J1170; J2710; G0378 ×4; J7799 ×3; J7120; J2405 ×3

== ENCOUNTER 2019-08-07 12:18 | Emergency (ER) | payer OTHER ==
--- OUTSIDE RECORDS SUMMARY | 2019-08-07 12:19 | XMS REPORT ---
[...] Start End Date Status Dosage Date Benadryl [facility] 06[address]-838 25 MG Orally Active 1 tablet Allergy 8-25 every 8 hrs as needed Results No Known Results Summary Purpose eClinicalWorks Submission
--- OUTSIDE RECORDS SUMMARY | 2019-08-07 12:19 | XMS REPORT ---
[...] Date Date Benadryl [facility] [id number] 25 MG Orally Active 1 tablet Allergy every 8 hrs as needed Gabapentin ND 94626360142 300 MG Orally December 05, Active 1 capsule Twice a day 2018 before bedtime Results No Known Results Summary Purpose eClinicalWorks Submission
--- OUTSIDE RECORDS SUMMARY | 2019-08-07 12:19 | XMS REPORT ---
:1995 Author Organization eClinicalWorks Care Team Providers Name Role Phone Inna Herring Provider Role Unavailable Allergies No Known Allergies Problems Problem Type Condition Code Onset Dates Condition Status Problem Aspergers' syndrome F84.5 Active Problem Memory deficit R41.3 Active Medications Medication Code System Code Instructions Start End Date Status Dosage Date walking boot [facility] 50076-321 short walking December 12, Active as directed 04-03 boot for ankle 2018 foot fx while up Results No Known Results Summary Purpose [email or web address] Submission
--- OUTSIDE RECORDS SUMMARY | 2019-08-07 12:20 | XMS REPORT ---
[...] End Status Dosage System Date Date Meloxicam [facility] [id number] 15 MG Orally Apr 30, Aug 28, Active 1 tablet Once a day 2017 2018 Gabapentin ND 89771468136 300 MG Orally November Active 1 capsule Twice a day 2017 before bedtime Benadryl [facility] 18396966525 25 MG Orally Active 1 tablet as Allergy every 8 hrs needed walking boot [facility] [address]-33 short walking December 12, Active as directed boot for ankle 2018 foot fx while up Results No Known Results Summary Purpose eClinicalWorks Submission
--- OUTSIDE RECORDS SUMMARY | 2019-08-07 12:20 | XMS REPORT ---
:1995 [facility] Address [address] [place] [address] Care Team Providers Name Role Phone ELSI [...] ID: 1 VIEW, NON 09:24:00 exam:->pneumothoraxShould this [id number] Chest one view DEPT be performed at [...] limits. The bones appear intact. Signed: [facility]vin [facility] Verified Date/Time: 04/25/2018 09:24:12 Reading Location: [facility] Radiology Reading Room MIN B12 AND FOLATE 2018-04-25 02:48:00 Test Item Value Reference Range Comments VITAMIN B12 (BEAKER) (test tbcr=115) < pg/mL 213-816 FOLATE (BEAKER) (test ulvz=426) 2.4 ng/mL >=7.0 VANCOMYCIN LEVEL, [id number] 02:10:00 Test Item Value Reference Range Comments VANCOMYCIN TROUGH (DENNIS) (test fxtb=583) 8.6 ug/mL 10.0-20.0 CT, CHEST, WITH [id number] 12:29:00Left pneumothorax and pneumediastinum with pneumoperitoneum and [...] Verified Date/Time: 04/24/2018 12:29:48 Reading Location: [facility] B1 C013Y CT Body Reading Room CT, [id number] 12:29:00Left pneumothorax and pneumediastinum with pneumoperitoneum and [...] Verified Date/Time: 04/24/2018 12:29:48 Reading Location: [facility] B1 C013Y CT Body Reading Room RAD, CHEST, 1 VIEW, NON [id number] 07:33:00Reason for exam:->spontaneous PTX, pneumomediastinumShould this be [...] MDReport Verified Date/Time: 04/24/2018 07:33:30 Reading Location: [facility] Radiology Reading Room HEPATIC FUNCTION [id number] 05:47:00 Test Item Value Reference Range Comments TOTAL PROTEIN (BEAKER) (test wynq=051) 7.0 gm/dL 6.0-8.3 ALBUMIN (BEAKER) (test keki=0259) 4.1 g/dL 3.5-5.0 BILIRUBIN TOTAL (BEAKER) (test undy=059) 1.7 mg/dL 0.2-1.2 BILIRUBIN DIRECT (BEAKER) (test zxgl=260) 0.6 mg/dL 0.1-0.5 ALKALINE PHOSPHATASE (BEAKER) (test eblk=457) 46 U/L 40-150 AST (SGOT) (BEAKER) (test xkec=237) 12 U/L 5-34 ALT (SGPT) (BEAKER) (test oigx=582) 15 U/L 6-55 BASIC METABOLIC [id number] 05:47:00 Test Item Value Reference Range Comments SODIUM (BEAKER) (test 137 meq/L 136-145 uihw=361) POTASSIUM (BEAKER) (test 4.1 meq/L 3.5-5.1 mpiy=126) CHLORIDE (BEAKER) (test 105 meq/L 98-107 xgne=718) CO2 (BEAKER) (test 25 meq/L 22-29 anrl=437) BLOOD UREA NITROGEN 8 mg/dL 7-21 (BEAKER) (test aesq=289) CREATININE (BEAKER) (test 0.95 mg/dL 0.57-1.25 yzkp=864) GLUCOSE RANDOM (BEAKER) 89 mg/dL 70-105 (test aaos=393) CALCIUM (BEAKER) (test 9.7 mg/dL 8.4-10.2 lodz=236) EGFR (BEAKER) (test 98 mL/min/1.73 sq m ESTIMATED GFR IS NOT yuch=1367) ACCURATE CREATININE CLEARANCE IN PREDICTING GLOMERULAR FILTRATION RATE. ESTIMATED GFR IS NOT APPLICABLE FOR DIALYSIS PATIENTS. PROTHROMBIN [id number] 05:42:00 Test Item Value Reference Range Comments PROTIME (BEAKER) (test agcx=550) 15.9 seconds 11.7-14.7 INR (BEAKER) (test ggmz=389) 1.3 <=5.9 RECOMMENDED COUMADIN/WARFARIN INR THERAPY RANGESSTANDARD DOSE: 2.0 - 3.0 Includes: PROPHYLAXIS forvenous thrombosis, systemic embolization; TREATMENT for venous thrombosis and/or pulmonary embolus.HIGH RISK: Target INR is 2.5-3.5 for patients with mechanical heart valves.CBC W/PLT COUNT & AUTO [id number] 05:28:00 Test Item Value Reference Range Comments WHITE BLOOD CELL COUNT (BEAKER) (test hbpt=784) 7.7 K/ L 3.5-10.5 RED BLOOD CELL COUNT (BEAKER) (test ekbc=549) 5.27 M/ L 4.63-6.08 HEMOGLOBIN (BEAKER) (test ikvh=867) 14.5 GM/DL 13.7-17.5 HEMATOCRIT (BEAKER) (test kidf=534) 43.6 % 40.1-51.0 MEAN CORPUSCULAR VOLUME (BEAKER) (test hdjm=835) 82.7 fL 79.0-92.2 MEAN CORPUSCULAR HEMOGLOBIN (BEAKER) (test 27.5 pg 25.7-32.2 yxfl=179) MEAN CORPUSCULAR HEMOGLOBIN CONC (BEAKER) (test 33.3 GM/DL 32.3-36.5 zjgr=873) RED CELL DISTRIBUTION WIDTH (BEAKER) (test 13.1 % 11.6-14.4 hywk=141) PLATELET COUNT (BEAKER) (test iqvt=184) 216 K/CU MM 150-450 MEAN PLATELET VOLUME (BEAKER) (test qhcq=794) 10.3 fL 9.4-12.4 NUCLEATED RED BLOOD CELLS (BEAKER) (test 0 /100 WBC 0-0 mjra=773) NEUTROPHILS RELATIVE PERCENT (BEAKER) (test 76 % agqr=271) LYMPHOCYTES RELATIVE PERCENT (BEAKER) (test 17 % imjs=443) MONOCYTES RELATIVE PERCENT (BEAKER) (test 5 % wwqv=637) EOSINOPHILS RELATIVE PERCENT (BEAKER) (test 2 % qozx=248) BASOPHILS RELATIVE PERCENT (BEAKER) (test 0 % tzwm=436) NEUTROPHILS ABSOLUTE COUNT (BEAKER) (test 5.83 K/ L 1.78-5.38 bxos=878) LYMPHOCYTES ABSOLUTE COUNT (BEAKER) (test 1.30 K/ L 1.32-3.57 kpbo=625) MONOCYTES ABSOLUTE COUNT (BEAKER) (test 0.35 K/ L 0.30-0.82 gpqc=540) EOSINOPHILS ABSOLUTE COUNT (BEAKER) (test 0.17 K/ L 0.04-0.54 udur=600) BASOPHILS ABSOLUTE COUNT (BEAKER) (test 0.02 K/ L 0.01-0.08 qwaj=156) IMMATURE GRANULOCYTES-RELATIVE PERCENT (BEAKER) 0 % 0-1 (test pwia=9740) RAPID DRUG SCREEN, [id number] 13:53:00 Test Item Value Reference Range Comments BARBITURATE URINE (BEAKER) (test ebjs=631) Negative Negative BENZODIAZEPINE SCREEN URINE (BEAKER) (test Negative Negative qdwy=094) COCAINE (METAB.) SCREEN (BEAKER) (test gzbr=8180) Negative Negative METHADONE SCREEN (BEAKER) (test brkw=8991) Negative Negative OPIATE SCREEN URINE (BEAKER) (test ktjb=056) Negative Negative CANNABINOID SCREEN URINE (BEAKER) (test pxfg=098) Negative Negative AMPH/METHAMPH SCREEN (BEAKER) (test fwqb=6653) Negative Negative PHENCYCLIDINE SCREEN URINE (BEAKER) (test qelc=001) Negative Negative OXYCODONE SCREEN URINE (BEAKER) (test aqpe=0427) Negative Negative DRUG CUTOFF CONC.Cocaine 300 ng/mL Cannabinoid 50 ng/mL Benzodiazepine 200 ng/mLBarbiturate 200 ng/ mLPhencyclidine 25 ng/mLOpiate 300 ng/mLMethadone 300 ng/mLAmphetamine/ 1000 ng/mL MethamphetamineOxycodone 300 ng/mLThis assay provides an unconfirmed qualitative test result for the clinical management of patients in emergency situations. Chain of custody not maintained. Some zlfq-iqt-wkmkwyd medications, as well as adulterants, may cause inaccurate results. Clinical correlation should be applied. A more comprehensive drug screen or confirmation of a detected drug may be performed upon request.[id number] 13:27:00 Test Item Value Reference Range Comments ALPHA-1 ANTITRYPSIN (BEAKER) 169.80 mg/dL 90.00-200.00 Specimen slightly hemolyzed (test qnje=662) [id number] 12:53:00 Test Item Value Reference Range Comments HOMOCYSTEINE (BEAKER) (test phwk=156) 40.2 umol/L 5.1-15.4 HEPATIC FUNCTION [id number] 12:38:00 Test Item Value Reference Range Comments TOTAL PROTEIN (BEAKER) (test jitg=663) 7.5 gm/dL 6.0-8.3 ALBUMIN (BEAKER) (test ztxb=6621) 4.5 g/dL 3.5-5.0 BILIRUBIN TOTAL (BEAKER) (test scwn=058) 1.8 mg/dL 0.2-1.2 BILIRUBIN DIRECT (BEAKER) (test mcen=952) 0.8 mg/dL 0.1-0.5 ALKALINE PHOSPHATASE (BEAKER) (test qhcy=063) 52 U/L 40-150 AST (SGOT) (BEAKER) (test qxsn=566) 12 U/L 5-34 ALT (SGPT) (BEAKER) (test lsgw=868) 14 U/L 6-55 RAD, CHEST, 1 VIEW, NON [id number] 09:53:00Reason for exam:-> pneumothoraxShould this be performed [...] osseous abnormality is identified. Signed: Edvin Garcia [facility] Verified Date/Time: 04/23/2018 09:53:45 Reading Location: [facility] Radiology Reading Room BASIC METABOLIC [id number] 05:54:00 Test Item Value Reference Range Comments SODIUM (BEAKER) (test 139 meq/L 136-145 npao=073) POTASSIUM (BEAKER) (test 4.0 meq/L 3.5-5.1 bfdy=277) CHLORIDE (BEAKER) (test 106 meq/L 98-107 ivjd=919) CO2 (BEAKER) (test 26 meq/L 22-29 maxx=608) BLOOD UREA NITROGEN 6 mg/dL 7-21 (BEAKER) (test ebwx=832) CREATININE (BEAKER) (test 0.90 mg/dL 0.57-1.25 bjwk=134) GLUCOSE RANDOM (BEAKER) 102 mg/dL 70-105 (test qdjv=167) CALCIUM (BEAKER) (test 9.5 mg/dL 8.4-10.2 bneg=470) EGFR (BEAKER) (test 105 mL/min/1.73 sq m ESTIMATED GFR IS NOT qthk=0641) ACCURATE CREATININE CLEARANCE IN PREDICTING GLOMERULAR FILTRATION RATE. ESTIMATED GFR IS NOT APPLICABLE FOR DIALYSIS PATIENTS. CBC W/PLT COUNT & AUTO [id number] 23:44:00 Test Item Value Reference Range Comments WHITE BLOOD CELL COUNT (BEAKER) (test xuhz=471) 10.3 K/ L 3.5-10.5 RED BLOOD CELL COUNT (BEAKER) (test ckvj=529) 4.94 M/ L 4.63-6.08 HEMOGLOBIN (BEAKER) (test ucsc=893) 13.9 GM/DL 13.7-17.5 HEMATOCRIT (BEAKER) (test dhcw=719) 40.9 % 40.1-51.0 MEAN CORPUSCULAR VOLUME (BEAKER) (test ggms=694) 82.8 fL 79.0-92.2 MEAN CORPUSCULAR HEMOGLOBIN (BEAKER) (test 28.1 pg 25.7-32.2 piqt=451) MEAN CORPUSCULAR HEMOGLOBIN CONC (BEAKER) (test 34.0 GM/DL 32.3-36.5 vple=816) RED CELL DISTRIBUTION WIDTH (BEAKER) (test 13.2 % 11.6-14.4 xhcg=405) PLATELET COUNT (BEAKER) (test xjas=359) 238 K/CU MM 150-450 MEAN PLATELET VOLUME (BEAKER) (test ctkf=864) 10.6 fL 9.4-12.4 NUCLEATED RED BLOOD CELLS (BEAKER) (test 0 /100 WBC 0-0 udsw=194) NEUTROPHILS RELATIVE PERCENT (BEAKER) (test 75 % asti=239) LYMPHOCYTES RELATIVE PERCENT (BEAKER) (test 19 % ccez=614) MONOCYTES RELATIVE PERCENT (BEAKER) (test 4 % jhfa=796) EOSINOPHILS RELATIVE PERCENT (BEAKER) (test 2 % zaxk=278) BASOPHILS RELATIVE PERCENT (BEAKER) (test 0 % publ=291) NEUTROPHILS ABSOLUTE COUNT (BEAKER) (test 7.74 K/ L 1.78-5.38 thev=658) LYMPHOCYTES ABSOLUTE COUNT (BEAKER) (test 1.95 K/ L 1.32-3.57 slcp=954) MONOCYTES ABSOLUTE COUNT (BEAKER) (test 0.37 K/ L 0.30-0.82 yhnx=653) EOSINOPHILS ABSOLUTE COUNT (BEAKER) (test 0.16 K/ L 0.04-0.54 ryqr=002) BASOPHILS ABSOLUTE COUNT (BEAKER) (test 0.04 K/ L 0.01-0.08 anxs=335) IMMATURE GRANULOCYTES-RELATIVE PERCENT (BEAKER) 1 % 0-1 (test rnqx=8559) POCT-GLUCOSE [id number] 21:08:00 Test Item Value Reference Range Comments POC-GLUCOSE METER (BEAKER) 133 mg/dL 70-110 TESTED AT [facility] [address] (test tbxt=7924) [facility] [id number]
--- NOTE | 2019-08-07 13:38 | RAD REPORT ---
EXAM DESCRIPTION: RAD - Foot Left 3 View - 08/07/2019 1:30 pm CLINICAL HISTORY: PAIN COMPARISON: No comparisons FINDINGS: No bone or joint abnormality is detected.
--- NOTE | 2019-08-07 13:41 | ER ---
Nurse's Notes [facility] Name: Wicho Adams Age: 24 yrs Sex: Male : 1995 Arrival Date: 08/07/2019 Time: 12:18 Bed 12 Private MD: Diagnosis: Puncture wound without foreign body of foot Presentation: 08/07 12:46 Presenting complaint: Patient states: nail to LEFT medial ankle/foot area sustain last sr5 night. Pulled nail out, but c/o pain. Not sure about tetanus vaccination. Ambulatory but limping. Transition of care: patient was not received from another setting of care. Complicating Factors: The type of wound is a puncture. Onset of symptoms was August 06, 2019. Risk Assessment: Do you want to hurt yourself or someone else? Patient reports no desire to harm self or others. Initial Sepsis Screen: Does the patient meet any 2 criteria? No. Patient's initial sepsis screen is negative. Does the patient have a suspected source of infection? No. Patient's initial sepsis screen is negative. Care prior to arrival: None. 12:46 Method Of Arrival: Ambulatory sr5 12:46 Acuity: TAN 4 sr5 Triage Assessment: 12:48 General: Appears uncomfortable, Behavior is calm, cooperative. Pain: Complains of pain sr5 in left medial malleolus Pain does not radiate. Pain currently is 6 out of 10 on a pain scale. Quality of pain is described as shooting. Neuro: No deficits noted. Cardiovascular: No deficits noted. Injury Description: Puncture sustained to left medial malleolus. Historical: - Allergies: 12:48 No Known Allergies; sr5 - Home Meds: 12:48 None [Active]; sr5 - PMHx: 12:48 Asperger syndrome; joint issues; sr5 - PSHx: 12:48 None; sr5 - Immunization history:: Last tetanus immunization: unknown. - Social history:: Smoking status: Smoking status: Patient uses tobacco products, secondary smoke. - Ebola Screening: : Patient negative for fever greater than or equal to 101.5 degrees Fahrenheit, and additional compatible Ebola Virus Disease symptoms. Screenin:28 Abuse screen: Denies threats or abuse. Denies injuries from another. Nutritional iw screening: No deficits noted. Tuberculosis screening: No symptoms or risk factors identified. Fall Risk None identified. Assessment: 13:28 General: Appears in no apparent distress. Behavior is calm, cooperative. Pain: iw Complains of pain in medial aspect of left heel and left medial malleolus. Neuro: Level of Consciousness is awake, alert, obeys commands, Oriented to person, place, time, situation. Musculoskeletal: Range of motion: intact in all extremities. Injury Description: Laceration is. Vital Signs: 12:48 BP 118 / 86; Pulse 83; Resp 16; Temp 99.8; Pulse Ox 98% on R/A; Weight 104.33 kg (R); sr5 Height 5 ft. 11 in. (180.34 cm); Pain 6/10; 12:48 Body Mass Index 32.08 (104.33 kg, 180.34 cm) sr5 ED Course: 12:18 Patient arrived in ED. rg4 12:22 Rebecca Weldon FNP-C is [facility]. kb 12:22 Jae Upton MD is Attending Physician. kb 12:47 Triage completed. sr5 12:48 Arm band placed on. sr5 12:57 Yuly Cerrato, RN is Primary Nurse. iw 13:31 Foot Left 3 View XRAY In Process Unspecified. EDMS 13:35 Patient has correct armband on for positive identification. iw 14:05 No provider procedures requiring assistance completed. Patient did not have IV access iw during this emergency room visit. Administered Medications: No medications were administered Outcome: 13:40 Discharge ordered by MD. kb 14:05 Discharged to home ambulatory. iw 14:05 Condition: good 14:05 Discharge instructions given to patient, Instructed on discharge instructions, follow up and referral plans. Demonstrated understanding of instructions, follow-up care, medications, Prescriptions given X 1. 14:06 Patient left the ED. dm5 Signatures: Dispatcher [employer] EDMS Rbeecca Weldon FNP-C FNP-Ckb Markwardt, Deana, RN RN dm5 Yuly Cerrato RN RN iw Resecker, Sam RN RN sr5 Lima Proctor rg4 Corrections: (The following items were deleted from the chart) 12:51 12:48 BP 1 / ???; Pulse 83bpm; Resp 16bpm; Pulse Ox 98% RA; Temp 99.8F; 104.33 kg sr5 Reported; Height 5 ft. 11 in.; BMI: 32.0; Pain 6/10; sr5
--- NOTE | 2019-08-07 13:42 | EDPHYS ---
Physician Documentation [facility] Name: Wicho Adams Age: 24 yrs Sex: Male : 1995 Arrival Date: 08/07/2019 Time: 12:18 Bed 12 Private MD: ED Physician Jae Upton HPI: 08/07 12:56 This 24 yrs old Male presents to ER via Ambulatory with complaints of kb Laceration To Foot. 12:56 The patient has a laceration related to: stepped in debris and a nail went into medial kb aspect of foot occurred outdoors, and The type of wound is a puncture. The injury was accidental. The laceration(s) is(are) located on the medial aspect of left heel and left medial malleolus. Onset: The symptoms/episode began/occurred yesterday. Associated signs and symptoms: The patient has no apparent associated signs or symptoms. The patient has not experienced similar symptoms in the past. The patient has not recently seen a physician. Historical: - Allergies: 12:48 No Known Allergies; sr5 - Home Meds: 12:48 None [Active]; sr5 - PMHx: 12:48 Asperger syndrome; joint issues; sr5 - PSHx: 12:48 None; sr5 - Immunization history:: Last tetanus immunization: unknown. - Social history:: Smoking status: Smoking status: Patient uses tobacco products, secondary smoke. - Ebola Screening: : Patient negative for fever greater than or equal to 101.5 degrees Fahrenheit, and additional compatible Ebola Virus Disease symptoms. ROS: 12:55 Constitutional: Negative for fever, chills, and weight loss, ENT: Negative for injury, kb pain, and discharge, Neck: Negative for injury, pain, and swelling, Cardiovascular: Negative for chest pain, palpitations, and edema, Respiratory: Negative for shortness of breath, cough, wheezing, and pleuritic chest pain, Abdomen/GI: Negative for abdominal pain, nausea, vomiting, diarrhea, and constipation, MS/Extremity: Negative for injury and deformity, Neuro: Negative for headache, weakness, numbness, tingling, and seizure. 12:55 Skin: Positive for puncture, of the medial aspect of left heel and left medial malleolus. Exam: 12:55 Constitutional: This is a well developed, well nourished patient who is awake, alert, kb and in no acute distress. Head/Face: Normocephalic, atraumatic. ENT: Nares patent. No nasal discharge, no septal abnormalities noted. Tympanic membranes are normal and external auditory canals are clear. Oropharynx with no redness, swelling, or masses, exudates, or evidence of obstruction, uvula midline. Mucous membranes moist. Neck: Trachea midline, no thyromegaly or masses palpated, and no cervical lymphadenopathy. Supple, full range of motion without nuchal rigidity, or vertebral point tenderness. No Meningismus. Chest/axilla: Normal chest wall appearance and motion. Nontender with no deformity. No lesions are appreciated. Cardiovascular: Regular rate and rhythm with a normal S1 and S2. No gallops, murmurs, or rubs. Normal PMI, no JVD. No pulse deficits. Respiratory: Lungs have equal breath sounds bilaterally, clear to auscultation and percussion. No rales, rhonchi or wheezes noted. No increased work of breathing, no retractions or nasal flaring. Abdomen/GI: Soft, non-tender, with normal bowel sounds. No distension or tympany. No guarding or rebound. No evidence of tenderness throughout. MS/ Extremity: Pulses equal, no cyanosis. Neurovascular intact. Full, normal range of motion. Neuro: Awake and alert, GCS 15, oriented to person, place, time, and situation. Cranial nerves II-XII grossly intact. Motor strength 5/5 in all extremities. Sensory grossly intact. Cerebellar exam normal. Normal gait. 12:55 Skin: injury, puncture(s), that are superficial, of the left medial malleolus and medial aspect of left heel. Vital Signs: 12:48 BP 118 / 86; Pulse 83; Resp 16; Temp 99.8; Pulse Ox 98% on R/A; Weight 104.33 kg (R); sr5 Height 5 ft. 11 in. (180.34 cm); Pain 6/10; 12:48 Body Mass Index 32.08 (104.33 kg, 180.34 cm) sr5 MDM: 12:51 Patient medically screened. kb 12:54 Data reviewed: vital signs, nurses notes. Data reviewed: old medical records, Last kb Tetanus shot was given here on 04/26/19. Data interpreted: Pulse oximetry: on room air is 98 %. Interpretation: normal. 13:39 Counseling: I had a detailed discussion with the patient and/or guardian regarding: the kb historical points, exam findings, and any diagnostic results supporting the discharge/admit diagnosis, radiology results, the need for outpatient follow up, a family practitioner, to return to the emergency department if symptoms worsen or persist or if there are any questions or concerns that arise at home. 08/07 12:54 Order name: Foot Left 3 View XRAY; Complete Time: 13:45 kb 08/07 12:57 Order name: Wound Care; Complete Time: 13:27 kb Administered Medications: No medications were administered Disposition: 19:04 Co-signature as Attending Physician, Jae Upton MD. rn Disposition: 08/07/19 13:40 Discharged to Home. Impression: Puncture wound without foreign body of foot. - Condition is Stable. - Discharge Instructions: Puncture Wound, [id number]. - Prescriptions for Keflex 500 mg Oral Capsule - take 1 capsule by ORAL route every 8 hours for 10 days; 30 capsule. - Medication Reconciliation Form, Thank You Letter, Antibiotic Education, Prescription Opioid Use form. - Follow up: Emergency Department; When: As needed; Reason: Worsening of condition. Follow up: Private Physician; When: 2 - 3 days; Reason: Recheck today's complaints, Continuance of care, Re-evaluation by your physician. Signatures: Dispatcher [employer] Rebecca Jones, COMPUTER INFORMATION SCIENCE PROFESSOR-C COMPUTER INFORMATION SCIENCE PROFESSOR-Corry Valdez, RN RN dm5 Jae Upton MD MD rn Barronecksarah, Constantino RN RN sr5 Corrections: (The following items were deleted from the chart) 14:06 13:40 08/07/2019 13:40 Discharged to Home. Impression: Puncture wound without foreign dm5 body of foot. Condition is Stable. Forms are Medication Reconciliation Form, Thank You Letter, Antibiotic Education, Prescription Opioid Use. Follow up: Emergency Department; When: As needed; Reason: Worsening of condition. Follow up: Private Physician; When: 2 - 3 days; Reason: Recheck today's complaints, Continuance of care, Re-evaluation by your physician. kb
[2019-08-07 14:43] VITALS: BP 118/86; TEMP 99.8; O2SAT 98
== END 2019-08-07 14:06 | disposition home or self-care (01) ==
LOC: ER 12:18
DX: S91.332A Puncture wound without foreign body, left foot, initial encounter (principal); W45.0XXA Nail entering through skin, initial encounter; Y93.01 Activity, walking, marching and hiking; Y92.89 Other specified places as the place of occurrence of the external cause; Z72.0 Tobacco use
CPT/HCPCS: 99283

== ENCOUNTER 2020-03-12 16:02 | Emergency (ER) | payer OTHER ==
--- OUTSIDE RECORDS SUMMARY | 2020-03-12 16:09 | XMS REPORT | Clinical Summary ---
:1995 Author Organization [facility] Address [address] [place] [address] Care Team Providers Name Role Phone Unavailable Primary Care Provider Unavailable Allergies No Known Allergies Medications No known medications Active Problems Problem Noted Date Pneumothorax 04/22/2018 Family History Medical History Relation Name Comments [...] travel history available. Last Filed Vital Signs Not on file Plan of Treatment Not on file Results Not on fileafter 03/12/2019 Insurance Payer Benefit Plan / Subscriber ID Type Phone Address Group MEDICAID - MEDICAID [facility] xxxxxxxxx Medicaid Contracted MGD CARE PLAN Advance Directives For more information, please contact:[facility] [employer] [facility]iB[facility] [address] [phone] Code Status Date Activated Date Inactivated Comments Full Code 04/22/2018 10:44 PM 04/25/2018 4:40 PM This code status was determined by: Patient
--- OUTSIDE RECORDS SUMMARY | 2020-03-12 16:09 | XMS REPORT | Continuity of Care Document ---
:1995 Author Organization [facility] t Address [address] [place] [address] Care Team Providers Name Role Phone MICHELLE Attending Clinician Unavailable MICHELLE Admitting Clinician Unavailable Problems Condition Condition Condition Status Onset Resolution Last Treating Co mments Source Name Details Category Date Date Treatment Clinician Date Pneumothor Pneumothor Disease Active [facility] [place] [address] [facility]pergers' Diagnosis Active [facility] Memory Memory Problem Active [facility] deficit [facility] Pain in Pain in Diagnosis [facility] Pain in Pain in Diagnosis Active [facility] Allergies, Adverse Reactions, Alerts This patient has no known allergies or adverse reactions. Family History Family Member Diagnosis Comments Start Date Stop Date Source Maternal grandmother Arthritis [facility] Maternal grandmother Cancer [facility] Maternal grandmother Diabetes [facility] Maternal grandmother Hypertension [facility] Maternal grandmother Liver disease C [facility] Natural mother Arthritis [facility] Natural mother Hypertension [facility] Social History Social Habit Start Date Stop Date Quantity Comments Source Sex Assigned At [facility] Smoking Status Start Date Stop Date Source Never smoker [facility] Medications Ordered Filled Start Stop Current Ordering Indication Dosage Frequency Signature Comments Components Source Medication Medication Date Date Medication? Clinician (SIG) Name Name Meloxicam Meloxicam 2019- No Innalima Herring [address] [facility] 18 08-28 [facility]00 [facility] walking walking Yes Inna Herring as [facility] boot boot 5-02 directed [facility] Gabapentin Gabapentin Yes Inna Lamar [address] [facility] 4-25 before [facility] bed[facility] 00 [facility] Benadryl Benadryl Yes Inna Lamar [address] [facility] Allergy Allergy as needed [facility] Procedures This patient has no known procedures. Encounters Start End Encounter Admission Attending Care Care Encounter Source Date/Time Date/Time Type Type Clinicians Facility Department ID 2018-04-30 2018-04-30 [facility] [id number] [facility] 14[facility]30[facility]00 14:30[facility]00 [facility] Medicine Outpati ent Clinics 2017-12-28 2017-12-28 [facility] [id number] [facility] [address] 14:39[facility]00 14:39:00 [facility] Medicine Outpati ent Clinics 2017-12-13 2017-12-13 [facility] [id number] [facility] [address] 14:18:00 14:18:00 [facility] Medicine Outpati ent Clinics 2017-12-12 2017-12-12 [facility] [id number] [address] 16:19:00 16:19:00 [facility] Medicine Outpati ent Clinics 2017-12-05 2017-12-05 [facility] [id number] [address] 14:00:00 14:00:00 [facility] Medicine Outpati ent Clinics 2017-11-22 2017-11-22 [facility] [id number] [address] 15:15:00 15:15:00 [facility] Medicine [facility] Results Test Description Test Time Test Comments Results Result Sourc e Comments RAD, CHEST, 1 2018-04-13 Reason for FINAL REPORT PATIENT ID: VIEW, NON DEPT 3 exam:->pneumot [id number] Chest one view 09:24:00 horaxShould INDICATION: Pneumothorax this be COMPARISON: 04/24/2018 performed at IMPRESSION: Two frontal the images of the chest are bedside?->Yes provided. Neck chest and abdominal wall subcutaneous [...] limits. The bones appear intact. Signed: Edvin Garciaeport Verified Date/Time: 04/25/2018 09:24:12 Reading Location: [facility] Radiology Reading Room MIN B12 AND FOLATE 2018-04-25 02:48:00 Test Item Value Reference Range Interpretation Comme nts VITAMIN B12 (BEAKER) (test code = 774) < pg/mL 213-816 L FOLATE (BEAKER) (test code = 362) 2.4 ng/mL >=7.0 L VANCOMYCIN LEVEL, [id number] 02:10:00 Test Item Value Reference Range Interpretation Comments VANCOMYCIN TROUGH (BEAKER) (test 8.6 ug/mL 10.0-20.0 L code = 522) CT, CHEST, WITH [id number] 12:29:00Left pneumothorax and pneumediastinum with pneumoperitoneum and air extending to RLE by outside CT, please f/u with repeat eval 04/24/18 in AM please eval with CT thorax/abd/pelvisFINAL REPORT TECHNIQUE: CT of [...] solid mass lesions.PELVIC ORGANS/BLADDER: The bladder is underdis tended, limiting its evaluation. Prostate and seminal vesicles [...] lower neck right chest and abdominalwall, right groin, and visualized right thigh. IMPRESSION:Small left hydropneumothorax. Pneumomediastinum. Pneumoperitoneum and pneumoretroperitoneum, predominantly on the right. Subcutaneous emphysema in the lower neck and along the right side of the chest, abdomen, and visualized right thigh. Signed: Shemar Ramsey MDReport Verified Date/Time: 04/24/2018 12:29:48 Reading Location: [facility] B1 C013Y CT Body Reading Room CT, [id number] 12:29:00Left pneumothorax and pneumediastinum with pneumoperitoneum and [...] masses or ductal dilatation. ADRENALS: No adrenal nodules.KIDNEYS/URE TERS: No hydronephrosis, stones, or solid mass lesions.PELVIC [...] lower neck right chest and abdominalwall, right groin, and visualized right thigh. IMPRESSION:Small left hydropneumothorax. Pneumomediastinum. Pneumoperitoneum and pneumoretroperitoneum, predominantly on the right. Subcutaneous emphysema in the lower neck and along the right side of the chest, abdomen, and visualized right thigh. Signed: Shemar Ramsey MDReport Verified Date/Time: 04/24/2018 12:29:48 Reading Location: [facility] B1 C013Y CT Body Reading Room RAD, CHEST, 1 VIEW, NON [id number] 07:33:00Reason for exam:- >spontaneous PTX, pneumomediastinumShould this be performed at the [...] MDReport Verified Date/Time: 04/24/2018 07:33:30 Reading Location: [facility] Radiology Reading Room HEPATIC FUNCTION [id number] 05:47:00 Test Item Value Reference Range Interpretation Comments TOTAL PROTEIN (BEAKER) (test code = 7.0 gm/dL 6.0-8.3 770) ALBUMIN (BEAKER) (test code = 1145) 4.1 g/dL 3.5-5.0 BILIRUBIN TOTAL (BEAKER) (test code 1.7 mg/dL 0.2-1.2 H = 377) BILIRUBIN DIRECT (BEAKER) (test 0.6 mg/dL 0.1-0.5 H code = 706) ALKALINE PHOSPHATASE (BEAKER) (test 46 U/L 40-150 code = 346) AST (SGOT) (BEAKER) (test code = 12 U/L 5-34 353) ALT (SGPT) (BEAKER) (test code = 15 U/L 6-55 347) BASIC METABOLIC [id number] 05:47:00 Test Item Value Reference Range Interpretation Comments SODIUM (BEAKER) 137 meq/L 136-145 (test code = 381) POTASSIUM (BEAKER) 4.1 meq/L 3.5-5.1 (test code = 379) CHLORIDE (BEAKER) 105 meq/L 98-107 (test code = 382) CO2 (BEAKER) (test 25 meq/L 22-29 code = 355) BLOOD UREA NITROGEN 8 mg/dL 7-21 (BEAKER) (test code = 354) CREATININE (BEAKER) 0.95 mg/dL 0.57-1.25 (test code = 358) GLUCOSE RANDOM 89 mg/dL 70-105 (BEAKER) (test code = 652) CALCIUM (BEAKER) 9.7 mg/dL 8.4-10.2 (test code = 697) EGFR (BEAKER) (test 98 mL/min/1.73 ESTIMA MARIA D GFR IS code = 1092) sq m NOT ACCURATE CREATININE CLEARANCE IN PREDICTING GLOMERULAR FILTRATION RATE . ESTIMATED GFR I S NOT APPLICABLE FOR DIALYSIS PATIEN TS. PROTHROMBIN [id number] 05:42:00 Test Item Value Reference Range Interpretation Comments PROTIME (BEAKER) (test code = 15.9 seconds 11.7-14.7 H 759) INR (BEAKER) (test code = 370) 1.3 <=5.9 RECOMMENDED COUMADIN/WARFARIN INR THERAPY RANGESSTANDARD DOSE: 2.0 - 3.0 Includes: PROPHYLAXIS forvenous thrombosis, systemic embolization; TREATMENT for venous thrombosis and/or pulmonary embolus.HIGH RISK: Target INR is 2.5-3.5 for patients with mechanical heart valves.CBC W/PLT COUNT & AUTO DIFFERENTIAL 2018-04-24 05:28:00 Test Item Value Reference Range Interpretation Comments WHITE BLOOD CELL COUNT (BEAKER) 7.7 K/ L 3.5-10.5 (test code = 775) RED BLOOD CELL COUNT (BEAKER) 5.27 M/ L 4.63-6.08 (test code = 761) HEMOGLOBIN (BEAKER) (test code = 14.5 GM/DL 13.7-17.5 410) HEMATOCRIT (BEAKER) (test code = 43.6 % 40.1-51.0 411) MEAN CORPUSCULAR VOLUME (BEAKER) 82.7 fL 79.0-92.2 (test code = 753) MEAN CORPUSCULAR HEMOGLOBIN 27.5 pg 25.7-32.2 (BEAKER) (test code = 751) MEAN CORPUSCULAR HEMOGLOBIN CONC 33.3 GM/DL 32.3-36.5 (BEAKER) (test code = 752) RED CELL DISTRIBUTION WIDTH 13.1 % 11.6-14.4 (BEAKER) (test code = 412) PLATELET COUNT (BEAKER) (test 216 K/CU MM 150-450 code = 756) MEAN PLATELET VOLUME (BEAKER) 10.3 fL 9.4-12.4 (test code = 754) NUCLEATED RED BLOOD CELLS 0 /100 WBC 0-0 (BEAKER) (test code = 413) NEUTROPHILS RELATIVE PERCENT 76 % (BEAKER) (test code = 429) LYMPHOCYTES RELATIVE PERCENT 17 % (BEAKER) (test code = 430) MONOCYTES RELATIVE PERCENT 5 % (BEAKER) (test code = 431) EOSINOPHILS RELATIVE PERCENT 2 % (BEAKER) (test code = 432) BASOPHILS RELATIVE PERCENT 0 % (BEAKER) (test code = 437) NEUTROPHILS ABSOLUTE COUNT 5.83 K/ L 1.78-5.38 H (BEAKER) (test code = 670) LYMPHOCYTES ABSOLUTE COUNT 1.30 K/ L 1.32-3.57 L (BEAKER) (test code = 414) MONOCYTES ABSOLUTE COUNT (BEAKER) 0.35 K/ L 0.30-0.82 (test code = 415) EOSINOPHILS ABSOLUTE COUNT 0.17 K/ L 0.04-0.54 (BEAKER) (test code = 416) BASOPHILS ABSOLUTE COUNT (BEAKER) 0.02 K/ L 0.01-0.08 (test code = 417) IMMATURE GRANULOCYTES-RELATIVE 0 % 0-1 PERCENT (BEAKER) (test code = 2801) RAPID DRUG SCREEN, [id number] 13:53:00 Test Item Value Reference Range Interpretation Comments BARBITURATE URINE (BEAKER) (test Negative Negative code = 725) BENZODIAZEPINE SCREEN URINE (BEAKER) Negative Negative (test code = 726) COCAINE (METAB.) SCREEN (BEAKER) Negative Negative (test code = 1164) METHADONE SCREEN (BEAKER) (test code Negative Negative = 1436) OPIATE SCREEN URINE (BEAKER) (test Negative Negative code = 734) CANNABINOID SCREEN URINE (BEAKER) Negative Negative (test code = 727) AMPH/METHAMPH SCREEN (BEAKER) (test Negative Negative code = 1438) PHENCYCLIDINE SCREEN URINE (BEAKER) Negative Negative (test code = 608) OXYCODONE SCREEN URINE (BEAKER) Negative Negative (test code = 2761) DRUG CUTOFF CONC.Cocaine 300 ng/mL Cannabinoid 50 ng/mL Benzodiazepine 200 ng/mLBarbiturate 200 ng/mLPhencyclidine 25 ng/mLOpiate 300 ng/mLMethadone 300 ng/mLAmphetamine/ 1000 ng/mL MethamphetamineOxycodone 300 ng/mLThis assay provides an unconfirmed qualitative test result for the clinical management of patients in emergency situations. Chain of custody not maintained. Some ldwr-ziy-ymsjgwz medications, as well as adulterants, may cause inaccurate results. Clinical correlation should be applied. A more comprehensive drug screen or confirmation of a detected drug may be performed upon request. [id number] 13:27:00 Test Item Value Reference Range Interpretation Comments ALPHA-1 ANTITRYPSIN 169.80 mg/dL 90.00-200.00 Specimen slightly (BEAKER) (test code = hemoly zed 502) [id number] 12:53:00 Test Item Value Reference Range Interpretation Comments HOMOCYSTEINE (BEAKER) (test code 40.2 umol/L 5.1-15.4 H = 642) HEPATIC FUNCTION [id number] 12:38:00 Test Item Value Reference Range Interpretation Comments TOTAL PROTEIN (BEAKER) (test code = 7.5 gm/dL 6.0-8.3 770) ALBUMIN (BEAKER) (test code = 1145) 4.5 g/dL 3.5-5.0 BILIRUBIN TOTAL (BEAKER) (test code 1.8 mg/dL 0.2-1.2 H = 377) BILIRUBIN DIRECT (BEAKER) (test 0.8 mg/dL 0.1-0.5 H code = 706) ALKALINE PHOSPHATASE (BEAKER) (test 52 U/L 40-150 code = 346) AST (SGOT) (BEAKER) (test code = 12 U/L 5-34 353) ALT (SGPT) (BEAKER) (test code = 14 U/L 6-55 347) RAD, CHEST, 1 VIEW, NON [id number] 09:53:00Reason for exam:- >pneumothoraxShould this be performed at the bedside?->YesFINAL REPORT [...] MDReport Verified Date/Time: 04/23/2018 09:53:45 Reading Location: [facility] Radiology Reading Room BASIC METABOLIC [id number] 05:54:00 Test Item Value Reference Range Interpretation Comments SODIUM (BEAKER) 139 meq/L 136-145 (test code = 381) POTASSIUM (BEAKER) 4.0 meq/L 3.5-5.1 (test code = 379) CHLORIDE (BEAKER) 106 meq/L 98-107 (test code = 382) CO2 (BEAKER) (test 26 meq/L 22-29 code = 355) BLOOD UREA NITROGEN 6 mg/dL 7-21 L (BEAKER) (test code = 354) CREATININE (BEAKER) 0.90 mg/dL 0.57-1.25 (test code = 358) GLUCOSE RANDOM 102 mg/dL 70-105 (BEAKER) (test code = 652) CALCIUM (BEAKER) 9.5 mg/dL 8.4-10.2 (test code = 697) EGFR (BEAKER) (test 105 mL/min/1.73 ESTIM ATED GFR IS code = 1092) sq m NOT ACCURATE CREATININE CLEARANCE IN PREDICTING GLOMERULAR FILTRATION RATE . ESTIMATED GFR I S NOT APPLICABLE FOR DIALYSIS PATIEN TS. CBC W/PLT COUNT & AUTO [id number] 23:44:00 Test Item Value Reference Range Interpretation Comments WHITE BLOOD CELL COUNT (BEAKER) 10.3 K/ L 3.5-10.5 (test code = 775) RED BLOOD CELL COUNT (BEAKER) 4.94 M/ L 4.63-6.08 (test code = 761) HEMOGLOBIN (BEAKER) (test code = 13.9 GM/DL 13.7-17.5 410) HEMATOCRIT (BEAKER) (test code = 40.9 % 40.1-51.0 411) MEAN CORPUSCULAR VOLUME (BEAKER) 82.8 fL 79.0-92.2 (test code = 753) MEAN CORPUSCULAR HEMOGLOBIN 28.1 pg 25.7-32.2 (BEAKER) (test code = 751) MEAN CORPUSCULAR HEMOGLOBIN CONC 34.0 GM/DL 32.3-36.5 (BEAKER) (test code = 752) RED CELL DISTRIBUTION WIDTH 13.2 % 11.6-14.4 (BEAKER) (test code = 412) PLATELET COUNT (BEAKER) (test 238 K/CU MM 150-450 code = 756) MEAN PLATELET VOLUME (BEAKER) 10.6 fL 9.4-12.4 (test code = 754) NUCLEATED RED BLOOD CELLS 0 /100 WBC 0-0 (BEAKER) (test code = 413) NEUTROPHILS RELATIVE PERCENT 75 % (BEAKER) (test code = 429) LYMPHOCYTES RELATIVE PERCENT 19 % (BEAKER) (test code = 430) MONOCYTES RELATIVE PERCENT 4 % (BEAKER) (test code = 431) EOSINOPHILS RELATIVE PERCENT 2 % (BEAKER) (test code = 432) BASOPHILS RELATIVE PERCENT 0 % (BEAKER) (test code = 437) NEUTROPHILS ABSOLUTE COUNT 7.74 K/ L 1.78-5.38 H (BEAKER) (test code = 670) LYMPHOCYTES ABSOLUTE COUNT 1.95 K/ L 1.32-3.57 (BEAKER) (test code = 414) MONOCYTES ABSOLUTE COUNT (BEAKER) 0.37 K/ L 0.30-0.82 (test code = 415) EOSINOPHILS ABSOLUTE COUNT 0.16 K/ L 0.04-0.54 (BEAKER) (test code = 416) BASOPHILS ABSOLUTE COUNT (BEAKER) 0.04 K/ L 0.01-0.08 (test code = 417) IMMATURE GRANULOCYTES-RELATIVE 1 % 0-1 PERCENT (BEAKER) (test code = 2801) POCT-GLUCOSE [id number] 21:08:00 Test Item Value Reference Range Interpretation Comments POC-GLUCOSE METER 133 mg/dL 70-110 H TESTED AT [facility] 67[address] ([place]) (test code = [place] 1538) [address]
--- NOTE | 2020-03-12 16:57 | EDPHYS ---
Physician Documentation [facility] Name: Wicho Adams Age: 24 yrs Sex: Male : 1995 Arrival Date: 03/12/2020 Time: 16:05 Bed 12 Private MD: JAVIER Physician Carlos Negrete HPI: 03/12 16:54 This 24 yrs old Male presents to ER via Ambulatory with complaints of Wound kb Infection. 16:54 The patient presents with pain, a puncture wound, by a tack. The complaints affect the kb right foot. Context: the patient can fully bear weight, the patient is able to ambulate. Onset: The symptoms/episode began/occurred 4 day(s) ago. Modifying factors: The symptoms are alleviated by nothing, the symptoms are aggravated by weight bearing. Associated signs and symptoms: Pertinent positives: puncture, drainage. Severity of symptoms: At their worst the symptoms were mild, in the emergency department the symptoms are unchanged. The patient has not experienced similar symptoms in the past. The patient has not recently seen a physician. Pt reports he stepped on a tack 4 days ago, now puncture site is draining and painful. Reports the tack was intact when removed. . Historical: - Allergies: 16:11 No Known Allergies; ll1 - PMHx: 16:11 Asperger syndrome; joint issues; ll1 - PSHx: 16:11 Appendectomy; ll1 - Immunization history:: Flu vaccine is up to date. - Social history:: Smoking status: Patient denies any tobacco usage or history of. Patient/guardian denies using alcohol, street drugs, tobacco products. ROS: 16:53 Constitutional: Negative for fever, chills, and weight loss, Cardiovascular: Negative kb for chest pain, palpitations, and edema, Respiratory: Negative for shortness of breath, cough, wheezing, and pleuritic chest pain, Abdomen/GI: Negative for abdominal pain, nausea, vomiting, diarrhea, and constipation, Back: Negative for injury and pain, MS/Extremity: Negative for injury and deformity, Neuro: Negative for headache, weakness, numbness, tingling, and seizure. 16:53 Skin: Positive for puncture, of the heel of right foot. Exam: 16:53 Constitutional: This is a well developed, well nourished patient who is awake, alert, kb and in no acute distress. Head/Face: Normocephalic, atraumatic. Chest/axilla: Normal chest wall appearance and motion. Nontender with no deformity. No lesions are appreciated. Cardiovascular: Regular rate and rhythm with a normal S1 and S2. No gallops, murmurs, or rubs. Normal PMI, no JVD. No pulse deficits. Respiratory: Lungs have equal breath sounds bilaterally, clear to auscultation and percussion. No rales, rhonchi or wheezes noted. No increased work of breathing, no retractions or nasal flaring. Abdomen/GI: Soft, non-tender, with normal bowel sounds. No distension or tympany. No guarding or rebound. No evidence of tenderness throughout. MS/ Extremity: Pulses equal, no cyanosis. Neurovascular intact. Full, normal range of motion. Neuro: Awake and alert, GCS 15, oriented to person, place, time, and situation. Cranial nerves II-XII grossly intact. Motor strength 5/5 in all extremities. Sensory grossly intact. Cerebellar exam normal. Normal gait. 16:53 Skin: injury, puncture(s), that are superficial, of the heel of right foot, with drainage. Vital Signs: 16:09 BP 139 / 101; Pulse 104; Resp 17; Temp 99.3; Pulse Ox 98% ; Weight 92.99 kg; Height 5 ll1 ft. 11 in. (180.34 cm); Pain 1/10; 16:09 Body Mass Index 28.59 (92.99 kg, 180.34 cm) ll1 MDM: 16:45 Patient medically screened. kb 16:53 Data reviewed: vital signs, nurses notes. Data interpreted: Pulse oximetry: on room air kb is 98 %. Interpretation: normal. Counseling: I had a detailed discussion with the patient and/or guardian regarding: the historical points, exam findings, and any diagnostic results supporting the discharge/admit diagnosis, the need for outpatient follow up, a family practitioner, to return to the emergency department if symptoms worsen or persist or if there are any questions or concerns that arise at home. Administered Medications: 17:02 Drug: KeFLEX 500 mg Route: PO; 17:02 Follow up: Response: Medication administered at discharge. Disposition: 03/13 08:02 Co-signature as Attending Physician, Carlos Negrete MD I agree with the assessment and evelina plan of care. Disposition: 03/12/20 16:56 Discharged to Home. Impression: Puncture wound without foreign body of foot, Local infection of the skin and subcutaneous tissue, unspecified. - Condition is Stable. - Discharge Instructions: Puncture Wound, [id number], Wound Infection, Kpoj-js-Newp. - Prescriptions for Keflex 500 mg Oral Capsule - take 1 capsule by ORAL route every 8 hours for 10 days; 30 capsule. - Medication Reconciliation Form, Thank You Letter, Antibiotic Education, Prescription Opioid Use form. - Follow up: Emergency Department; When: As needed; Reason: Worsening of condition. Follow up: Private Physician; When: 2 - 3 days; Reason: Recheck today's complaints, Continuance of care, Re-evaluation by your physician. Signatures: Rebecca Weldon, MOVING WORKER-C MOVING WORKER-Ckb Carlos Negrete MD MD cha Baxter, Heather, RN RN Oralia Mares RN RN ll1 Corrections: (The following items were deleted from the chart) 03/12 17:03 16:56 03/12/2020 16:56 Discharged to Home. Impression: Puncture wound without foreign hb body of foot; Local infection of the skin and subcutaneous tissue, unspecified. Condition is Stable. Forms are Medication Reconciliation Form, Thank You Letter, Antibiotic Education, Prescription Opioid Use. Follow up: Emergency Department; When: As needed; Reason: Worsening of condition. Follow up: Private Physician; When: 2 - 3 days; Reason: Recheck today's complaints, Continuance of care, Re-evaluation by your physician. kb
--- NOTE | 2020-03-12 16:57 | ER ---
Nurse's Notes [facility] Name: Wicho Adams Age: 24 yrs Sex: Male : 1995 Arrival Date: 03/12/2020 Time: 16:05 Bed 12 Private MD: Diagnosis: Puncture wound without foreign body of foot;Local infection of the skin and subcutaneous tissue, unspecified Presentation: 03/12 16:09 Chief complaint: Patient states: Stepped on thumb tack 4 days ago. Started to get red, ll1 swollen, and draining pus now. Coronavirus screen: Client denies travel out of the [place] in the last 14 days. At this time, the client does not indicate any symptoms associated with coronavirus-19. Ebola Screen: Patient denies travel to an Ebola-affected area in the 21 days before illness onset. Initial Sepsis Screen: Does the patient meet any 2 criteria? HR > 90 bpm. Does the patient have a suspected source of infection? Yes: Skin breakdown/wound. Risk Assessment: Do you want to hurt yourself or someone else? Patient reports no desire to harm self or others. Onset of symptoms was March 09, 2020. 16:09 Method Of Arrival: Ambulatory ll1 16:09 Acuity: TAN 4 ll1 Historical: - Allergies: 16:11 No Known Allergies; ll1 - PMHx: 16:11 Asperger syndrome; joint issues; ll1 - PSHx: 16:11 Appendectomy; ll1 - Immunization history:: Flu vaccine is up to date. - Social history:: Smoking status: Patient denies any tobacco usage or history of. Patient/guardian denies using alcohol, street drugs, tobacco products. Screenin:48 Abuse screen: Denies threats or abuse. Denies injuries from another. Nutritional hb screening: No deficits noted. Tuberculosis screening: No symptoms or risk factors identified. Fall Risk None identified. Assessment: 16:48 General: Appears in no apparent distress. Behavior is calm, cooperative. Pain: ll1 Complains of pain in right heel. Derm: Wound noted right heel Wound is Small puncture wound to right heel. Very small white hardened area noted to center of heel. No drainage at this time. No fever. Reports pain. Injury Description: Puncture sustained to right heel. Vital Signs: 16:09 BP 139 / 101; Pulse 104; Resp 17; Temp 99.3; Pulse Ox 98% ; Weight 92.99 kg; Height 5 ll1 ft. 11 in. (180.34 cm); Pain /10; 16:09 Body Mass Index 28.59 (92.99 kg, 180.34 cm) ll1 ED Course: 16:05 Patient arrived in ED. mr 16:10 Triage completed. ll1 16:11 Arm band placed on Patient notified of wait time. ll1 16:13 [facility]C [facility]. kb 16:13 Carlos Negrete MD is Attending Physician. kb 16:46 Karina Hahn, RN is Primary Nurse. hb 16:48 Patient has correct armband on for positive identification. Call light in reach. hb 16:49 No provider procedures requiring assistance completed. Patient did not have IV access ll1 during this emergency room visit. Administered Medications: 17:02 Drug: KeFLEX 500 mg Route: PO; hb 17:02 Follow up: Response: Medication administered at discharge. hb Outcome: 16:56 Discharge ordered by MD. kb 17:03 Discharged to home ambulatory. hb 17:03 Condition: stable 17:03 Discharge instructions given to patient, Instructed on discharge instructions, follow up and referral plans. medication usage, wound care, Demonstrated understanding of instructions, follow-up care, medications, wound care, Prescriptions given X 1. 17:03 Patient left the ED. hb Signatures: Rebecca Weldon FNP-C FNP-Kapil Whitley Howe mr Karina Hahn, RN RN Oralia Mares RN RN ll1 Corrections: (The following items were deleted from the chart) 16:48 16:09 Acuity: TAN 3 ll1 ll1
[2020-03-12] MEDS ORDERED: CEPHALEXIN 250 MG CAP ONE (17:06)
[2020-03-12 17:18] VITALS: BP 139/101; TEMP 99.3; O2SAT 98
== END 2020-03-12 17:03 | disposition home or self-care (01) ==
LOC: ER 16:02
DX: L08.9 Local infection of the skin and subcutaneous tissue, unspecified (principal)
CPT/HCPCS: 99283

== ENCOUNTER 2020-10-09 05:42 | Emergency (ER) | payer OTHER ==
--- OUTSIDE RECORDS SUMMARY | 2020-10-09 05:45 | XMS REPORT | Continuity of Care Document ---
:1995 Author Organization [facility] t Address [address] [place] [address] Care Team Providers Name Role Phone MICHELLE Attending Clinician Unavailable MICHELLE Admitting Clinician Unavailable Problems Condition Condition Condition Status Onset Resolution Last Treating Co mments Source Name Details Category Date Date Treatment Clinician Date Pneumothor Pneumothor Disease Active [facility] Memory Problem Active [facility] deficit [facility] Pain in Pain in Diagnosis [facility] Pain in Pain in Diagnosis Active [facility] Allergies, Adverse Reactions, Alerts This patient has no known allergies or adverse reactions. Family History Family Member Diagnosis Comments Start Date Stop Date Source Maternal grandmother Arthritis [facility] Maternal grandmother Cancer [facility] Maternal grandmother Diabetes [facility] Maternal grandmother Hypertension [facility] Maternal grandmother Liver disease C [facility] Natural mother Arthritis [facility] Natural mother Hypertension [facility] Social History Social Habit Start Date Stop Date Quantity Comments Source Sex Assigned At [facility] Tobacco use and 2018-04-22 2018-04-22 Never used [facility] - exposure 00:00:00 00:00:00 [facility] Alcohol intake 2018-04-22 2018-04-[address] [facility] [address] [facility] - 00:[facility]:00 00:00:00 non-drinker of Medical Ce nter alcohol (finding) Smoking Status Start Date Stop Date Source Never sm[facility] Medications Ordered Filled Start Stop Current Ordering Indication Dosage Frequency Signature Comments Components Source Medication Medication Date Date Medication? Clinician (SIG) Name Name Meloxicam Meloxicam 2018- 2019- No Inna Newcomb [address] [facility] 9-18 08-28 [facility]00 [facility] walking walking Yes Inna Newcomb as [facility] boot boot 5-02 directed [facility] 00 [facility] Gabapentin Gabapentin Yes Inna Newcomb [address] [address] 4-25 before [facility] bed[facility] 00 [facility] Benadryl Benadryl Yes Inna Newcomb [address] [facility] Allergy Allergy as needed [facility] Procedures This patient has no known procedures. Plan of Care Planned Activity Planned Date Details Comments Source Future Scheduled 2020-04-[address] [facility] Test 00:00:00 (#1) [code = Medical Center INFLUENZA VACCINE (#1)] Encounters Start End Encounter Admission Attending Care Care Encounter Source Date/Time Date/Time Type Type Clinicians Facility Department ID 2018-04-30 2018-04-30 Outpatient Ricco Chackot [id number] [facility] 14:30[facility]00 14:30:00 [facility] Medicine Medicine Outpati ent Clinics 2017-12-28 2017-12-28 Outpatient Ricco [place] [id number] [facility] 14:39:00 14:39:00 [facility] Medicine Medicine Outpati ent Clinics 2017-12-13 2017-12-13 Outpatient Ricco [place] [id number] [address] 14:18:00 14:18:00 [facility] Medicine l Medicine Outpati ent Clinics 2017-12-12 2017-12-12 Outpatient Ricco [place] [id number] [facility] 16:19:00 16:19:00 [facility] Medicine [facility] 2017-12-05 2017-12-05 Outpatient Ricco Montero [id number] [address] 14:00:00 14:00:00 [facility] 2017-11-22 2017-11-22 Outpatient Ricco Montero [id number] [address] 15:15:[facility] 15:[facility] [facility] Results Test Description Test Time Test Comments Results Result Sourc e Comments RAD, CHEST, 1 2018-04-13 Reason for FINAL REPORT PATIENT ID: VIEW, NON DEPT 3 exam:->pneumot [id number] Chest one view 09:24:00 horaxShould INDICATION: Pneumothorax [...] intact. Signed: Edvin Garcia MDReport Verified Date/Time: 04/25/2018 09:24:12 Reading Location: [facility] Radiology Reading Room MIN B12 AND FOLATE 2018-04-25 02:48:00 Test Item Value Reference Range Interpretation Comme nts VITAMIN B12 (BEAKER) (test code = 774) < pg/mL 213-816 L FOLATE (BEAKER) (test code = 362) 2.4 ng/mL >=7.0 L VANCOMYCIN LEVEL, [id number] 02:10:00 Test Item Value Reference Range Interpretation Comments VANCOMYCIN TROUGH (BEAKER) (test 8.6 ug/mL 10.0-20.0 L code = 522) CT, CHEST, WITH [id number] 12:29:00Left pneumothorax and pneumediastinum with pneumoperitoneum and [...] MDReport Verified Date/Time: 04/24/2018 12:29:48 Reading Location: [facility] C0Y CT Body Reading Room CT, [id number] 12:29:00Left pneumothorax and pneumediastinum with pneumoperitoneum and [...] MDReport Verified Date/Time: 04/24/2018 12:29:48 Reading Location: [facility] C013Y CT Body Reading Room RAD, CHEST, 1 VIEW, NON [id number] 07:33:00Reason for exam:- >spontaneous PTX, pneumomediastinumShould this [...] MDReport Verified Date/Time: 04/24/2018 07:33:30 Reading Location: [facility] Radiology Reading Room HEPATIC FUNCTION [id number] 05:47:00 Test Item Value Reference Range Interpretation [...] = 15 U/L 6-55 347) BASIC METABOLIC [id number] 05:47:00 Test Item Value Reference Range Interpretation [...] NOT APPLICABLE FOR DIALYSIS PATIEN TS. PROTHROMBIN [id number] 05:42:00 Test Item Value Reference Range Interpretation [...] (test code = 2801) RAPID DRUG SCREEN, [id number] 13:53:00 Test Item Value Reference Range Interpretation [...] situations. Chain of custody not maintained. Some hmdg-vpo-suugnnt medications, as well as adulterants, may cause inaccurate results. Clinical correlation should be applied. A more comprehensive drug screen or confirmation of a detected drug may be performed upon request. [id number] 13:27:00 Test Item Value Reference Range Interpretation Comments ALPHA-1 ANTITRYPSIN 169.80 mg/dL 90.00-200.00 Specimen slightly (BEAKER) (test code = hemoly zed 502) [id number] 12:53:00 Test Item Value Reference Range Interpretation Comments HOMOCYSTEINE (BEAKER) (test code 40.2 umol/L 5.1-15.4 H = 642) HEPATIC FUNCTION [id number] 12:38:00 Test Item Value Reference Range Interpretation [...] 6-55 347) RAD, CHEST, 1 VIEW, NON [id number] 09:53:00Reason for exam:- >pneumothoraxShould this be performed [...] MDReport Verified Date/Time: 04/23/2018 09:53:45 Reading Location: [facility] Radiology Reading Room BASIC METABOLIC [id number] 05:54:00 Test Item Value Reference Range Interpretation [...] PATIEN TS. CBC W/PLT COUNT & AUTO [id number] 23:44:00 Test Item Value Reference Range Interpretation [...] EOSINOPHILS ABSOLUTE COUNT 0.16 K/ L 0.04-0.54 ([facility]) (test code = 416) BASOPHILS ABSOLUTE COUNT ([facility]) 0.04 K/ L 0.01-0.08 (test code = 417) IMMATURE GRANULOCYTES-RELATIVE 1 % 0-1 PERCENT ([facility]) (test code = 2801) POCT-GLUCOSE [id number] 21:08:00 Test Item Value Reference Range Interpretation Comments POC-GLUCOSE METER 133 mg/dL 70-[address] [facility] [address] ([facility]) (test code = [place] 1538) [address]
[2020-10-09 06:19] LABS: Hematocrit 40.1 % (39.6-49.0); MPV 8.7 fL (7.6-11.3); RBC Red Blood Cell Count 4.94 M/uL (4.33-5.43)
[2020-10-09 06:32] LABS: BUN Blood Urea Nitrogen 9 mg/dL (7-18); Bicarbonate 25 mmol/L (21-32); Glucose Level 123 mg/dL (74-106); Potassium 3.8 mmol/L (3.5-5.1); Sodium Level 142 mmol/L (136-145)
[2020-10-09 06:35] LABS: Urine Bacteria <20 /HPF (NONE SEEN); Urine RBC LOADED /HPF (NONE SEEN)
[2020-10-09] MEDS ORDERED: CEFTRIAXONE/SWI 1gm 1 GM/10 ML SYR ONE (09:21)
[2020-10-09] MEDS ORDERED: NA CHLORIDE 0.9% 1,000 ML ONE (09:21)
--- NOTE | 2020-10-09 09:30 | RAD REPORT ---
EXAM DESCRIPTION: RAD - Abdomen 1 View (KUB) - 10/09/2020 6:48 am CLINICAL HISTORY: fb in penis? Pain COMPARISON: Abdomen 1 View (KUB) dated 12/13/2017 FINDINGS: The bowel gas pattern is non-obstructive. No evidence of free air or pneumatosis. No suspi cious calcifications. No significant bony findings. Surgical clips right lower quadrant. IMPRESSION: Negative examination.
--- NOTE | 2020-10-09 09:36 | RAD REPORT ---
EXAM DESCRIPTION: CTAbdomen Pelvis W Contrast - 10/09/2020 9:28 am CLINICAL HISTORY: Abdominal pain. Abd pain;Hematuria COMPARISON: Abdomen Pelvis W Contrast dated 06/19/2019 TECHNIQUE: Biphasic CT imaging of the abdomen and pelvis was performed with 100 ml non-ionic IV cont rast. All CT scans are performed using dose optimization technique as appropriate and may include automated exposure control or mA/KV adjustment according to patient size. FINDINGS: The lung bases are clear. The liver, spleen, pancreas, adrenal glands and kidneys are within normal limits. No bowel obstruction, free air, free fluid or abscess. Moderate stool throughout the colon. Appendect cande. No evidence of significant lymphadenopathy. Small fat containing umbilical hernia. No suspicious bony findings. IMPRESSION: No acute intra-abdominal or pelvic finding.
--- NOTE | 2020-10-09 09:42 | EDPHYS ---
Physician Documentation [facility] Name: Wicho Adams Age: 25 yrs Sex: Male : 1995 Arrival Date: 10/09/2020 Time: 05:42 Bed 7 Private MD: ED Physician Carlos Negrete HPI: 10/09 05:54 This 25 yrs old Male presents to ER via EMS with complaints of Penile ps1 Bleeding. 05:54 Patient states that he had atraumatic gross hematuria. He reportedly went to dump out a ps1 urinal for his bed bound family member and laid on his bed. He felt a pop and started "spraying" blood from his penis. Denies FB or any reason this should have happened. Not on blood thinners and does not take any medications. BIBEMS covered in blood on hands and feet. Clots from the meatus. . Historical: - Allergies: 05:54 No Known Allergies; rr5 - Home Meds: 05:54 None [Active]; rr5 - PMHx: 05:54 Asperger syndrome; joint issues; autism; rr5 - Immunization history:: Adult Immunizations unknown. - Social history:: Smoking status: unknown. ROS: 05:54 Constitutional: Negative for fever, chills, and weight loss. ps1 05:54 Constitutional: Negative for fever, chills, and weight loss, Cardiovascular: Negative for chest pain, palpitations, and edema, Respiratory: Negative for shortness of breath, cough, wheezing, and pleuritic chest pain, Abdomen/GI: Negative for abdominal pain, nausea, vomiting, diarrhea, and constipation, Skin: Negative for injury, rash, and discoloration, Neuro: Negative for headache, weakness, numbness, tingling, and seizure, Psych: Negative for depression, anxiety, suicide ideation, homicidal ideation, and hallucinations. 05:54 : Positive for hematuria. Exam: 05:54 Constitutional: This is a well developed, well nourished patient who is awake, alert, ps1 and in no acute distress. Head/Face: Normocephalic, atraumatic. Cardiovascular: Regular rate and rhythm. No gallops, murmurs, or rubs. Normal PMI, no JVD. No pulse deficits. Respiratory: Lungs have equal breath sounds bilaterally, clear to auscultation and percussion. No rales, rhonchi or wheezes noted. No increased work of breathing, no retractions or nasal flaring. Abdomen/GI: Soft, non-tender, with normal bowel sounds. No distension or tympany. No guarding or rebound. No evidence of tenderness throughout. 05:54 Constitutional: The patient appears covered in dried blood on feet arms and groin 05:54 : Male external genitalia: Circumcision noted. gross hematuria from meatus. 09:07 Abdomen/GI: Rectal exam: is unremarkable, Prostate: normal, rectal tone normal, Stool: evelina guaiac negative, hemorrhoid(s), are not appreciated, mass, is not appreciated, swelling, is not appreciated, tenderness, is not appreciated, fecal impaction, is not appreciated, none. Vital Signs: 05:50 BP 126 / 82; Pulse 88; Resp 17; Temp 98.7; Pulse Ox 97% ; Weight 90.72 kg; Height 5 ft. rr5 10 in. (177.80 cm); Pain 0/10; 06:30 BP 127 / 70; Pulse 80; Resp 16; Pulse Ox 98% ; rr5 08:30 BP 124 / 72; Pulse 78; Resp 16; Pulse Ox 100% on R/A; hb 05:50 Body Mass Index 28.70 (90.72 kg, 177.80 cm) rr5 MDM: 06:05 Patient medically screened. ps1 08:50 Differential diagnosis: UTI. Data reviewed: vital signs, nurses notes, lab test evelina result(s), EKG, radiologic studies, CT scan. 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 Counseling: I had a detailed discussion with the patient and/or guardian regarding: the historical points, exam findings, and any diagnostic results supporting the discharge/admit diagnosis, lab results, radiology results. 10/09 05:51 Order name: CBC w/o diff; Complete Time: 06:25 ps1 10/09 05:51 Order name: BMP; Complete Time: 06:33 ps1 10/09 06:03 Order name: Urine Microscopic Only; Complete Time: 06:41 rr5 10/09 08:34 Order name: SARS-COV-2 RT PCR; Complete Time: 09:29 EDMS 10/09 05:51 Order name: Abdomen 1 View (KUB) XRAY [facility] 10/09 06:30 Order name: IV Start; Complete Time: 06:30 rr5 10/09 08:50 Order name: CT Abd/Pelvis - IV Contrast Only [facility] 10/09 09:49 Order name: Bladder Scanner; Complete Time: 10:57 [facility] Administered Medications: 09:10 Drug: NS 0.9% 1000 ml Route: IV; Rate: 1 bolus; Site: right antecubital; hb 09:13 Drug: Rocephin 1 grams Route: IV; Rate: bolus; Site: right antecubital; hb 09:15 Follow up: IV Status: Completed infusion; IV Intake: 10ml hb 09:54 Follow up: Response: No adverse reaction hb 09:53 Drug: Cipro 500 mg Route: PO; hb Disposition: 10/09/20 09:41 Discharged to Home. Impression: Hematuria. - Condition is Stable. - Discharge Instructions: Hematuria, Adult. - Prescriptions for Flomax 0.4 mg Oral Capsule, Sust. Release 24 hr - take 1 capsule by ORAL route once daily 1/2 hour following the same meal each day; 30 capsule. Cipro 500 mg Oral Tablet - take 1 tablet by ORAL route every 12 hours for 7 days; 14 tablet. - Medication Reconciliation Form, Thank You Letter, Antibiotic Education, Prescription Opioid Use form. - Follow up: Private Physician; When: 2 - 3 days; Reason: Recheck today's complaints, Continuance of care, Re-evaluation by your physician. Follow up: Mynor Lopez; When: 2 - 3 days; Reason: Recheck today's complaints, Re-evaluation by your physician. - Problem is new. - Symptoms have improved. Signatures: Dispatcher [employer] EDMS Carlos Negrete MD MD [facility] Karina Hahn, RN RN Errol Angel MD MD ps1 Gaetano Carreon, RN RN rr5 Corrections: (The following items were deleted from the chart) 06:23 05:51 Urine Dipstick-Ancillary ordered. ps1 rr5 07:19 06:41 URINALYSIS+U.LAB.BRZ ordered. EDMS EDMS 07:55 07:12 CORONAVIRUS+MR.LAB.BRZ ordered. EDMS EDMS 08:20 07:37 Urethrocystogrphy Retrograde ordered. EDMS EDMS 11:35 09:41 10/09/2020 09:41 Discharged to Home. Impression: Hematuria. Condition is Stable. hb Discharge Instructions: Hematuria, Adult. Prescriptions for Flomax 0.4 mg Oral Capsule, Sust. Release 24 hr - take 1 capsule by ORAL route once daily 1/2 hour following the same meal each day; 30 capsule, Cipro 500 mg Oral Tablet - take 1 tablet by ORAL route every 12 hours for 7 days; 14 tablet. and Forms are Medication Reconciliation Form, Thank You Letter, Antibiotic Education, Prescription Opioid Use. Follow up: Private Physician; When: 2 - 3 days; Reason: Recheck today's complaints, Continuance of care, Re-evaluation by your physician. Follow up: Mynor Lopez; When: 2 - 3 days; Reason: Recheck today's complaints, Re-evaluation by your physician. Problem is new. Symptoms have improved. evelina
--- NOTE | 2020-10-09 09:42 | ER ---
Nurse's Notes [facility] Name: Wicho Adams Age: 25 yrs Sex: Male : 1995 Arrival Date: 10/09/2020 Time: 05:42 Bed 7 Private MD: Diagnosis: Hematuria Presentation: 10/09 05:50 Chief complaint: EMS states: he woke up feels like he wants to pee, suddenly he noticed rr5 he is bleeding from his urethra. no trauma, no history of renal failure or UTI. Coronavirus screen: Client denies travel out of the [place] in the last 14 days. At this time, the client does not indicate any symptoms associated with coronavirus-19. Ebola Screen: Patient negative for fever greater than or equal to 101.5 degrees Fahrenheit, and additional compatible Ebola Virus Disease symptoms Patient denies exposure to infectious person. Patient denies travel to an Ebola-affected area in the 21 days before illness onset. Initial Sepsis Screen: Does the patient meet any 2 criteria? No. Patient's initial sepsis screen is negative. Does the patient have a suspected source of infection? No. Patient's initial sepsis screen is negative. Risk Assessment: Do you want to hurt yourself or someone else? Patient reports no desire to harm self or others. Onset of symptoms was October 09, 2020. 05:50 Method Of Arrival: EMS: [facility] rr5 05:50 Acuity: TAN 3 rr5 Historical: - Allergies: 05:54 No Known Allergies; rr5 - Home Meds: 05:54 None [Active]; rr5 - PMHx: 05:54 Asperger syndrome; joint issues; autism; rr5 - Immunization history:: Adult Immunizations unknown. - Social history:: Smoking status: unknown. Screenin:57 Abuse screen: Denies threats or abuse. Denies injuries from another. Nutritional rr5 screening: No deficits noted. Tuberculosis screening: No symptoms or risk factors identified. Fall Risk IV access (20 points). Total Barnes Fall Scale indicates No Risk (0-24 pts). Assessment: 06:00 General: Appears in no apparent distress. comfortable, Behavior is calm, cooperative, rr5 appropriate for age. Pain: Denies pain. Neuro: Level of Consciousness is awake, alert, obeys commands, Oriented to person, place, time. Cardiovascular: Capillary refill < 3 seconds Patient's skin is warm and dry. Respiratory: Airway is patent Respiratory effort is even, unlabored, Respiratory pattern is regular, symmetrical. GI: No signs and/or symptoms were reported involving the gastrointestinal system. : Urine is china blood, Reports penile bleeding. EENT: No signs and/or symptoms were reported regarding the EENT system. Derm: Skin is intact, is healthy with good turgor, Skin temperature is warm. Musculoskeletal: Capillary refill < 3 seconds. 06:05 Reassessment: bloody urine, send for urine microscopy. rr5 07:15 Reassessment: Patient appears in no apparent distress at this time. Patient and/or hb family updated on plan of care and expected duration. Pain level reassessed. Patient is alert, oriented x 3, equal unlabored respirations, skin warm/dry/pink. 08:32 Reassessment: Patient appears in no apparent distress at this time. Patient and/or hb family updated on plan of care and expected duration. Pain level reassessed. Patient is alert, oriented x 3, equal unlabored respirations, skin warm/dry/pink. 09:14 Reassessment: Patient appears in no apparent distress at this time. Patient and/or hb family updated on plan of care and expected duration. Pain level reassessed. Patient is alert, oriented x 3, equal unlabored respirations, skin warm/dry/pink. 10:00 Reassessment: Patient appears in no apparent distress at this time. No changes from hb previously documented assessment. Patient and/or family updated on plan of care and expected duration. Pain level reassessed. 10:58 Reassessment: Patient appears in no apparent distress at this time. No changes from hb previously documented assessment. Patient and/or family updated on plan of care and expected duration. Pain level reassessed. 10:59 Reassessment: Uncle Garrett [phone]. Awaiting transportation at this time. Vital Signs: 05:50 BP 126 / 82; Pulse 88; Resp 17; Temp 98.7; Pulse Ox 97% ; Weight 90.72 kg; Height 5 ft. rr5 10 in. (177.80 cm); Pain 0/10; 06:30 BP 127 / 70; Pulse 80; Resp 16; Pulse Ox 98% ; rr5 08:30 BP 124 / 72; Pulse 78; Resp 16; Pulse Ox 100% on R/A; hb 05:50 Body Mass Index 28.70 (90.72 kg, 177.80 cm) rr5 ED Course: 05:42 Patient arrived in ED. cl3 05:43 Errol Angel MD is Attending Physician. ps1 05:50 Geatano Carreon, RN is Primary Nurse. rr5 05:54 Triage completed. rr5 05:57 Arm band placed on right wrist. rr5 05:57 Patient has correct armband on for positive identification. Placed in gown. Bed in low rr5 position. Call light in reach. Side rails up X2. Pulse ox on. NIBP on. 06:05 Urine collected: clean catch specimen, china blood. rr5 06:16 Inserted saline lock: 20 gauge in right forearm, using aseptic technique. Blood oe collected. 06:48 Abdomen 1 View (KUB) XRAY In Process Unspecified. EDMS 08:41 Attending Physician role handed off by Errol Angel MD evelina 08:41 Carlos Negrete MD is Attending Physician. evelina 09:28 CT Abd/Pelvis - IV Contrast Only In Process Unspecified. EDMS 09:41 Mynor Lopez MD is Referral Physician. evelina 10:58 Bladder scan completed. Post void 29mls. hb 10:59 No provider procedures requiring assistance completed. IV discontinued, intact, hb bleeding controlled, No redness/swelling at site. Administered Medications: 09:10 Drug: NS 0.9% 1000 ml Route: IV; Rate: 1 bolus; Site: right antecubital; hb 09:13 Drug: Rocephin 1 grams Route: IV; Rate: bolus; Site: right antecubital; hb 09:15 Follow up: IV Status: Completed infusion; IV Intake: 10ml hb 09:54 Follow up: Response: No adverse reaction hb 09:53 Drug: Cipro 500 mg Route: PO; hb Intake: 09:15 IV: 10ml; Total: 10ml. hb Outcome: 09:41 Discharge ordered by . evelina 10:59 Discharged to home ambulatory. hb 10:59 Condition: stable 10:59 Discharge instructions given to patient, Instructed on discharge instructions, follow up and referral plans. medication usage, Demonstrated understanding of instructions, follow-up care, medications, Prescriptions given X 2. 11:35 Patient left the ED. hb Signatures: Dispatcher [employer] Carlos Randall MD MD cha Baxter, Heather, RN RN hb Rolando Xavier Phillip, MD MD [facility] Gaetano Carreon RN RN rr5 Kelly Mares cl3
[2020-10-09] MEDS ORDERED: CIPROFLOXACIN HCL 500 MG TAB ONE (10:07)
[2020-10-09 11:43] VITALS: TEMP 98.7
[2020-10-09 11:46] VITALS: BP 124/72; O2SAT 100
== END 2020-10-09 11:35 | disposition home or self-care (01) ==
LOC: ER 05:42
DX: R31.9 Hematuria, unspecified (principal); Z20.822 Contact with and (suspected) exposure to COVID-19; F84.5 Asperger's syndrome
CPT/HCPCS: 80048; 36415; 85027; 81015; 74177; 74018; 96374; 99284; U0003; Q9967; J0696; J7030

== ENCOUNTER 2020-12-12 14:11 | Emergency (ER) | payer OTHER ==
--- OUTSIDE RECORDS SUMMARY | 2020-12-12 14:13 | XMS REPORT | Continuity of Care Document ---
:1995 Author Organization [facility] t Address [address] [place] [address] Care Team Providers Name Role Phone MICHELLE Attending Clinician Unavailable MICHELLE Admitting Clinician Unavailable Problems Condition Condition Condition Status Onset Resolution Last Treating Co mments Source Name Details Category Date Date Treatment Clinician Date Pneumothor Pneumothor Disease Active [facility] Memory Memory Problem Active [facility] deficit [facility] Pain in Pain in Diagnosis [facility] Pain in Pain in Diagnosis [facility] Allergies, Adverse Reactions, Alerts This patient has no known allergies or adverse reactions. Family History Family Member Diagnosis Comments Start Date Stop Date Source Maternal grandmother Arthritis [facility] Maternal grandmother Cancer [facility] Maternal grandmother Diabetes [facility] Maternal grandmother Hypertension [facility] Maternal grandmother Liver disease C [facility] Natural mother Arthritis [facility] Natural mother Hypertension [facility] Social History Social Habit Start Date Stop Date Quantity Comments Source Sex Assigned At [facility] Tobacco use and 2018-04-22 2018-04-22 Never used [facility] - exposure 00:00:00 00:00:00 [facility] Alcohol intake 2018-04-22 2018-04-22 Current [facility] [...] Name Meloxicam Meloxicam 2018- 2019- No Inna Hubbell [address] [facility] 9-18 08-28 [facility] walking walking Yes Inna Hubbell as [facility] boot boot 5-02 directed [facility] Gabapentin Gabapentin Yes Inna Hubbell [address] [facility] [address] 4-25 before [facility] 00 [facility] Benadryl Benadryl Yes Inna Hubbell [address] [facility] [address] Allergy Allergy as needed [facility] Clinics Procedures This patient has no known procedures. Plan of Care Planned Activity Planned Date Details Comments Source Future Scheduled 2020-04-[address] [facility] 00[facility]00:00 (#1) [code = [facility] Center INFLUENZA VACCINE (#1)] Encounters Start End Encounter Admission Attending Care Care Encounter Source Date/Time Date/Time Type Type Clinicians Facility Department ID 2018-04-30 2018-04-30 Outpatient Ricco Chackot [id number] [facility] [address] 14[facility]30[facility]00 [facility] Medicine Medicine Outpati ent Clinics 2017-12-28 2017-12-28 [facility] [id number] [facility] [address] 14[facility]00 14[facility]00 [facility] Medicine l Medicine Outpati ent Clinics 2017-12-13 2017-12-13 [facility] [id number] [address] 14:18[facility]00 14:18:00 [facility] Medicine l Medicine Outpati ent Clinics 2017-12-12 2017-12-12 [place] [id number] [address] 16:19[facility]00 16:[facility]:00 [facility] Medicine Medicine Outpati ent Clinics 2017-12-05 2017-12-05 Outpatient Ricco Montero [id number] [facility] 14:00:00 14:00:00 [facility] 2017-11-22 2017-11-22 Outpatient Ricco Montero [id number] 15:15:00 15:15:00 [facility] Results Test Description Test Time Test Comments Results Result Sourc e Comments RAD, CHEST, 1 2018-04-13 Reason for FINAL REPORT PATIENT ID: VIEW, NON DEPT 3 exam:->pneumot [id number] Chest one view 09:24:00 horaxShould INDICATION: Pneumothorax [...] MDReport Verified Date/Time: 04/25/2018 09:24:12 Reading Location: [facility] Radiology Reading Room MIN B12 AND FOLATE 2018-04-25 02:48:00 Test Item Value Reference Range Interpretation Comme nts VITAMIN B12 (BEAKER) (test code = 774) < pg/mL 213-816 L FOLATE (BEAKER) (test code = 362) 2.4 ng/mL >=7.0 L VANCOMYCIN LEVEL, [id number] 02:10:00 Test Item Value Reference Range Interpretation Comments VANCOMYCIN TROUGH (BEAKER) (test 8.6 ug/mL 10.0-20.0 L code = 522) CT, CHEST, WITH [id number] 12:29:00Left pneumothorax and pneumediastinum with pneumoperitoneum and [...] MDReport Verified Date/Time: 04/24/2018 12:29:48 Reading Location: [facility] C013[facility] CT Body Reading Room CT, [id number] 12:29:00Left pneumothorax and pneumediastinum with pneumoperitoneum and [...] MDReport Verified Date/Time: 04/24/2018 12:29:48 Reading Location: [facility] C013[facility] CT Body Reading Room RAD, CHEST, 1 VIEW, NON [id number] 07:33:00Reason for exam:- >spontaneous PTX, pneumomediastinumShould this [...] MDReport Verified Date/Time: 04/24/2018 07:33:30 Reading Location: [facility] Radiology Reading Room HEPATIC FUNCTION [id number] 05:47:00 Test Item Value Reference Range Interpretation [...] = 15 U/L 6-55 347) BASIC METABOLIC [id number] 05:47:00 Test Item Value Reference Range Interpretation [...] NOT APPLICABLE FOR DIALYSIS PATIEN TS. PROTHROMBIN [id number] 05:42:00 Test Item Value Reference Range Interpretation [...] (test code = 2801) RAPID DRUG SCREEN, [id number] 13:53:00 Test Item Value Reference Range Interpretation [...] situations. Chain of custody not maintained. Some tybb-vzp-usjkayw medications, as well as adulterants, may cause inaccurate results. Clinical correlation should be applied. A more comprehensive drug screen or confirmation of a detected drug may be performed upon request. [id number] 13:27:00 Test Item Value Reference Range Interpretation Comments ALPHA-1 ANTITRYPSIN 169.80 mg/dL 90.00-200.00 Specimen slightly (BEAKER) (test code = hemoly zed 502) [id number] 12:53:00 Test Item Value Reference Range Interpretation Comments HOMOCYSTEINE (BEAKER) (test code 40.2 umol/L 5.1-15.4 H = 642) HEPATIC FUNCTION [id number] 12:38:00 Test Item Value Reference Range Interpretation [...] 6-55 347) RAD, CHEST, 1 VIEW, NON [id number] 09:53:00Reason for exam:- >pneumothoraxShould this be performed [...] MDReport Verified Date/Time: 04/23/2018 09:53:45 Reading Location: [facility] Radiology Reading Room BASIC METABOLIC [id number] 05:54:00 Test Item Value Reference Range Interpretation [...] PATIEN TS. CBC W/PLT COUNT & AUTO [id number] 23:44:00 Test Item Value Reference Range Interpretation [...] EOSINOPHILS ABSOLUTE COUNT 0.16 K/ L 0.04-0.54 ([facility]) (test code = 416) BASOPHILS ABSOLUTE COUNT ([facility]) 0.04 K/ L 0.01-0.08 (test code = 417) IMMATURE GRANULOCYTES-RELATIVE 1 % 0-1 PERCENT ([facility]) (test code = 2801) POCT-GLUCOSE [id number] 21:08:00 Test Item Value Reference Range Interpretation Comments POC-GLUCOSE METER 133 mg/dL 70-110 H TESTED AT [facility] 6720 ([facility]) (test code = CHIRAG CRUZ 1538) [id number]
[2020-12-12] MEDS ORDERED: CYCLOBENZAPRINE 10 MG TAB ONE (16:21)
[2020-12-12] MEDS ORDERED: KETOROLAC 30 MG/ML INJ ONE (16:21)
[2020-12-12] MEDS ORDERED: LIDOCAINE 4% PATCH ONE (16:21)
--- NOTE | 2020-12-12 16:52 | ER ---
Nurse's Notes [facility] Name: Wicho Adams Age: 25 yrs Sex: Male : 1995 Arrival Date: 12/12/2020 Time: 14:11 Bed 23 Private MD: Diagnosis: Strain of muscle and tendon of back wall of thorax Presentation: 12/12 14:34 Chief complaint: Patient states: UPPER back pain , between shoulder blades 3 days [employer]. ca1 Also, reports stiff neck and couldn't lift arms with pain. Denies injury. Coronavirus screen: Client denies travel out of the [place] in the last 14 days. At this time, the client does not indicate any symptoms associated with coronavirus-19. Ebola Screen: Patient negative for fever greater than or equal to 101.5 degrees Fahrenheit, and additional compatible Ebola Virus Disease symptoms Patient denies exposure to infectious person. Patient denies travel to an Ebola-affected area in the 21 days before illness onset. No symptoms or risks identified at this time. Initial Sepsis Screen: Does the patient meet any 2 criteria? No. Patient's initial sepsis screen is negative. Does the patient have a suspected source of infection? No. Patient's initial sepsis screen is negative. Risk Assessment: Do you want to hurt yourself or someone else? Patient reports no desire to harm self or others. Onset of symptoms was December 12, 2020. 14:34 Method Of Arrival: Ambulatory ca1 14:34 Acuity: TAN 4 ca1 Historical: - Allergies: 14:36 No Known Allergies; ca1 - Home Meds: 14:36 None [Active]; ca1 - PMHx: 14:36 Asperger syndrome; Autism; joint issues; ca1 - PSHx: 14:36 Appendectomy; ca1 - Immunization history:: Client reports having NOT received the Covid vaccine. Flu vaccine is not up to date. - Social history:: Smoking status: Patient denies any tobacco usage or history of. Screenin:00 Abuse screen: Denies threats or abuse. Nutritional screening: No deficits noted. aa5 Tuberculosis screening: No symptoms or risk factors identified. Fall Risk None identified. Assessment: 16:00 General: Appears uncomfortable, Behavior is calm, cooperative. Pain: Complains of pain aa5 in thoracic area Pain currently is 2 out of 10 on a pain scale. Is continuous, Aggravated by movement. Neuro: Level of Consciousness is awake, alert, obeys commands, Oriented to person, place, time, situation. Cardiovascular: Patient's skin is warm and dry. Respiratory: Airway is patent Respiratory effort is even, unlabored, Respiratory pattern is regular, symmetrical. GI: No signs and/or symptoms were reported involving the gastrointestinal system. : No signs and/or symptoms were reported regarding the genitourinary system. EENT: No signs and/or symptoms were reported regarding the EENT system. Derm: Skin is pink, warm \T\ dry. Musculoskeletal: Range of motion: intact in all extremities. 16:51 Reassessment: Patient is alert, oriented x 3, equal unlabored respirations, skin aa5 warm/dry/pink. Pt reports mild improvement in pain.. Vital Signs: 14:36 BP 129 / 83; Pulse 78; Resp 18 S; Temp 97.5(TE); Pulse Ox 99% on R/A; Weight 95.25 kg ca1 (R); Height 5 ft. 11 in. (180.34 cm) (R); Pain 2/10; 14:36 Body Mass Index 29.29 (95.25 kg, 180.34 cm) ca1 ED Course: 14:11 Patient arrived in ED. as 14:35 Triage completed. ca1 14:36 Arm band placed on right wrist. ca1 15:46 Meir Caal NP is PHCP. pm1 15:46 Roc Mchugh MD is Attending Physician. pm1 15:59 Ania Durham, ALEXIA is Primary Nurse. aa5 16:00 Patient has correct armband on for positive identification. Bed in low position. Call aa5 light in reach. 17:10 No provider procedures requiring assistance completed. Patient did not have IV access aa5 during this emergency room visit. Administered Medications: 16:09 Drug: Lidoderm 5 % (700 mg/patch) 1 patches Route: Topical; Site: affected area; aa5 16:09 Drug: Flexeril (cyclobenzaprine) 10 mg Route: PO; aa5 16:09 Drug: TORadol (ketorolac) 60 mg Route: IM; Site: right gluteus; aa5 Outcome: 16:51 Discharge ordered by . pm1 17:10 Discharged to home ambulatory. aa5 17:10 Condition: stable 17:10 Discharge instructions given to patient, Instructed on discharge instructions, follow up and referral plans. medication usage, Demonstrated understanding of instructions, follow-up care, medications, Prescriptions given X 4. 17:15 Patient left the ED. aa5 Signatures: Cornelia Sharma Audri, RN RN aa5 Meir Caal, MARKETING DIRECTOR ASSISTED LIVING MARKETING DIRECTOR ASSISTED LIVING pm1 Cecilia Martinez RN RN ca1
--- NOTE | 2020-12-12 16:52 | EDPHYS ---
Physician Documentation [facility] Name: Wicho Adams Age: 25 yrs Sex: Male : 1995 Arrival Date: 12/12/2020 Time: 14:11 Bed 23 Private MD: ED Physician Roc Mchugh HPI: 12/12 16:09 This 25 yrs old Male presents to ER via Ambulatory with complaints of Back pm1 Pain. 16:09 The patient presents with pain that is acute. pm1 16:09 The symptoms are located in the thoracic area. Onset: The symptoms/episode pm1 began/occurred 3 day(s) ago. The pain does not radiate. Associated signs and symptoms: Pertinent negatives: abdominal pain, chest pain, shortness of breath . The problem was sustained sleeping in wrong position. Modifying factors: the patient symptoms are aggravated by movement, both arms and moving his neck. Severity of symptoms: in the emergency department the symptoms are unchanged. The patient has not experienced similar symptoms in the past. The patient has not recently seen a physician. Historical: - Allergies: 14:36 No Known Allergies; ca1 - Home Meds: 14:36 None [Active]; ca1 - PMHx: 14:36 Asperger syndrome; Autism; joint issues; ca1 - PSHx: 14:36 Appendectomy; ca1 - Immunization history:: Client reports having NOT received the Covid vaccine. Flu vaccine is not up to date. - Social history:: Smoking status: Patient denies any tobacco usage or history of. ROS: 16:09 Constitutional: Negative for fever, chills, and weight loss, Neck: Negative for injury, pm1 pain, and swelling, Cardiovascular: Negative for chest pain, palpitations, and edema, Respiratory: Negative for shortness of breath, cough, wheezing, and pleuritic chest pain, Abdomen/GI: Negative for abdominal pain, nausea, vomiting, diarrhea, and constipation. 16:09 MS/Extremity: Negative for injury and deformity, Skin: Negative for injury, rash, and discoloration, Neuro: Negative for headache, weakness, numbness, tingling, and seizure. 16:09 Back: Positive for of the thoracic area, pain. Exam: 16:09 Constitutional: This is a well developed, well nourished patient who is awake, alert, pm1 and in no acute distress. Head/Face: Normocephalic, atraumatic. Neck: Trachea midline, no thyromegaly or masses palpated, and no cervical lymphadenopathy. Supple, full range of motion without nuchal rigidity, or vertebral point tenderness. No Meningismus. Chest/axilla: Normal chest wall appearance and motion. Nontender with no deformity. No lesions are appreciated. 16:09 Skin: Warm, dry with normal turgor. Normal color with no rashes, no lesions, and no evidence of cellulitis. MS/ Extremity: Pulses equal, no cyanosis. Neurovascular intact. Full, normal range of motion. 16:09 Cardiovascular: Exam negative for acute changes, Rate: normal, Rhythm: regular, Pulses: no pulse deficits are appreciated. 16:09 Respiratory: Exam negative for acute changes, respiratory distress, shortness of breath. 16:09 Abdomen/GI: Exam negative for acute changes, Inspection: abdomen appears normal, Palpation: abdomen is soft and non-tender. 16:09 Back: muscle spasm, is appreciated in the thoracic area. 16:09 Neuro: Exam negative for acute changes, Orientation: is normal, Mentation: is normal, Motor: is normal, moves all fours. Vital Signs: 14:36 BP 129 / 83; Pulse 78; Resp 18 S; Temp 97.5(TE); Pulse Ox 99% on R/A; Weight 95.25 kg ca1 (R); Height 5 ft. 11 in. (180.34 cm) (R); Pain 2/10; 14:36 Body Mass Index 29.29 (95.25 kg, 180.34 cm) ca1 MDM: 15:59 Patient medically screened. pm1 16:49 Data reviewed: vital signs. Data interpreted: Pulse oximetry: on room air is 99 %. pm1 Interpretation: normal. Counseling: I had a detailed discussion with the patient and/or guardian regarding: the historical points, exam findings, and any diagnostic results supporting the discharge/admit diagnosis, the need for outpatient follow up, a family practitioner, to return to the emergency department if symptoms worsen or persist or if there are any questions or concerns that arise at home. Administered Medications: 16:09 Drug: Lidoderm 5 % (700 mg/patch) 1 patches Route: Topical; Site: affected area; aa5 16:09 Drug: Flexeril (cyclobenzaprine) 10 mg Route: PO; aa5 16:09 Drug: TORadol (ketorolac) 60 mg Route: IM; Site: right gluteus; aa5 Disposition: 12/12/20 16:51 Discharged to Home. Impression: Strain of muscle and tendon of back wall of thorax. - Condition is Stable. - Discharge Instructions: Muscle Strain. - Prescriptions for Lidoderm 5 % Topical adhesive patch,medicated - apply 1 patch by TRANSDERMAL route once daily As needed 12 hours on and 12 hours off in a 24 hour period; 15 Transdermal Patch. Tylenol- Codeine #3 300-30 mg Oral Tablet - take 2 tablets by ORAL route every 4-6 hours As needed; 20 tablet. Cyclobenzaprine 10 mg Oral Tablet - take 1 tablet by ORAL route every 8 hours As needed; 30 tablet. Diclofenac Sodium 75 mg Oral Tablet, Delayed Release (E.C.) - take 1 tablet by ORAL route 2 times per day As needed; 30 tablet. - Medication Reconciliation Form, Thank You Letter, Antibiotic Education, Prescription Opioid Use form. - Follow up: Emergency Department; When: As needed; Reason: Worsening of condition. Follow up: Private Physician; When: 2 - 3 days; Reason: Recheck today's complaints, Continuance of care, Re-evaluation by your physician. - Problem is new. - Symptoms have improved. Addendum: 12/15/2020 20:21 Co-signature as Attending Physician, Roc Mchugh MD I agree with the assessment m a2 and plan of care. Signatures: Ania Durham RN RN aa5 Meir Caal, EARTH SCIENCE PROFESSOR EARTH SCIENCE PROFESSOR pm1 Roc Mchugh MD MD ma2 Cceilia Martinez RN RN ca1 Corrections: (The following items were deleted from the chart) 12/12 17:15 16:51 12/12/2020 16:51 Discharged to Home. Impression: Strain of muscle and tendon of aa5 back wall of thorax. Condition is Stable. Forms are Medication Reconciliation Form, Thank You Letter, Antibiotic Education, Prescription Opioid Use. Follow up: Emergency Department; When: As needed; Reason: Worsening of condition. Follow up: Private Physician; When: 2 - 3 days; Reason: Recheck today's complaints, Continuance of care, Re-evaluation by your physician. Problem is new. Symptoms have improved. pm1
[2020-12-12 17:41] VITALS: BP 129/83; TEMP 97.5; O2SAT 99
== END 2020-12-12 17:15 | disposition home or self-care (01) ==
LOC: ER 14:11
DX: S29.012A Strain of muscle and tendon of back wall of thorax, initial encounter (principal); X58.XXXA Exposure to other specified factors, initial encounter; F84.5 Asperger's syndrome
CPT/HCPCS: 96372; 99283

== ENCOUNTER 2021-04-30 16:03 | Emergency (ER) | payer OTHER ==
[2021-04-30 16:39] LABS: Absolute Lymphocytes (CBC) 1.9 K/uL (0.7-4.9); Basophils % 0.8 % (0-1.3); Hematocrit 42.3 % (39.6-49.0); Lymphocytes % 22.9 % (15.3-44.8); MPV 8.2 fL (7.6-11.3); RBC Red Blood Cell Count 5.19 M/uL (4.33-5.43)
[2021-04-30 16:57] LABS: ALT/SGPT 62 U/L (12-78); AST/SGOT 28 U/L (15-37); Albumin 4.2 g/dL (3.4-5.0); Alkaline Phosphatase 57 U/L (45-117); BUN Blood Urea Nitrogen 8 mg/dL (7-18); Bicarbonate 24 mmol/L (21-32); Bilirubin Direct 0.2 mg/dL (0-0.2); Bilirubin Total 0.9 mg/dL (0.2-1.0); Glucose Level 98 mg/dL (74-106); Lipase 119 U/L (73-393); Potassium 3.8 mmol/L (3.5-5.1); Protein, Total 8.1 g/dL (6.4-8.2); Sodium Level 141 mmol/L (136-145)
[2021-04-30] MEDS ORDERED: NA CHLORIDE 0.9% 1,000 ML ONE (17:02)
--- NOTE | 2021-04-30 17:19 | RAD REPORT ---
EXAM DESCRIPTION: CT - Abdomen Pelvis W Contrast - 04/30/2021 5:05 pm CLINICAL HISTORY: ABD PAIN COMPARISON: CT study September 2020 TECHNIQUE: Biphasic, helical CT imaging of the abdomen and pelvis was performed following 100 ml non -ionic IV contrast. No oral contrast administered. All CT scans are performed using dose optimization technique as appropriate and may include automated exposure control or mA/KV adjustment according to patient size. FINDINGS: No suspicious findings in the lung bases. Diffuse fatty infiltration is present in the liver with no focal liver lesion. No portal vein abnorma lity. Pancreas and spleen are unremarkable. Gallbladder and biliary tree are also without suspicious finding. Symmetric renal function is seen with no hydronephrosis or suspicious renal mass. No pyelonephritis o r acute parenchymal process. No bladder abnormalities. No adrenal abnormalities. No stomach or small bowel abnormality. Appendectomy clips are present. Colon is not dilated. Moderate stool volume is present in the rectum and distal sigmoid colon. There is subtle congestion or edema in the fat adjacent to the transverse colon. The minimal colitis is possible. No free air, free flui d or pneumatosis. Small fat only umbilical hernia present. No bulky lymphadenopathy. No suspicious bony findings. IMPRESSION: Contrast enhanced CT abdomen and pelvis showing no emergent finding. There is subtle edema in the fat adjacent to the transverse colon possibly representing mild colitis. There is no colon wall thickening or mass. No other acute finding evident. Fatty infiltration of the liver.
--- NOTE | 2021-04-30 17:24 | EDPHYS ---
Physician Documentation [facility] Name: Wicho Adams Age: 25 yrs Sex: Male : 1995 Arrival Date: 04/30/2021 Time: 16:06 Bed 17 Private MD: Katlyn Mccall C ED Physician Cedrick Rees HPI: 04/30 16:24 This 25 yrs old Male presents to ER via Ambulatory with complaints of kb Abdominal Pain - lower. 16:24 The patient presents with abdominal pain right lower quadrant. Onset: The kb symptoms/episode began/occurred yesterday. The symptoms do not radiate. Associated signs and symptoms: Pertinent positives: diarrhea. The symptoms are described as intermittent. Modifying factors: The symptoms are alleviated by nothing, the symptoms are aggravated by nothing. Severity of pain: At its worst the pain was mild in the emergency department the pain is unchanged. The patient has not experienced similar symptoms in the past. The patient has not recently seen a physician. Historical: - Allergies: 16:13 No Known Allergies; aa5 - PMHx: 16:13 Asperger syndrome; Autism; joint issues; aa5 - Immunization history:: Client reports receiving the 1st dose of the Covid vaccine. - Social history:: Smoking status: Patient denies any tobacco usage or history of. ROS: 16:15 Constitutional: Negative for fever, chills, and weight loss. kb 16:15 Abdomen/GI: Positive for abdominal pain, diarrhea. 16:15 All other systems are negative. Exam: 16:15 Constitutional: This is a well developed, well nourished patient who is awake, alert, kb and in no acute distress. Head/Face: Normocephalic, atraumatic. ENT: Moist Mucous membranes Respiratory: Respirations even and unlabored. No increased work of breathing, no retractions or nasal flaring. Abdomen/GI: Soft, non-tender. No distention Skin: Warm, dry with normal turgor. Normal color. MS/ Extremity: Pulses equal, no cyanosis. Neurovascular intact. Full, normal range of motion. Neuro: Awake and alert, GCS 15, oriented to person, place, time, and situation. Moves all extremities. Normal gait. Psych: Awake, alert, with orientation to person, place and time. Behavior, mood, and affect are within normal limits. Vital Signs: 16:12 BP 153 / 87; Pulse 77; Resp 18 S; Temp 97.3(TE); Pulse Ox 98% on R/A; Weight 104.33 kg aa5 (R); Height 5 ft. 11 in. (180.34 cm) (R); 16:25 BP 127 / 93; Pulse 57; Resp 16; Pulse Ox 92% on R/A; kj1 18:00 BP 127 / 93; Pulse 78; Resp 20; Temp 97.5; Pulse Ox 95% ; bp 16:12 Body Mass Index 32.08 (104.33 kg, 180.34 cm) aa5 MDM: 16:15 Patient medically screened. kb 16:15 Data reviewed: vital signs, nurses notes. Data interpreted: Pulse oximetry: on room air kb is 98 %. Interpretation: normal. 17:22 Counseling: I had a detailed discussion with the patient and/or guardian regarding: the kb historical points, exam findings, and any diagnostic results supporting the discharge/admit diagnosis, lab results, radiology results, the need for outpatient follow up, a family practitioner, to return to the emergency department if symptoms worsen or persist or if there are any questions or concerns that arise at home. 04/30 16:15 Order name: Basic Metabolic Panel kb 04/30 16:15 Order name: CBC with Diff; Complete Time: 16:52 kb 04/30 16:15 Order name: Hepatic Function; Complete Time: 17:00 kb 04/30 16:15 Order name: Lipase; Complete Time: 17:00 kb 04/30 16:15 Order name: CT Abd/Pelvis - IV Contrast Only; Complete Time: 17:21 kb 04/30 16:15 Order name: Basic Metabolic Panel; Complete Time: 17:00 EDMS 04/30 16:15 Order name: IV Saline Lock; Complete Time: 16:45 kb 04/30 16:15 Order name: Labs collected and sent; Complete Time: 16:45 kb Administered Medications: 16:40 Drug: NS 0.9% 1000 ml Route: IV; Rate: 1000 ml; Site: left antecubital; bp 18:00 Follow up: IV Status: Completed infusion; IV Intake: 1000ml bp Disposition Summary: 04/30/21 17:23 Discharge Ordered Location: Home kb Condition: Stable kb Diagnosis - Colitis kb Followup: kb - With: Emergency Department - When: As needed - Reason: Worsening of condition Followup: kb - With: Private Physician - When: 2 - 3 days - Reason: Recheck today's complaints, Continuance of care, Re-evaluation by your physician Discharge Instructions: - Discharge Summary Sheet kb - Colitis kb Forms: - Medication Reconciliation Form kb - Thank You Letter kb - Antibiotic Education kb - Prescription Opioid Use kb Prescriptions: - Cipro 500 mg Oral Tablet - take 1 tablet by ORAL route every 12 hours for 7 days; 14 tablet; Refills: 0, kb Product Selection Permitted - Flagyl 500 mg Oral Tablet - take 1 tablet by ORAL route every 8 hours for 7 days; 21 tablet; Refills: 0, kb Product Selection Permitted Addendum: 05/02/2021 10:05 Co-signature as Attending Physician, Cedrick Rees MD I agree with the assessment and k dr plan of care. Signatures: Dispatcher [employer] EDMS Rebecca Weldon, WHOLESALE BUYER-C WHOLESALE BUYER-CkCedrick De La Garza MD MD [facility] Ania Durham, RN RN aa5 Patel Maria, RN RN bp
--- NOTE | 2021-04-30 17:24 | ER ---
Nurse's Notes [facility] Name: Wicho Adams Age: 25 yrs Sex: Male : 1995 Arrival Date: 04/30/2021 Time: 16:06 Bed 17 Private MD: Katlyn Mccall C Diagnosis: Colitis Presentation: 04/30 16:12 Chief complaint: Patient states: lower abd pain since yesterday. Pt states "the pain aa5 comes in waves". Pt also reports diarrhea, denies nausea/vomiting. Coronavirus screen: diarrhea. Ebola Screen: Patient negative for fever greater than or equal to 101.5 degrees Fahrenheit, and additional compatible Ebola Virus Disease symptoms. Initial Sepsis Screen: Does the patient meet any 2 criteria? No. Patient's initial sepsis screen is negative. Does the patient have a suspected source of infection? No. Patient's initial sepsis screen is negative. Risk Assessment: Do you want to hurt yourself or someone else? Patient reports no desire to harm self or others. Onset of symptoms was April 2021. 16:12 Method Of Arrival: Ambulatory aa5 16:12 Acuity: TAN 3 aa5 Triage Assessment: 16:15 General: Appears in no apparent distress. uncomfortable, obese, Behavior is bp cooperative, appropriate for age, anxious. Pain: Complains of pain in right lower quadrant and left lower quadrant. EENT: No deficits noted. Cardiovascular: No deficits noted. Respiratory: No deficits noted. GI: Abdomen is non-distended, Reports lower abdominal pain, nausea, vomiting. : No signs and/or symptoms were reported regarding the genitourinary system. Derm: No deficits noted. Musculoskeletal: No deficits noted. Historical: - Allergies: 16:13 No Known Allergies; aa5 - PMHx: 16:13 Asperger syndrome; Autism; joint issues; aa5 - Immunization history:: Client reports receiving the 1st dose of the Covid vaccine. - Social history:: Smoking status: Patient denies any tobacco usage or history of. Screenin:15 Abuse screen: Denies threats or abuse. Denies injuries from another. Nutritional bp screening: No deficits noted. Tuberculosis screening: No symptoms or risk factors identified. Fall Risk None identified. Assessment: 16:15 General: SEE TRIAGE NOTE. bp 18:00 Reassessment: No changes from previously documented assessment. Patient and/or family bp updated on plan of care and expected duration. Pain level reassessed. PT D/C HOME AMBULATORY. Vital Signs: 16:12 BP 153 / 87; Pulse 77; Resp 18 S; Temp 97.3(TE); Pulse Ox 98% on R/A; Weight 104.33 kg aa5 (R); Height 5 ft. 11 in. (180.34 cm) (R); 16:25 BP 127 / 93; Pulse 57; Resp 16; Pulse Ox 92% on R/A; kj1 18:00 BP 127 / 93; Pulse 78; Resp 20; Temp 97.5; Pulse Ox 95% ; bp 16:12 Body Mass Index 32.08 (104.33 kg, 180.34 cm) aa5 ED Course: 16:06 Patient arrived in ED. am2 16:07 Katlyn Mccall FNP is Private Physician. am2 16:10 [facility] kb 16:10 Cedrick Rees MD is Attending Physician. kb 16:12 Arm band placed on. aa5 16:13 Triage completed. aa5 16:15 Patient has correct armband on for positive identification. Bed in low position. Call bp light in reach. Side rails up X2. 16:25 Initial lab(s) drawn, by me, sent to lab. Inserted saline lock: 20 gauge in left kj1 antecubital area, using aseptic technique. Blood collected. 16:35 Patel Maria, RN is Primary Nurse. bp 16:53 CT Abd/Pelvis - IV Contrast Only Sent. bp 16:53 Basic Metabolic Panel Sent. bp 17:05 CT Abd/Pelvis - IV Contrast Only In Process Unspecified. EDMS 17:59 No provider procedures requiring assistance completed. IV discontinued, intact, rb3 bleeding controlled, No redness/swelling at site. Pressure dressing applied. Administered Medications: 16:40 Drug: NS 0.9% 1000 ml Route: IV; Rate: 1000 ml; Site: left antecubital; bp 18:00 Follow up: IV Status: Completed infusion; IV Intake: 1000ml bp Intake: 18:00 IV: 1000ml; Total: 1000ml. bp Outcome: 17:23 Discharge ordered by . kb 17:55 Patient left the ED. iw 17:55 Discharged to home ambulatory. rb3 17:55 Condition: stable 17:55 Discharge instructions given to patient, Instructed on discharge instructions, follow rb3 up and referral plans. medication usage, Demonstrated understanding of instructions, follow-up care, medications, Prescriptions given X 2. Signatures: Dispatcher [employer] Rebecca Jones, LUAN-Jude ROLAND-Yuly Roth RN RN iw Ania Durham RN RN aa5 Lauren Daniel am2 Patel Maria RN RN Lashanda Qureshi kj1 Roxie Black, RN RN rb3
[2021-04-30 19:27] VITALS: TEMP 97.3
[2021-04-30 19:28] VITALS: BP 127/93; O2SAT 92
== END 2021-04-30 17:55 | disposition home or self-care (01) ==
LOC: ER 16:03
DX: K52.9 Noninfective gastroenteritis and colitis, unspecified (principal)
CPT/HCPCS: 85025; 80048; 36415; 82565; 80076; 83690; 74177; 96360; 99284; Q9967; J7030

== ENCOUNTER 2021-05-10 19:52 | Emergency (ER) | payer OTHER ==
[2021-05-10] MEDS ORDERED: CEFAZOLIN SODIUM 1 GM/VIAL ONE (21:11)
[2021-05-10] MEDS ORDERED: TETANUS & DIPHTHERIA TOX,ADULT 0.5 ML VIAL ONE (21:12)
[2021-05-10] MEDS ORDERED: LIDOCAINE 1% MPF 5 ML VIAL ONE (21:12)
[2021-05-10] MEDS ORDERED: LIDOCAINE 1% MPF 30 ML VIAL ONE (21:25)
--- NOTE | 2021-05-10 21:38 | ER ---
Nurse's Notes [facility] Name: Wicho Adams Age: 25 yrs Sex: Male : 1995 Arrival Date: 05/10/2021 Time: 20:03 Bed 15 Private MD: Diagnosis: Leg Laceration/ Open wound of lower leg Presentation: 05/10 20:04 Chief complaint: Patient states: " cut my leg on a jordan tail pipe last night" Reports dc2 calling EMS this evening because the wound was still oozing when he woke up and he has not had tetanus in quite some time. Coronavirus screen: Vaccine status: Patient reports receiving the 2nd dose of the covid vaccine. Client denies travel out of the [place] in the last 14 days. At this time, the client does not indicate any symptoms associated with coronavirus-19. The client reports previous COVID testing was negative. Ebola Screen: Patient negative for fever greater than or equal to 101.5 degrees Fahrenheit, and additional compatible Ebola Virus Disease symptoms Patient denies exposure to infectious person. Patient denies travel to an Ebola-affected area in the 21 days before illness onset. No symptoms or risks identified at this time. 20:04 Method Of Arrival: EMS: [facility] dc2 20:05 Initial Sepsis Screen: Does the patient meet any 2 criteria? No. Patient's initial dc2 sepsis screen is negative. Risk Assessment: Do you want to hurt yourself or someone else? Patient reports no desire to harm self or others. Onset of symptoms was May 09, 2021 at 20:00. Care prior to arrival: states wrapped in toilet paper with a tourniquet last night. 20:05 Acuity: TAN 3 dc2 20:10 Initial Sepsis Screen: Does the patient have a suspected source of infection? No. dc2 Patient's initial sepsis screen is negative. Triage Assessment: 20:05 General: Appears in no apparent distress. obese, well developed. Pain: Denies pain. dc2 Neuro: No deficits noted. Derm: 6 cm laceration to inner lower right leg. Width 1/2 cm with no bleeding. Tiny amount of oozing. Appears to have dried blood in wound. Historical: - Allergies: 20:05 No Known Allergies; dc2 - PMHx: 21:00 Asperger syndrome; Autism; joint issues; dc2 - Immunization history:: Adult Immunizations up to date, Client reports receiving the 2nd dose of the Covid vaccine, Last tetanus immunization: unknown, Flu vaccine is up to date. - Social history:: Smoking status: Patient/guardian denies using street drugs, tobacco products. - Coronavirus screen:: The patient has NOT traveled to [place] in the past 14 days. The patient has NOT had contact with known/suspected case of Coronavirus?. - Ebola Screening: : Patient negative for fever greater than or equal to 101.5 degrees Fahrenheit, and additional compatible Ebola Virus Disease symptoms Patient denies exposure to infectious person Patient denies travel to an Ebola-affected area in the 21 days before illness onset. Screenin:05 Abuse screen: Denies threats or abuse. Denies injuries from another. Nutritional dc2 screening: No deficits noted. Tuberculosis screening: No symptoms or risk factors identified. Never had TB. Possible symptoms: None Risk factors: None. Fall Risk None identified. No fall in past 12 months (0 pts). No secondary diagnosis (0 pts). No IV (0 pts). Ambulatory Aid- None/Bed Rest/Nurse Assist (0 pts). Gait- Normal/Bed Rest/Wheelchair (0 pts) Mental Status- Oriented to own ability (0 pts). Total Barnes Fall Scale indicates No Risk (0-24 pts). Assessment: 20:05 Reassessment: Patient appears in no apparent distress at this time. General: Appears in dc2 no apparent distress. obese, well developed, Behavior is calm, cooperative. Pain: Denies pain. Complains of pain in medial aspect of right calf. Neuro: No deficits noted. Respiratory: No deficits noted. Derm: Laceration to right inner lower leg ryann 6cm in length and 1/2 cm in width. Bleeding controlled. Musculoskeletal: No deficits noted. 21:12 Reassessment: Provider at bedside for romie to leg wound, pt tolerate well. dc2 21:15 Reassessment: Dressing placed to leg. Crutch training provided by JESENIA Woods. Pt dc2 able to return demonstration. Will wait for ride in the lobby. Vital Signs: 20:05 BP 123 / 77; Pulse 66; Resp 17; Temp 98.2; Pulse Ox 100% on R/A; Weight 99.79 kg; dc2 Height 5 ft. 11 in. (180.34 cm); Pain 0/10; 20:05 BP 123 / 77; Pulse 66; Resp 17; Temp 98.2; Pulse Ox 100% ; Pain 0/10; dc2 21:20 BP 118 / 71; Pulse 62; Resp 17; Temp 97.5; Pulse Ox 99% on R/A; Pain 0/10; dc2 20:05 Body Mass Index 30.68 (99.79 kg, 180.34 cm) dc2 ED Course: 20:03 Patient arrived in ED. bp1 20:04 Mandi Sylvester, ALEXIA is Primary Nurse. dc2 20:05 En Muñoz PA is PHCP. jr8 20:05 Rustam Cornell MD is Attending Physician. jr8 20:05 Arm band placed on right wrist. Patient placed in an exam room, on pulse oximetry. dc2 20:10 Patient has correct armband on for positive identification. Bed in low position. Call dc2 light in reach. Side rails up X 1. 20:14 Triage completed. dc2 20:28 Wound care: to laceration was cleaned with Betadine, irrigated with normal saline. dc2 21:30 No provider procedures requiring assistance completed. IV discontinued, intact, dc2 bleeding controlled, No redness/swelling at site. Pressure dressing applied. Administered Medications: 20:54 Drug: Ancef (cefazolin) 1 grams Route: IM; Site: left gluteus; mr2 21:39 Follow up: Response: No adverse reaction dc2 20:54 Drug: Lidocaine (1 %) 1 vials Volume: 20 ml; Route: Infiltration; mr2 21:39 Follow up: Response: No adverse reaction dc2 20:56 Drug: Tetanus-Diphtheria Toxoid Adult 0.5 ml {Home Health Travel Pt: [employer]. Exp: mr2 11/11/2022. Lot #: [id number]. } Route: IM; Site: right deltoid; 21:39 Follow up: Response: No adverse reaction dc2 Outcome: 21:37 Discharge ordered by . jr8 21:40 Discharged to home with crutches. dc2 21:40 Condition: stable 21:40 Discharge instructions given to patient, Instructed on discharge instructions, follow up and referral plans. medication usage, crutch walking, Follow up to have romie removed in 10 days. 22:10 Patient left the ED. dc2 Signatures: En Muñoz PA PA jr8 [place] Mike RN RN mr2 Mandi Sylvester RN RN dc2
--- NOTE | 2021-05-10 21:38 | EDPHYS ---
Physician Documentation [facility] Name: Wicho Adams Age: 25 yrs Sex: Male : 1995 Arrival Date: 05/10/2021 Time: 20:03 Bed 15 Private MD: ED Physician Rustam Cornell HPI: 05/10 21:11 This 25 yrs old Male presents to ER via EMS with complaints of laceration leg.jr8 21:11 The patient has a laceration. Onset: The symptoms/episode began/occurred acutely, jr8 yesterday. Associated signs and symptoms: The patient has no apparent associated signs or symptoms. The patient has not experienced similar symptoms in the past. The patient has not recently seen a physician. Patient stated that he had missed out and ran his medial right ankle into his tailpipe last night causing laceration. Tried to approximate with home measures but continued to drain and ooze. Came in this evening for further evaluation. Denies any other trauma.. Historical: - Allergies: 20:05 No Known Allergies; dc2 - PMHx: 21:00 Asperger syndrome; Autism; joint issues; dc2 - Immunization history:: Adult Immunizations up to date, Client reports receiving the 2nd dose of the Covid vaccine, Last tetanus immunization: unknown, Flu vaccine is up to date. - Social history:: Smoking status: Patient/guardian denies using street drugs, tobacco products. - Coronavirus screen:: The patient has NOT traveled to [place] in the past 14 days. The patient has NOT had contact with known/suspected case of Coronavirus?. - Ebola Screening: : Patient negative for fever greater than or equal to 101.5 degrees Fahrenheit, and additional compatible Ebola Virus Disease symptoms Patient denies exposure to infectious person Patient denies travel to an Ebola-affected area in the 21 days before illness onset. ROS: 21:11 Eyes: Negative for injury, pain, redness, and discharge, ENT: Negative for injury, jr8 pain, and discharge, Neck: Negative for injury, pain, and swelling, Cardiovascular: Negative for chest pain, palpitations, and edema, Respiratory: Negative for shortness of breath, cough, wheezing, and pleuritic chest pain, Abdomen/GI: Negative for abdominal pain, nausea, vomiting, diarrhea, and constipation, Back: Negative for injury and pain, MS/Extremity: Negative for injury and deformity, Neuro: Negative for headache, weakness, numbness, tingling, and seizure. 21:11 Skin: Positive for laceration(s). Exam: 21:11 Constitutional: This is a well developed, well nourished patient who is awake, alert, jr8 and in no acute distress. Cardiovascular: Regular rate and rhythm with a normal S1 and S2. No gallops, murmurs, or rubs. Normal PMI, no JVD. No pulse deficits. Respiratory: Lungs have equal breath sounds bilaterally, clear to auscultation and percussion. No rales, rhonchi or wheezes noted. No increased work of breathing, no retractions or nasal flaring. MS/ Extremity: Pulses equal, no cyanosis. Neurovascular intact. Full, normal range of motion. Neuro: Awake and alert, GCS 15, oriented to person, place, time, and situation. Cranial nerves II-XII grossly intact. Motor strength 5/5 in all extremities. Sensory grossly intact. 21:11 Skin: Patient has approximately 10 cm right medial laceration to the distal tibia. No erythema or discharge noted. Wound appears contaminated.. Vital Signs: 20:05 BP 123 / 77; Pulse 66; Resp 17; Temp 98.2; Pulse Ox 100% on R/A; Weight 99.79 kg; dc2 Height 5 ft. 11 in. (180.34 cm); Pain 0/10; 20:05 BP 123 / 77; Pulse 66; Resp 17; Temp 98.2; Pulse Ox 100% ; Pain 0/10; dc2 21:20 BP 118 / 71; Pulse 62; Resp 17; Temp 97.5; Pulse Ox 99% on R/A; Pain 0/10; dc2 20:05 Body Mass Index 30.68 (99.79 kg, 180.34 cm) dc2 Laceration: 21:34 Wound Repair of 10cm ( 3.9in ) subcutaneous laceration to medial right ankle. Moderate jr8 contamination.. Distal neuro/vascular/tendon intact. Anesthesia: Local anesthetic administered with 10 mls of 1% lidocaine. Wound prep: Extensive cleansing with betadine, Wound irrigation with saline, Particulate matter removal of dirt, Wound debrided moderately, Wound explored extensively, Copious irrigation. Skin closed with 5 nick Nick using staple gun. Patient tolerated well. MDM: 20:21 Patient medically screened. jr8 21:34 Data reviewed: vital signs, nurses notes, and as a result, I will discharge patient. jr8 Data interpreted: Pulse oximetry: on room air is 100 %. Interpretation: normal. Counseling: I had a detailed discussion with the patient and/or guardian regarding: the historical points, exam findings, and any diagnostic results supporting the discharge/admit diagnosis, the need for outpatient follow up, a family practitioner, to return to the emergency department if symptoms worsen or persist or if there are any questions or concerns that arise at home. ED course: Discussed in detail with patient that this was a moderately contaminated wound and that he waited a long time to come in but that because of the extent of the wound and depth of the wound and needed primary closure. Discussed with him that we copiously washed it out with Betadine and saline solution. That margins and tissue looked clean post irrigation. Loosely closed it with nick. Patient will also be on antibiotics. Patient needs to watch this closely over the next several days and needs to follow-up with his primary care physician. If at any point he were to worsen or to become erythematic or he see purulent discharge immediately come back to the emergency room for further evaluation. Patient good with the plan at this time.. 05/10 21:36 Order name: Crutches; Complete Time: 21:39 jr8 Administered Medications: 20:54 Drug: Ancef (cefazolin) 1 grams Route: IM; Site: left gluteus; mr2 21:39 Follow up: Response: No adverse reaction dc2 20:54 Drug: Lidocaine (1 %) 1 vials Volume: 20 ml; Route: Infiltration; mr2 21:39 Follow up: Response: No adverse reaction dc2 20:56 Drug: Tetanus-Diphtheria Toxoid Adult 0.5 ml {[employer]: [employer]. Exp: mr2 11/11/2022. Lot #: [id number]. } Route: IM; Site: right deltoid; 21:39 Follow up: Response: No adverse reaction dc2 Disposition: 05/11 05:33 Co-signature as Attending Physician, Rustam Cornell MD. mh7 Disposition Summary: 05/10/21 21:37 Discharge Ordered Location: Home jr Problem: new jr8 Symptoms: have improved jr8 Condition: Stable jr8 Diagnosis - Leg Laceration/ Open wound of lower leg jr8 Followup: jr8 - With: Private Physician - When: 2 - 3 days - Reason: Wound Recheck, Recheck today's complaints, Continuance of care, Re-evaluation by your physician Discharge Instructions: - Discharge Summary Sheet jr8 - Laceration Care, Adult jr8 Forms: - Medication Reconciliation Form jr8 - Thank You Letter jr8 - Antibiotic Education jr8 - Prescription Opioid Use jr8 Prescriptions: - Bactrim DS 800-160 mg Oral Tablet - take 1 tablet by ORAL route every 12 hours for 7 days; 14 tablet; Refills: 0, jr8 Product Selection Permitted - levofloxacin 750 mg Oral Tablet - take 1 tablet by ORAL route once daily for 5 days; 5 tablet; Refills: 0, jr8 Product Selection Permitted Signatures: En Muñoz PA PA jr8 Rustam Cornell MD MD mh7 Andres Michel RN RN mr2 Nga, Mandi RN RN dc2 Corrections: (The following items were deleted from the chart) 05/10 21:50 21:11 Patient stated that he had missed out and ran his medial left ankle into his jr8 tailpipe last night causing laceration. Tried to approximate with home measures but continued to drain and ooze. Came in this evening for further evaluation. Denies any other trauma.. jr8 21:50 21:11 Skin: Patient has approximately 10 cm left medial laceration to the distal tibia. jr8 No erythema or discharge noted. Wound appears contaminated.. jr8
[2021-05-10 22:17] VITALS: BP 118/71; TEMP 97.5; O2SAT 99
== END 2021-05-10 22:10 | disposition home or self-care (01) ==
LOC: ER 19:52
PROC: 0JQQ0ZZ Repair Right Foot Subcutaneous Tissue and Fascia, Open Approach (ICD-10-PCS; principal; 2021-05-10)
DX: S91.011A Laceration without foreign body, right ankle, initial encounter (principal); W22.8XXA Striking against or struck by other objects, initial encounter; Z23 Encounter for immunization
CPT/HCPCS: 90471; 90714; 96372; 99284; 12004; J0690

== ENCOUNTER 2021-05-20 11:49 | Emergency (ER) | payer OTHER ==
--- NOTE | 2021-05-20 12:50 | ER ---
Nurse's Notes [facility] Name: Wicho Adams Age: 25 yrs Sex: Male : 1995 Arrival Date: 05/20/2021 Time: 11:51 Bed Waiting Private MD: Diagnosis: Encounter for removal of sutures Presentation: 05/20 12:07 Chief complaint: Patient states: Need romie removed from RLE. Placed here 10 days ll1 ago. No fever or redness. Coronavirus screen: Vaccine status: Patient reports receiving the 2nd dose of the covid vaccine. At this time, the client does not indicate any symptoms associated with coronavirus-19. Ebola Screen: Patient denies travel to an Ebola-affected area in the 21 days before illness onset. Initial Sepsis Screen: Does the patient meet any 2 criteria? No. Patient's initial sepsis screen is negative. Does the patient have a suspected source of infection? Yes: Skin breakdown/wound. Risk Assessment: Do you want to hurt yourself or someone else? Patient reports no desire to harm self or others. Onset of symptoms was May 12, 2021. 12:07 Method Of Arrival: Ambulatory ll1 12:07 Acuity: TAN 4 ll1 Triage Assessment: 12:08 General: Appears in no apparent distress. Behavior is calm, cooperative, appropriate ll1 for age. Pain: Denies pain. Derm: Reports needs romie removed from RLE. Historical: - Allergies: 12:08 No Known Allergies; ll1 - PMHx: 12:08 Asperger syndrome; Autism; joint issues; ll1 - PSHx: 12:08 Appendectomy; ll1 - Immunization history:: Last tetanus immunization: up to date. - Social history:: Smoking status: Patient denies any tobacco usage or history of. Screenin:52 Abuse screen: Denies threats or abuse. Nutritional screening: No deficits noted. ll1 Tuberculosis screening: No symptoms or risk factors identified. Fall Risk None identified. Total Barnes Fall Scale indicates No Risk (0-24 pts). Assessment: 12:53 Reassessment: No changes from previously documented assessment. Patient and/or family ll1 updated on plan of care and expected duration. Pain level reassessed. Patient is alert, oriented x 3, equal unlabored respirations, skin warm/dry/pink. Patient states feeling better. Patient states symptoms have improved. Vital Signs: 12:07 BP 130 / 97; Pulse 83; Resp 17; Temp 97.8; Pulse Ox 100% ; Weight 98.43 kg; Height 5 ll1 ft. 11 in. (180.34 cm); Pain 0/10; 12:07 Body Mass Index 30.27 (98.43 kg, 180.34 cm) ll1 ED Course: 11:51 Patient arrived in ED. rg4 12:08 Triage completed. ll1 12:09 Arm band placed on. ll1 12:44 Meir Caal NP is PHCP. pm1 12:44 Jae Upton MD is Attending Physician. pm1 12:52 No provider procedures requiring assistance completed. Patient did not have IV access ll1 during this emergency room visit. 12:53 Patient has correct armband on for positive identification. Bed in low position. Call ll1 light in reach. Side rails up X 1. Administered Medications: No medications were administered Outcome: 12:49 Discharge ordered by MD. pm1 12:52 Discharged to home ambulatory. ll1 12:52 Condition: stable 12:52 Discharge instructions given to patient, Instructed on discharge instructions, follow up and referral plans. wound care, Demonstrated understanding of instructions, follow-up care, wound care. 12:53 Patient left the ED. ll1 Signatures: Meir Caal NP BILLING COLLECTIONS SPECIALIST pm1 Lima Proctor rg4 Oralia Mares RN RN ll1
--- NOTE | 2021-05-20 12:50 | EDPHYS ---
Physician Documentation [facility] Name: Wicho Adams Age: 25 yrs Sex: Male : 1995 Arrival Date: 05/20/2021 Time: 11:51 Bed Waiting Private MD: ED Physician Jae Upton HPI: 05/20 12:49 This 25 yrs old Male presents to ER via Ambulatory with complaints of Staple pm1 Removal. 12:49 The patient has romie on the medial aspect of right calf. Previous treatment: The pm1 patient was initially treated 10 day(s) ago, Treatment type: The patient's original treatment included romie. Sutures/romie progress: The patient has no c/o's. The wound is well-healing with no redness, swelling, discharge, or dehiscence reported. The patient has not experienced similar symptoms in the past. The patient has not recently seen a physician. Resenting to the ER with complaints of staple removal. Patient reports no signs of infection, well-healing wound. Historical: - Allergies: 12:08 No Known Allergies; ll1 - PMHx: 12:08 Asperger syndrome; Autism; joint issues; ll1 - PSHx: 12:08 Appendectomy; ll1 - Immunization history:: Last tetanus immunization: up to date. - Social history:: Smoking status: Patient denies any tobacco usage or history of. ROS: 12:49 Constitutional: Negative for fever, chills, and weight loss, Cardiovascular: Negative pm1 for chest pain, palpitations, and edema, Respiratory: Negative for shortness of breath, cough, wheezing, and pleuritic chest pain, MS/Extremity: Negative for injury and deformity, Skin: Negative for injury, rash, and discoloration, Neuro: Negative for headache, weakness, numbness, tingling, and seizure. 12:49 All other systems are negative. Exam: 12:49 Constitutional: This is a well developed, well nourished patient who is awake, alert, pm1 and in no acute distress. Head/Face: Normocephalic, atraumatic. 12:49 Eyes: Exam is negative for acute changes, Extraocular movements: no acute changes, Conjunctiva: no acute changes, no injection. 12:49 ENT: Exam is negative for acute changes, Mouth: no acute changes, Lips: normal, moist, Oral mucosa: normal, pink and intact, moist. 12:49 Cardiovascular: Exam negative for acute changes, Rate: normal, Rhythm: regular, Pulses: no pulse deficits are appreciated. 12:49 Respiratory: Exam negative for acute changes, respiratory distress, shortness of breath. 12:49 Skin: Wound recheck: Staple laceration closure: the wound is healing well, the edges are well approximated, no evidence of dehiscence, no drainage, no erythema, no swelling. 12:49 Neuro: Exam negative for acute changes, Orientation: is normal, Mentation: is normal, Motor: is normal, moves all fours. Vital Signs: 12:07 BP 130 / 97; Pulse 83; Resp 17; Temp 97.8; Pulse Ox 100% ; Weight 98.43 kg; Height 5 ll1 ft. 11 in. (180.34 cm); Pain 0/10; 12:07 Body Mass Index 30.27 (98.43 kg, 180.34 cm) ll1 Procedures: 12:48 Suture/Staple removal: Removed 5 romie, from medial aspect of right calf, site pm1 appears well healed, Patient tolerated well. MDM: 12:48 Data reviewed: vital signs. Data interpreted: Pulse oximetry: on room air is 100 %. pm1 Interpretation: normal. Counseling: I had a detailed discussion with the patient and/or guardian regarding: the historical points, exam findings, and any diagnostic results supporting the discharge/admit diagnosis, the need for outpatient follow up, to return to the emergency department if symptoms worsen or persist or if there are any questions or concerns that arise at home. 12:49 Patient medically screened. pm1 Administered Medications: No medications were administered Disposition: 17:32 Co-signature as Attending Physician, Jae Upton MD I agree with the assessment and rn plan of care. Attestation: The patient's history, exam findings, diagnostics, and a summary of any interventions or procedures was reviewed in detail with Meir Caal NP. Disposition Summary: 05/20/21 12:49 Discharge Ordered Location: Home pm1 Problem: new pm1 Symptoms: have improved pm1 Condition: Stable pm1 Diagnosis - Encounter for removal of sutures pm1 Followup: pm1 - With: Emergency Department - When: As needed - Reason: Worsening of condition Followup: pm1 - With: Private Physician - When: 2 - 3 days - Reason: Recheck today's complaints, Continuance of care, Re-evaluation by your physician Discharge Instructions: - Discharge Summary Sheet pm1 - How to Minimize Scarring After Surgery pm1 - Wound Closure Removal, Care After pm1 Forms: - Medication Reconciliation Form pm1 - Thank You Letter pm1 - Antibiotic Education pm1 - Prescription Opioid Use pm1 Signatures: Jae Upton MD MD rn Meir Caal NP LEAD MACHINIST pm1 Oralia Mares RN RN ll1
[2021-05-20 12:58] VITALS: BP 130/97; TEMP 97.8; O2SAT 100
== END 2021-05-20 12:53 | disposition home or self-care (01) ==
LOC: ER 11:49
DX: Z48.02 Encounter for removal of sutures (principal)
CPT/HCPCS: 99281

== ENCOUNTER 2021-06-29 08:51 | Emergency (ER) | payer OTHER ==
--- OUTSIDE RECORDS SUMMARY | 2021-06-29 08:55 | XMS REPORT | Continuity of Care Document ---
:1995 Author Organization [facility] t Address [address] [place] [address] Care Team Providers Name Role Phone WHITNEY Attending Clinician Unavailable MICHELLE Attending Clinician Unavailable MICHELLE Admitting Clinician Unavailable Payers Payer Name Policy Type Policy Number Effective Date Expiration Date S [facility] [id number] 2020 2024 PLAN [employer] 00:00:00 00:00:00 Problems This patient has no known problems. Allergies, Adverse Reactions, Alerts This patient has no known allergies or adverse reactions. Medications Ordered Filled Start Stop Current Ordering Indication Dosage Frequency Signature Comments Components Source Medication Medication Date Date Medication? Clinician (SIG) Name Name Meloxicam Meloxicam 2019- No Inna [place] [address] [facility] walking Yes Inna [place] as [facility] boot boot 5-02 directed [facility] Gabapentin Gabapentin Yes Inna [place] [address] [facility] 4-25 before [facility] Benadryl Benadryl Yes Inna [place] [address] [facility] Allergy Allergy as needed [facility] Procedures This patient has no known procedures. Encounters Start End Encounter Admission Attending Care Care Encounter Source Date/Time Date/Time Type Type Clinicians Facility Department ID 2021-06-14 Outpatient [facility], [facility] [id number] [place] 13:50:11 [facility] 2021-06-14 2021-06-14 amb[facility] [id number] [facility]00 [facility] 2018-04-30 2018-04-30 [place] [id number] [facility] 14:30:00 14:30:00 [facility] 2017-12-28 2017-12-28 [place] [id number] 14[facility]39:00 14:39:00 [facility] 2017-12-13 2017-12-13 [place] [id number] 14:18:00 14:18:00 [facility] Clinics 2017-12-12 2017-12-12 Out[place] [id number] 16:19:00 16:19:00 [facility] 2017-12-05 2017-12-05 [place] [id number] 14:00:00 14:00:00 [facility] 2017-11-22 2017-11-22 Out[place] [id number] 15:15:00 15:15:00 [facility] Clinics Results Test Description Test Time Test Comments Results Result Sourc e Comments RAD, CHEST, 1 2018-04-13 Reason for FINAL REPORT PATIENT ID: VIEW, NON DEPT 3 exam:->pneumot [id number] Chest one view 09:24:00 horaxShould INDICATION: Pneumothorax [...] MDReport Verified Date/Time: 04/25/2018 09:24:12 Reading Location: [facility] Radiology Reading Room MIN B12 AND FOLATE 2018-04-25 02:48:00 Test Item Value Reference Range Interpretation Comme nts VITAMIN B12 (BEAKER) (test code = 774) < pg/mL 213-816 L FOLATE (BEAKER) (test code = 362) 2.4 ng/mL >=7.0 L VANCOMYCIN LEVEL, [id number] 02:10:00 Test Item Value Reference Range Interpretation Comments VANCOMYCIN TROUGH (BEAKER) (test 8.6 ug/mL 10.0-20.0 L code = 522) CT, CHEST, WITH [id number] 12:29:00Left pneumothorax and pneumediastinum with pneumoperitoneum and [...] MDReport Verified Date/Time: 04/24/2018 12:29:48 Reading Location: [address] Body Reading Room CT, [id number] 12:29:00Left pneumothorax and pneumediastinum with pneumoperitoneum and [...] MDReport Verified Date/Time: 04/24/2018 12:29:48 Reading Location: [facility] C013Y CT Body Reading Room RAD, CHEST, 1 VIEW, NON [id number] 07:33:00Reason for exam:- >spontaneous PTX, pneumomediastinumShould this [...] MDReport Verified Date/Time: 04/24/2018 07:33:30 Reading Location: [facility] Reading Room HEPATIC FUNCTION [id number] 05:47:00 Test Item Value Reference Range Interpretation [...] = 15 U/L 6-55 347) BASIC METABOLIC [id number] 05:47:00 Test Item Value Reference Range Interpretation [...] NOT APPLICABLE FOR DIALYSIS PATIEN TS. PROTHROMBIN [id number] 05:42:00 Test Item Value Reference Range Interpretation [...] (test code = 2801) RAPID DRUG SCREEN, [id number] 13:53:00 Test Item Value Reference Range Interpretation [...] situations. Chain of custody not maintained. Some chej-uil-pctedqm medications, as well as adulterants, may cause inaccurate results. Clinical correlation should be applied. A more comprehensive drug screen or confirmation of a detected drug may be performed upon request. [id number] 13:27:00 Test Item Value Reference Range Interpretation Comments ALPHA-1 ANTITRYPSIN 169.80 mg/dL 90.00-200.00 Specimen slightly (BEAKER) (test code = hemoly zed 502) [id number] 12:53:00 Test Item Value Reference Range Interpretation Comments HOMOCYSTEINE (BEAKER) (test code 40.2 umol/L 5.1-15.4 H = 642) HEPATIC FUNCTION [id number] 12:38:00 Test Item Value Reference Range Interpretation [...] 6-55 347) RAD, CHEST, 1 VIEW, NON [id number] 09:53:00Reason for exam:- >pneumothoraxShould this be performed [...] MDReport Verified Date/Time: 04/23/2018 09:53:45 Reading Location: [facility] Radiology Reading Room BASIC METABOLIC [id number] 05:54:00 Test Item Value Reference Range Interpretation [...] PATIEN TS. CBC W/PLT COUNT & AUTO [id number] 23:44:00 Test Item Value Reference Range Interpretation [...] PERCENT (BEAKER) (test code = 2801) POCT-GLUCOSE [id number] 21:08:00 Test Item Value Reference Range Interpretation Comments POC-GLUCOSE METER 133 mg/dL 70-110 H TESTED AT [facility] 6720 (BEAKER) (test code = CHIRAG CRUZ 1538) [id number]
[2021-06-29] MEDS ORDERED: IBUPROFEN 400 MG TAB ONE (09:06)
[2021-06-29] MEDS ORDERED: AMOX/K CLAV 875 MG TAB ONE (09:06)
--- NOTE | 2021-06-29 09:06 | ER ---
Nurse's Notes [facility] Name: Wicho Adams Age: 25 yrs Sex: Male : 1995 Arrival Date: 06/29/2021 Time: 08:53 Bed 11 Private MD: Claudia Herring Diagnosis: Periapical abscess without sinus Presentation: 06/29 09:01 Chief complaint: Patient states: toothache x 2 months ago, pt states "I think I have an aa5 abscess now". Coronavirus screen: At this time, the client does not indicate any symptoms associated with coronavirus-19. Ebola Screen: No symptoms or risks identified at this time. Initial Sepsis Screen: Does the patient meet any 2 criteria? No. Patient's initial sepsis screen is negative. Does the patient have a suspected source of infection? No. Patient's initial sepsis screen is negative. Risk Assessment: Do you want to hurt yourself or someone else? Patient reports no desire to harm self or others. Onset of symptoms was April 2021. 09:01 Acuity: TAN 4 aa5 09:01 Method Of Arrival: Ambulatory aa5 Historical: - Allergies: 09:03 No Known Allergies; aa5 - PMHx: 09:03 Asperger syndrome; Autism; joint issues; aa5 - PSHx: 09:03 Appendectomy; aa5 - Immunization history:: Client reports receiving the 2nd dose of the Covid vaccine. - Social history:: Smoking status: Patient denies any tobacco usage or history of. Screenin:04 Abuse screen: Denies threats or abuse. Nutritional screening: No deficits noted. tw2 Tuberculosis screening: No symptoms or risk factors identified. Fall Risk None identified. Assessment: 09:12 General: Appears uncomfortable, Behavior is crying. Pain: Complains of pain in mouth. tw2 Neuro: Level of Consciousness is awake, alert, obeys commands, Oriented to person, place, time, situation. Respiratory: Airway is patent Respiratory effort is even, unlabored, Respiratory pattern is regular, symmetrical. EENT: Reports pain. 09:15 Reassessment: Registration with pt at this time, completing registration forms. tw2 09:23 Reassessment: pt requesting an injection of what he got last time. provider notified. tw2 09:31 Reassessment: No changes from previously documented assessment. Patient and/or family tw2 updated on plan of care and expected duration. Pain level reassessed. Patient is alert, oriented x 3, equal unlabored respirations, skin warm/dry/pink. Vital Signs: 09:01 BP 154 / 109; Pulse 64; Resp 16 S; Temp 97.0(TE); Pulse Ox 100% on R/A; Weight 149.69 aa5 kg (R); Height 5 ft. 11 in. (180.34 cm) (R); 09:04 BP 146 / 101; aa5 09:01 Body Mass Index 46.03 (149.69 kg, 180.34 cm) aa5 ED Course: 08:53 Patient arrived in ED. am2 08:53 Claudia Herring FNP-C is Private Physician. am2 08:53 Rebecca Weldon FNP-C is [facility]. kb 08:53 Jae Upton MD is Attending Physician. kb 08:57 Bed in low position. Call light in reach. tw2 09:01 Arm band placed on. aa5 09:02 Triage completed. aa5 09:15 Mariajose Han, RN is Primary Nurse. tw2 09:28 Awaiting: injection time prior to discharge. tw2 09:31 No provider procedures requiring assistance completed. Patient did not have IV access tw2 during this emergency room visit. Administered Medications: 09:12 Drug: Augmentin (Amoxicillin-Clavulanate) 875 mg Route: PO; tw2 09:31 Follow up: Response: No adverse reaction tw2 09:12 Not Given (Patient Refused; pt reports taking Ibuprofen 20 mins ptaa): Ibuprofen 800 mg tw2 PO once 09:28 Drug: Ketorolac 60 mg Route: IM; Site: left ventrogluteal; tw2 09:31 Follow up: Response: No adverse reaction; No adverse reaction. pt reports no adverse tw2 reactions when he last got the injection. Outcome: 09:05 Discharge ordered by . kb 09:31 Discharged to home ambulatory. tw2 09:31 Condition: stable 09:31 Discharge instructions given to patient, Instructed on discharge instructions, follow up and referral plans. medication usage, Demonstrated understanding of instructions, follow-up care, medications, Prescriptions given X 1. 09:32 Patient left the ED. tw2 Signatures: Rebecca Weldon FNP-C FNP-Ckb Calderon Ania, RN RN aa5 Mariajose Han RN RN tw2 Lauren Daniel am2 Corrections: (The following items were deleted from the chart) : 09:31 Reassessment: Patient appears in no apparent distress at this time. No changes tw2 from previously documented assessment. Patient and/or family updated on plan of care and expected duration. Pain level reassessed. Patient is alert, oriented x 3, equal unlabored respirations, skin warm/dry/pink. tw2
--- NOTE | 2021-06-29 09:06 | EDPHYS ---
Physician Documentation [facility] Name: Wicho Adams Age: 25 yrs Sex: Male : 1995 Arrival Date: 06/29/2021 Time: 08:53 Bed 11 Private MD: Claudia Herring ED Physician Jae Upton HPI: 06/29 09:36 This 25 yrs old Male presents to ER via Ambulatory with complaints of kb Toothache, Abscess. 09:36 The patient presents with pain, redness, swelling. The problem is located in the lower kb right second molar (#31) and lower right first molar (#30) and lower right second bicuspid (#29). Onset: The symptoms/episode began/occurred 2 month(s) ago. Duration: The symptoms are continuous. Modifying factors: The symptoms are alleviated by nothing, the symptoms are aggravated by nothing. Associated signs and symptoms: Pertinent positives: pain, redness in area, swelling. Severity of symptoms: At their worst the symptoms were moderate, in the emergency department the symptoms are unchanged. The patient has not experienced similar symptoms in the past. The patient has not recently seen a physician. Historical: - Allergies: 09:03 No Known Allergies; aa5 - PMHx: 09:03 Asperger syndrome; Autism; joint issues; aa5 - PSHx: 09:03 Appendectomy; aa5 - Immunization history:: Client reports receiving the 2nd dose of the Covid vaccine. - Social history:: Smoking status: Patient denies any tobacco usage or history of. ROS: 09:31 Constitutional: Negative for fever, chills, and weight loss. kb 09:31 ENT: Positive for dental pain. 09:31 All other systems are negative. Exam: 09:36 Constitutional: This is a well developed, well nourished patient who is awake, alert, kb and in no acute distress. Head/Face: Normocephalic, atraumatic. ENT: Moist Mucous membranes Respiratory: Respirations even and unlabored. No increased work of breathing, no retractions or nasal flaring. Skin: Warm, dry with normal turgor. Normal color. MS/ Extremity: Pulses equal, no cyanosis. Neurovascular intact. Full, normal range of motion. Neuro: Awake and alert, GCS 15, oriented to person, place, time, and situation. Moves all extremities. Normal gait. Psych: Awake, alert, with orientation to person, place and time. Behavior, mood, and affect are within normal limits. 09:36 ENT: Dental exam: dental caries, specifically in the lower right second molar (#31), gum swelling, that is moderate, specifically in the lower right second bicuspid (#29), lower right first molar (#30) and lower right second molar (#31), pain, that is moderate, specifically in the lower right second bicuspid (#29), lower right first molar (#30) and lower right second molar (#31). Vital Signs: 09:01 BP 154 / 109; Pulse 64; Resp 16 S; Temp 97.0(TE); Pulse Ox 100% on R/A; Weight 149.69 aa5 kg (R); Height 5 ft. 11 in. (180.34 cm) (R); 09:04 BP 146 / 101; aa5 09:01 Body Mass Index 46.03 (149.69 kg, 180.34 cm) aa5 MDM: 09:00 Patient medically screened. kb 09:35 Data reviewed: vital signs, nurses notes. Data interpreted: Pulse oximetry: on room air kb is 100 %. Interpretation: normal. Counseling: I had a detailed discussion with the patient and/or guardian regarding: the historical points, exam findings, and any diagnostic results supporting the discharge/admit diagnosis, the need for outpatient follow up, a dentist, to return to the emergency department if symptoms worsen or persist or if there are any questions or concerns that arise at home. Administered Medications: 09:12 Drug: Augmentin (Amoxicillin-Clavulanate) 875 mg Route: PO; tw2 09:31 Follow up: Response: No adverse reaction tw2 09:12 Not Given (Patient Refused; pt reports taking Ibuprofen 20 mins ptaa): Ibuprofen 800 mg tw2 PO once 09:28 Drug: Ketorolac 60 mg Route: IM; Site: left ventrogluteal; tw2 09:31 Follow up: Response: No adverse reaction; No adverse reaction. pt reports no adverse tw2 reactions when he last got the injection. Disposition: 11:43 Co-signature as Attending Physician, Jae Upton MD I agree with the assessment and rn plan of care. Attestation: The patient's history, exam findings, diagnostics, and a summary of any interventions or procedures was reviewed in detail with Rebecca HARDY. Disposition Summary: 06/29/21 09:05 Discharge Ordered Location: Home kb Condition: Stable kb Diagnosis - Periapical abscess without sinus kb Followup: kb - With: Emergency Department - When: As needed - Reason: Worsening of condition Followup: kb - With: Private Physician - When: 2 - 3 days - Reason: Recheck today's complaints, Continuance of care, Re-evaluation by your physician Discharge Instructions: - Discharge Summary Sheet kb - Dental Pain, [id number] kb - Dental Abscess, [id number] kb Forms: - Medication Reconciliation Form kb - Thank You Letter kb - Antibiotic Education kb - Prescription Opioid Use kb - Work release form iw Prescriptions: - Augmentin 875-125 mg Oral Tablet - take 1 tablet by ORAL route every 12 hours for 10 days; 20 tablet; Refills: 0, kb Product Selection Permitted Signatures: Rebecca Weldon FNP-C FNP-Jae Olmedo MD MD rn Ania Durham, RN RN aa5 Mariajose Han RN RN tw2
[2021-06-29] MEDS ORDERED: KETOROLAC 30 MG/ML INJ ONE (09:24)
[2021-06-29 09:59] VITALS: TEMP 97; O2SAT 100
[2021-06-29 10:00] VITALS: BP 146/101
== END 2021-06-29 09:32 | disposition home or self-care (01) ==
LOC: ER 08:51
DX: K04.7 Periapical abscess without sinus (principal)
CPT/HCPCS: 96372; 99283